=== PATIENT | female | born 1970 | race Caucasian/White ===

== ENCOUNTER 2018-05-08 10:22 | Day surgery (SDC) | payer MEDICARE, MEDICAID ==
[~2018-05-08 10:22] MED LIST: Acetaminophen TAB* 325 MG PO ONE; Buffered Lidocaine 0.9% SYRIN* 5 ML/SYR SYRINGE INTRADERM ONE; DiMENhydriNATE IV* 50 MG/ML VIAL IV PUSH PRN; HYDROcodone/ACETAMIN 5-325 MG* 1 TAB PO PRN; HYDROmorphone INJ1* 1 MG/ML SYRINGE IV PRN; Lactated Ringers 1000 ML Bag* 1,000 ML IV SCH; Levalbuterol 0.63MG/3ML NEB* UNIT OF USE INH PRN; Naloxone* 0.4 MG/ML 1 ML VIAL IV PRN; Ondansetron INJ* 2 MG/ML VIAL IV PRN; PROCHLORPERAZINE INJ 5 MG/ML 2 ML VIAL IV PRN; Scopolamine 1.5 mg* PATCH TRANSDERM PRN; diPHENhydraMINE IV* 50 MG/ML 1 ml VIAL (BENADRYL) IV PRN; fentaNYL* 50 MCG/ML 2 ML VIAL (100 MCG VIAL) IV PRN
[2018-05-08] MEDS ORDERED: Succinylcholine* 20 MG/ML 10 ML VIAL ONE (10:37)
[2018-05-08] MEDS ORDERED: Acetaminophen TAB* 325 MG ONE (10:57)
[2018-05-08] MEDS ORDERED: Midazolam* 1 MG/ML 2 ML VIAL (2 MG) ONE (12:00)
[2018-05-08] MEDS ORDERED: fentaNYL* 50 MCG/ML 2 ML VIAL (100 MCG VIAL) ONE (12:00)
[2018-05-08] MEDS ORDERED: Lidocaine 2% PF * 5 ML VIAL ONE ×2 (12:29)
[2018-05-08] MEDS ORDERED: Propofol* 10 MG/ML 20 ML BTL ONE (12:29)
[2018-05-08] MEDS ORDERED: Ondansetron INJ* 2 MG/ML VIAL ONE (12:29)
[2018-05-08] MEDS ORDERED: Dexamethasone IV* 4 MG/ML 1 ML (4 MG) ONE (12:29)
[2018-05-08] MEDS ORDERED: HYDROcodone/ACET. 7.5/325 LIQ* 15 ML UDC ONE (13:17)
[2018-05-08 14:00] VITALS: BP 105/55
--- NOTE | 2018-05-08 20:10 | OP ---
DATE OF OPERATION: 05/08/18 - [facility] DATE OF : 66 SURGEON: Irvin Castellano MD PRE-OP DIAGNOSIS: Right tonsil mass. POST-OP DIAGNOSIS: Right tonsil mass. OPERATIVE PROCEDURE: Biopsy, right tonsil. INDICATIONS: This 47-year-old female smoker noted on examination to have a right tonsil mass, this was difficult to biopsy because of excessive gag in the office. DESCRIPTION OF PROCEDURE: The patient was taken to the operating room. General anesthetic was given. The patient was intubated. suspending the tongue, mandible, and soft palate. Right tonsil was palpated and examined. There was a large papillomatous lesion, appeared to be like a papilloma, most likely viral etiology. Bipolar forceps were used to resect it out, sent for permanent section. Palpating both tonsils, tongue base, and soft palate region was all soft with no evidence of any neoplasm. The patient was therefore then awakened and sent to the recovery room in stable condition. Instrument and sponge counts were correct. Blood loss minimal. [id number]/[facility] #: [id number] [facility]
[2018-05-11] MEDS ORDERED: Scopolamine PATCH Remove* 1 NOTE MISC PATCH OFF ONE (09:54)
== END 2018-05-08 16:38 | disposition home or self-care (01) ==
LOC: OR 10:22
PROVIDERS: ATTEND Otolaryngology
DX: D10.6 Benign neoplasm of nasopharynx (principal); F17.210 Nicotine dependence, cigarettes, uncomplicated; E11.9 Type 2 diabetes mellitus without complications; Z79.84 Long term (current) use of oral hypoglycemic drugs; E03.9 Hypothyroidism, unspecified; F41.8 Other specified anxiety disorders; G47.33 Obstructive sleep apnea (adult) (pediatric)
CPT/HCPCS: 88305; A9270-GY; J0330; J1100; J2250; J2405; J2704; J3010

== ENCOUNTER 2018-05-10 17:07 | Emergency (ER) | payer MEDICARE, MEDICAID ==
--- OUTSIDE RECORDS SUMMARY | 2018-05-10 17:49 | XMS REPORT | Continuity of Care Document ---
:1970 External Reference #:[id number] Author Name Dagmar De Dios Care Team Providers Name Role Phone Emily Carr MD Primary Care Physician Unavailable Payers Type Date Identification Numbers Payment Provider Subscriber Effective: 2014 Policy Number: [id number] Medicare Tierra Christy PayID: [id number] [address] [place] [address] Effective: 2014 Policy Number: [id number] Medicaid Tierra Christy Group Name: 1 1 [address] PayID: [id number] [place] [address] Effective: 2011 Policy Number: [employer] Medicaid Tierra Christy [id number] Expires: 2014 PayID: [id number] [address] [address] [place] [address] Advance Directives Description No Information Available Problems Date Description Provider Status Onset: 07/18/2011 Obesity Trisha Long M.D. Active Onset: 12/21/2015 Hyperlipidemia Emily Carr M.D. Active Onset: 12/21/2015 Tobacco user Emily Carr M.D. Active Onset: 08/29/2016 Type 2 diabetes mellitus Emily Carr M.D. 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 Inactive Inactive: 08/29/2016 Onset: 01/24/2016 Impaired fasting glycaemia Emily Carr M.D. Inactive Inactive: 08/29/2016 Onset: 07/18/2011 Edema Trisha Long M.D. Inactive Inactive: 08/29/2016 Onset: 07/18/2011 Adjustment disorder with depressed Trisha Long M.D. Resolved mood Resolved: 10/31/2016 Family History Date Family Member(s) Problem(s) Comments General Breast Cancer : (age 49 Father due to Cancer unk cancer of Years) bleeding Mother 78 Social History Type Date Description Comments Sex Unknown Marital Status Marital Status 2 Times Occupation Disabled depression following work related CTS Tobacco Use Start: Unknown current cigarette 1 pk /day smoker Smoking Status Reviewed: 04/22/18 current cigarette 1 pk /day smoker ETOH Use Denies alcohol use Tobacco Use Start: Unknown Patient is a current smokes 1 ppd smoker, smokes every day Recreational Drug Use Denies Drug Use Exercise Type/Frequency Exercises sporadically Allergies, Adverse Reactions, Alerts Date Description Reaction Status Severity Comments 06/16/2011 Paxil Contact dermatitis Active Medications Medication Date Status Form Strength Qnty SIG Indications Ordering Provider Bupropion HCL ER 04/18 Active Tablets ER 150mg 180ta take one F32.89 Emily (SR) 12HR bs tablet by brittany Carr M.DTangela daily X 7 days then every 12 hours Levothyroxine 01/21 Active Tablets 50mcg 90tab 1 by mouth Emily Sodium s every day Santo Carr Metformin HCL 08/29 Active Tablets 500mg 120ta 2 by mouth Z01.818 bs in in the Carr, morning M.DTangela and 2 tab at night daily Onetouch Delica 06/12 Active Misc 100un check once R73.01 Emily Lancets its a Jaime Carr 33G day.please M.D. notify pt. when ready. Zetia 10/14 Active Tablets 10mg 90tab take one Emily s tablet by Carr, mouth M.D. every evening Ra Loratadine 01/21 Active Tablets 10mg 30tab 1 by mouth Emily /2014 s every day Santo Carr Onetouch Ultra 10/16 Active Strips 180un test 1 R73.01 Emily its times a Bruno, day or as M.D. needed dx e11.9 Pravachol 10/08 Active Tablets 80mg 90tab one at E75.6 s night Santo Carr Aspirin 81 Low 07/18 Hx Chewtabs 81mg once a day Emily otc Charlie Carr M.D. 01/16 Eq Nicotine 07/18 Hx Patches 21mg/24HR 28uni use as F17.210 Emily /2018 24HR ts Charlie Toure M.D. 08/22 Wellbutrin SR 07/18 Hx Tablets ER 100mg 30tab not sure F17.210 Emily /2018 12HR s if she is Bruno, - taking---o MTangelaDTangela 04/18 nce a Nicorette Starter 06/12 Hx Gum 2mg 100un use a Emily its piece of Charlie Carr gum in M.D. 07/15 place cigarettes Chantix 04/16 Hx Tablets 1mg 30tab as Emily Continuing s directed Mehdi Carr - Santo 06/12 Chantix Starting 03/23 Hx Tablets 0.5mg X 53tab take as Emily 11 & 1 mg s Charlie Toure X 42 on the M.D. 04/16 Tolnaftate 01/29 Hx Powder 1% 45gm apply on B35.3 Charlie Khan affected M.D. 04/15 areas of foot twice a day Valacyclovir HCL 10/28 Hx Tablets 1gm take 1 tablet by - mouth 11/07 times a day Diflucan 08/26 Hx Tablets 150mg 2tabs 1 tab by Z12.4 Trisha mouth once Charlie Long and Santo 10/14 repeat in 1 week Venlafaxine HCL 06/18 Hx Caps ER 75mg 90cap 1 by mouth F43.21 Trisha 24HR s every day Charlie Long M.D. 01/26 Keflex 01/15 Hx Capsules 250mg 30cap 1 tab by 682.6 Trisha s mouth Charlie Long every 8 M.DTangela Glucophage XR 01/15 Hx Tablets ER 1000mg 60tab 1 by mouth Trisha 24HR s 2x per day Charlie Long M.D. 12/20 Fluticasone 01/15 Hx Suspension 50mcg/Act 1unit 2 sprays 477.9 Trisha s each Charlie Long nostril Santo 06/182016 Metformin HCL ER 11/12 Hx Tablets ER 500mg 30tab 1 by mouth Trisha 24HR s every day Charlie Long M.D. 11/12 Metformin HCL ER 11/12 Hx Tablets ER 500mg 30tab 1 by mouth Trisha (Osm) 24HR s every day Charlie Long M.D. 11/12 Glucophage XR 11/12 Hx Tablets ER 500mg 30tab 1 by mouth Trisha 24HR s every day Charlie Long M.D. 01/15 Metformin HCL ER 11/10 Hx Tablets ER 500mg 30tab 1 by mouth 790.21 Trisha (Osm) 24HR s every day Charlie Long M.D. 11/12 Hydrochlorothiazi 11/10 Hx Tablets 12.5mg 30tab 1 by mouth 782.3 Trisha yadav s every day Charlie Long M.D. 12/20 Onetouch Lancets 10/16 Hx Misc 100un use 2 x R73.01 Emily /2015 its daily dx Charlie Carr.Srinivasan 06/12 r73. Hydrochlorothiazi 09/15 Hx Tablets 12.5mg 30tab 1 by mouth 729.81 Trisha de s every day Charlie Long M.D. 01/15 Bupropion HCL ER 09/07 Hx Tablets ER 200mg 30tab 1 by mouth Trisha (SR) 12HR s every day Charlie Long M.D. 01/26 Bupropion 06/12 Hx Tablets ER 200mg 30tab 1 by mouth Trisha 12HR s qd Charlie Long M.D. 09/07 Sulfamethoxazole/ 02/27 Hx Tablets 800-160mg 10tab 1 tab by 788.1 Trisha Trimethoprim s mouth 2x Charlie Long per day Santo 03/[address] 02/[address] 500mg 60tab not taking 842.01 Charlie Mccord M.D. 10/16 Splint Formed 02/06 Hx 2unit 842.01 Trisha Charlie Mccord M.D. 01/02 Fexofenadine HCL 06/03 Hx Tablets 180mg 30tab 1 by mouth s every day Charlie Long M.D. 06/18 Bupropion HCL XL 04/25 Hx Tablets ER 150mg 30tab 1 po qd 309.0 24HR s Charlie Long M.D. 05/26 Sulfamethoxazole/ 02/18 Hx Tablets 800-160mg 14tab 1 tab po 788.1 Trisha Trimethoprim s 2x per day Charlie Long M.D. 04/25 Venlafaxine HCL 01/16 Hx Caps ER 150mg 90cap 1 by mouth 24HR s every day Charlie Long M.D. 10/31 Fexofenadine HCL 12/27 Hx Tablets 180mg 30tab 1 po qd 461.8 Charlie Mccord M.D. 04/25 Venlafaxine HCL 12/27 Hx Caps ER 75mg 30cap 1 po qd 309.0 Trisha ER 24HR Charlie Mccord M.D. 08/26 Venlafaxine HCL 09/17 Hx Caps ER 150mg 90cap 1 po qd Trisha ER 24HR Charlie Mccord M.D. 01/16 Metronidazole 06/27 Hx Gel 0.75% 1tube 1 applicator Charlie Long M.D. 09/17 al for days Venlafaxine HCL 05/13 Hx Tablets 75mg 30tab 1 po qd Charlie Mccord M.D. 09/17 Venlafaxine HCL 05/09 Hx Caps ER 37.5mg 50cap 1 tab po 309.0 Trisha 24HR s every day Ethan, - for 7 M.D. 05/14 days, 2 tab po every day for 3 weeks Pravachol 05/09 Hx Tablets 40mg 60tab 2 tab by 272.9 Trisha s mouth Ethan, - every day M.D. 10/08 Sertraline HCL 12/04 Hx Tablets 100mg 45tab 1 1/ tab 309.0 Trisha /2012 s po qd Ethan - M.D. 05/09 Pravachol 09/04 Hx Tablets 80mg 30tab 1 tab po Trisha s everyday Ethan - M.D. 05/14 Pravastatin 06/20 Hx Tablets 40mg 90tab take 1 Trisha s tablet by Ethan, - mouth once M.D. 09/06 Furosemide 06/16 Hx Tablets 20mg 10tab 1/2 tab po 272.9 s every day Ethan, - for 5 M.D. 06/16 days. september contine for 10 days if swelling is not gone Sertraline HCL 06/16 Hx Tablets 100mg 30tab 1 po qd Trisha /2012 s Ethan - M.D. 05/09 Furosemide Hx Tablets 20mg 60tab 1 po qam Trisha / s Ethan - M.D. 12/04 Sertraline HCL Hx Tablets 100mg 90tab 1 po qd Unknown /0000 s - 06/16 Sertraline 00 Hx Tablets 100 30tab 1 po qd Jey, / cristofer Wisdom - DO 06/16 Pravastatin Hx Tablets 100mg 30tab 1 tablet Unknown Sodium /0000 s once daily - at bedtime 07/17 Furosemide Hx Tablets 20mg 30tab take 1 Trisha s tablet Ethan - every M.D. 05/09 Bupropion HCL SR Hx Tablets 200mg 30tab 1 by mouth Ethan, /0000 s qd Charlie Rico MD 06/12 Tramadol HCL Hx Tablets 50mg 50tab four times Unknown /0000 s a day as - needed 03/18 Trazodone HCL Hx Tablets 50mg 30tab 1-2 tablet Emily /0000 s at bedtime Bruno - as needed M.DTangela 08/22 Folic Acid Hx Tablets 400mcg take one Unknown /0000 tablet by - mouth 10/21 every day (supplemen t) Vitamin C Plus 00 Hx Tablets 1000mg 1 by mouth Unknown /0000 1 time - week;ly 08/22 Vitamin D2 Hx Tablets 50,000Uni 1 by mouth Unknown /0000 ts once a - week for 8 Immunizations CPT Code Status Date Vaccine Lot # [id number] Given 01/16/2018 Influenza Virus Vaccine, Quadrivalent, Split, [id number] Preservative Free 52549 Given 07/18/2017 Pneumonia Vaccine [id number] 68256 Given 01/29/2017 Influenza Virus Vaccine, Quadrivalent, Split, [id number] Preservative Free 57542 Given 08/29/2016 Tdap - Tetanus/Diptheria/Acellular Pertussis [id number] 02658 Given 08/29/2016 Pneumococcal Conjugate Vaccine 13 Valent For [id number] Intramuscular Use 93569 Given 01/27/2016 Influenza Virus Vaccine, Quadrivalent, Split, [id number] Preservative Free 07375 Given 06/18/2015 Influenza Virus Vaccine, Quadrivalent, Split, [id number] Preservative Free 93194 Given 02/27/2014 Flu Vaccine Split Virus Preservative Free For [id number] Indiv 3Yr Older 56260 Given 02/18/2013 Flu Vaccine Split Virus Preservative Free For [id number] Indiv 3Yr Older Vital Signs Date Vital Result Comment 04/22/2018 7:31am Height 61.7 inches 5'1.70" Weight 220.00 lb Heart Rate 85 /min BP Systolic Sitting 128 mmHg BP Diastolic Sitting 80 mmHg O2 % BldC Oximetry 98 % BMI (Body Mass Index) 40.6 kg/m2 04/18/2018 10:07am Height 61.7 inches 5'1.70" Weight 221.00 lb Heart Rate 85 /min BP Systolic Sitting 120 mmHg BP Diastolic Sitting 78 mmHg O2 % BldC Oximetry 98 % BMI (Body Mass Index) 40.8 kg/m2 04/16/2018 1:07pm Height 61.7 inches 5'1.70" Weight 222.25 lb Heart Rate 84 /min BP Systolic Sitting 128 mmHg Lue large cuff BP Diastolic Sitting 78 mmHg Lue large cuff Respiratory Rate 16 /min O2 % BldC Oximetry 98 % BMI (Body Mass Index) 41.0 kg/m2 01/16/2018 1:01pm Height 61.7 inches 5'1.70" Weight 229.00 lb Heart Rate 78 /min BP Systolic Sitting 128 mmHg BP Diastolic Sitting 80 mmHg O2 % BldC Oximetry 98 % BMI (Body Mass Index) 42.3 kg/m2 10/22/2017 9:48am Height 62 inches 5'2" Weight 225.25 lb Heart Rate 88 /min BP Systolic Sitting 126 mmHg Lue large cuff BP Diastolic Sitting 90 mmHg Lue large cuff Respiratory Rate 16 /min O2 % BldC Oximetry 98 % BMI (Body Mass Index) 41.2 kg/m2 08/22/2017 3:39pm Weight 227.00 lb Heart Rate 84 /min BP Systolic Sitting 130 mmHg BP Diastolic Sitting 76 mmHg O2 % BldC Oximetry 97 % 07/18/2017 10:35am Weight 225.00 lb Heart Rate 87 /min BP Systolic Sitting 128 mmHg BP Diastolic Sitting 82 mmHg O2 % BldC Oximetry 98 % 07/16/2017 10:10am Height 62 inches 5'2" Weight 223.00 lb Heart Rate 92 /min BP Systolic Sitting 110 mmHg BP Diastolic Sitting 82 mmHg Respiratory Rate 14 /min O2 % BldC Oximetry 98 % BMI (Body Mass Index) 40.8 kg/m2 04/16/2017 10:24am Height 62 inches 5'2" Weight 226.00 lb Heart Rate 72 /min BP Systolic Sitting 120 mmHg BP Diastolic Sitting 80 mmHg Respiratory Rate 14 /min O2 % BldC Oximetry 98 % BMI (Body Mass Index) 41.3 kg/m2 02/14/2017 10:55am Height 62 inches 5'2" Weight 220.00 lb BMI (Body Mass Index) 40.2 kg/m2 02/14/2017 10:48am Weight 220.00 lb Heart Rate 88 /min BP Systolic 120 mmHg BP Diastolic 80 mmHg Respiratory Rate 14 /min 01/29/2017 11:57am Weight 217.38 lb Heart Rate 76 /min BP Systolic Sitting 122 mmHg BP Diastolic Sitting 82 mmHg Body Temperature 97.6 F O2 % BldC Oximetry 98 % 01/03/2017 12:05pm Height 62 inches 5'2" Weight 214.00 lb Heart Rate 84 /min BP Systolic Sitting 124 mmHg BP Diastolic Sitting 78 mmHg Respiratory Rate 16 /min Pain Level 0 O2 % BldC Oximetry 98 % BMI (Body Mass Index) 39.1 kg/m2 12/18/2016 11:23am Height 62 inches 5'2" Weight 218.00 lb Heart Rate 72 /min BP Systolic Sitting 102 mmHg BP Diastolic Sitting 68 mmHg Respiratory Rate 14 /min O2 % BldC Oximetry 98 % BMI (Body Mass Index) 39.9 kg/m2 Neck Circumference in inches 15 10/31/2016 9:02am Weight 227.00 lb Heart Rate 79 /min BP Systolic 118 mmHg BP Diastolic 64 mmHg Body Temperature 97.7 F O2 % BldC Oximetry 98 % 08/29/2016 11:24am Height 62 inches 5'2" Weight 217.00 lb Heart Rate 76 /min BP Systolic 120 mmHg BP Diastolic 80 mmHg Body Temperature 97.4 F O2 % BldC Oximetry 98 % BMI (Body Mass Index) 39.7 kg/m2 01/27/2016 10:59am Weight 209.00 lb Heart Rate 75 /min BP Systolic Sitting 132 mmHg BP Diastolic Sitting 80 mmHg Body Temperature 97.5 F O2 % BldC Oximetry 98 % 12/21/2015 11:46am Weight 211.00 lb Heart Rate 84 /min BP Systolic Sitting 120 mmHg BP Diastolic Sitting 84 mmHg Body Temperature 97.7 F O2 % BldC Oximetry 98 % 10/15/2015 11:57am Weight 216.00 lb Heart Rate 74 /min BP Systolic Sitting 108 mmHg BP Diastolic Sitting 70 mmHg Body Temperature 97.9 F O2 % BldC Oximetry 98 % 08/27/2015 10:51am Weight 221.00 lb Heart Rate 75 /min BP Systolic Sitting 120 mmHg BP Diastolic Sitting 80 mmHg Body Temperature 98.3 F O2 % BldC Oximetry 98 % 06/18/2015 10:15am Height 60 inches 5'0" Weight 219.75 lb Heart Rate 82 /min BP Systolic Sitting 120 mmHg BP Diastolic Sitting 70 mmHg Body Temperature 97.5 F O2 % BldC Oximetry 98 % BMI (Body Mass Index) 42.9 kg/m2 01/29/2015 11:36am Weight 226.50 lb Heart Rate 83 /min BP Systolic Sitting 120 mmHg BP Diastolic Sitting 80 mmHg Body Temperature 96.7 F Pain Level 0 O2 % BldC Oximetry 99 % 01/15/2015 11:42am Weight 229.00 lb Heart Rate 109 /min BP Systolic Sitting 122 mmHg BP Diastolic Sitting 64 mmHg Body Temperature 100.7 F O2 % BldC Oximetry 96 % 11/12/2014 11:38am Height 60 inches 5'0" Weight 238.00 lb Pain Level 1 BMI (Body Mass Index) 46.5 kg/m2 11/10/2014 2:40pm Weight 238.50 lb Heart Rate 90 /min BP Systolic Sitting 112 mmHg BP Diastolic Sitting 68 mmHg Body Temperature 98.0 F O2 % BldC Oximetry 98 % 10/16/2014 2:33pm Height 60 inches 5'0" Weight 235.75 lb Heart Rate 98 /min BP Systolic Sitting 130 mmHg BP Diastolic Sitting 82 mmHg O2 % BldC Oximetry 98 % BMI (Body Mass Index) 46.0 kg/m2 10/08/2014 10:22am Height 60 inches 5'0" Weight 235.00 lb Pain Level 7 BMI (Body Mass Index) 45.9 kg/m2 09/15/2014 12:41pm Height 60 inches 5'0" Weight 235.75 lb Heart Rate 102 /min BP Systolic Sitting 124 mmHg BP Diastolic Sitting 76 mmHg Body Temperature 98.0 F Pain Level 4 O2 % BldC Oximetry 97 % BMI (Body Mass Index) 46.0 kg/m2 07/23/2014 10:02am Height 60 inches 5'0" Weight 227.00 lb Heart Rate 80 /min BMI (Body Mass Index) 44.3 kg/m2 07/03/2014 10:41am Height 60 inches 5'0" Weight 227.00 lb Heart Rate 82 /min BMI (Body Mass Index) 44.3 kg/m2 06/12/2014 2:35pm Weight 227.75 lb Heart Rate 76 /min BP Systolic Sitting 118 mmHg BP Diastolic Sitting 68 mmHg Body Temperature 98.1 F 05/28/2014 11:37am Height 60 inches 5'0" Heart Rate 84 /min BP Systolic 121 mmHg BP Diastolic 72 mmHg 03/19/2014 8:43am Height 60 inches 5'0" Weight 220.00 lb Heart Rate 88 /min BP Systolic 138 mmHg BP Diastolic 84 mmHg BMI (Body Mass Index) 43.0 kg/m2 03/18/2014 8:45am Height 60.50 inches 5'0.50" Weight 223.50 lb Heart Rate 91 /min BP Systolic Sitting 106 mmHg BP Diastolic Sitting 64 mmHg Body Temperature 98.4 F Pain Level 3 O2 % BldC Oximetry 98 % BMI (Body Mass Index) 42.9 kg/m2 03/05/2014 9:14am Height 60.50 inches 5'0.50" Weight 221.00 lb Heart Rate 88 /min BP Systolic Sitting 127 mmHg BP Diastolic Sitting 75 mmHg Pain Level 5 BMI (Body Mass Index) 42.4 kg/m2 02/27/2014 2:57pm Height 60.50 inches 5'0.50" Weight 221.00 lb Heart Rate 78 /min BP Systolic Sitting 110 mmHg BP Diastolic Sitting 80 mmHg Body Temperature 98.8 F O2 % BldC Oximetry 98 % BMI (Body Mass Index) 42.4 kg/m2 02/06/2014 4:40pm Weight 222.00 lb Heart Rate 96 /min BP Systolic Sitting 126 mmHg BP Diastolic Sitting 80 mmHg 11/25/2013 3:51pm Height 60.75 inches 5'0.75" Weight 222.00 lb Heart Rate 88 /min BP Systolic Sitting 110 mmHg BP Diastolic Sitting 80 mmHg BMI (Body Mass Index) 42.3 kg/m2 10/20/2013 4:02pm Height 60.75 inches 5'0.75" Weight 231.25 lb Heart Rate 92 /min BP Systolic Sitting 120 mmHg BP Diastolic Sitting 60 mmHg Body Temperature 98.7 F BMI (Body Mass Index) 44.0 kg/m2 08/26/2013 2:40pm Weight 229.00 lb Heart Rate 85 /min BP Systolic Sitting 109 mmHg BP Diastolic Sitting 67 mmHg 05/26/2013 3:56pm Weight 230.00 lb Heart Rate 94 /min BP Systolic Sitting 116 mmHg BP Diastolic Sitting 72 mmHg 04/25/2013 1:39pm Weight 227.50 lb Heart Rate 83 /min BP Systolic Sitting 116 mmHg BP Diastolic Sitting 74 mmHg 02/27/2013 12:11pm Heart Rate 98 /min BP Systolic Sitting 130 mmHg BP Diastolic Sitting 82 mmHg Body Temperature 96.8 F O2 % BldC Oximetry 96 % 02/18/2013 12:49pm Weight 227.00 lb Heart Rate 87 /min BP Systolic Sitting 131 mmHg BP Diastolic Sitting 83 mmHg Body Temperature 97.0 F 01/16/2013 1:32pm Weight 229.00 lb Heart Rate 87 /min BP Systolic Sitting 110 mmHg BP Diastolic Sitting 80 mmHg 12/27/2012 2:45pm Weight 227.00 lb Heart Rate 92 /min BP Systolic Sitting 142 mmHg BP Diastolic Sitting 95 mmHg BP Systolic Standing 151 mmHg BP Diastolic Standing 92 mmHg 09/17/2012 2:01pm Weight 222.00 lb Heart Rate 73 /min BP Systolic Sitting 123 mmHg BP Diastolic Sitting 68 mmHg 06/25/2012 2:36pm Height 60.75 inches 5'0.75" Weight 215.31 lb Heart Rate 80 /min BP Systolic Sitting 125 mmHg BP Diastolic Sitting 78 mmHg BMI (Body Mass Index) 41.0 kg/m2 05/09/2012 3:56pm Height 60.75 inches 5'0.75" Weight 215.00 lb Heart Rate 86 /min BP Systolic Sitting 126 mmHg BP Diastolic Sitting 68 mmHg BMI (Body Mass Index) 41.0 kg/m2 12/05/2011 4:34pm Height 60.75 inches 5'0.75" Weight 215.00 lb Heart Rate 88 /min BP Systolic Sitting 112 mmHg BP Diastolic Sitting 62 mmHg BMI (Body Mass Index) 41.0 kg/m2 07/18/2011 3:02pm Height 60.75 inches 5'0.75" Weight 209.00 lb Heart Rate 80 /min BP Systolic Sitting 123 mmHg BP Diastolic Sitting 72 mmHg Body Temperature 98.7 F BMI (Body Mass Index) 39.8 kg/m2 06/16/2011 1:59pm Height 60.75 inches 5'0.75" Weight 203.00 lb Heart Rate 80 /min BP Systolic Sitting 132 mmHg BP Diastolic Sitting 74 mmHg BMI (Body Mass Index) 38.7 kg/m2 Results Test Date Facility Test Result H/L Range Note CBC Auto Diff 04/22/2018 [facility] White Blood 7.8 10^3/uL N 3.5-10.[address] [place] [address] [phone] Red Blood Count 4.64 10^6/uL N 4.00-5.40 Hemoglobin 13.1 g/dL N 12.0-16.0 Hematocrit 40 % N 35-47 Mean Corpuscular Volume 86 fL N 80-97 Mean Corpuscular Hemoglobin 28 pg N 27-31 Mean Corpuscular HGB Conc 33 g/dL N 31-36 Red Cell Distribution Width 15 % N 10.5-15 Platelet Count 367 10^3/uL N 150-450 Mean Platelet Volume 7.8 fL N 7.4-10.4 Abs Neutrophils 4.5 10^3/uL N 1.5-7.7 Abs Lymphocytes 2.5 10^3/uL N 1.0-4.8 Abs Monocytes 0.5 10^3/uL N 0-0.8 Abs Eosinophils 0.2 10^3/uL N 0-0.6 Abs Basophils 0.1 10^3/uL N 0-0.2 Abs Nucleated RBC 0 10^3/uL Granulocyte % 57.9 % Lymphocyte % 31.6 % Monocyte % 6.6 % Eosinophil % 2.9 % Basophil % 1.0 % Nucleated Red Blood Cells % 0 Comp Metabolic Panel 04/22/2018 [facility] Sodium 140 mmol/L N 135-[address] [place] [address] [phone] Potassium 4.1 mmol/L N 3.5-5.0 Chloride 108 mmol/L N 101-111 Co2 Carbon Dioxide 25 mmol/L N 22-32 Anion Gap 7 mmol/L N 2-11 Glucose 94 mg/dL N 70-100 Blood Urea Nitrogen 13 mg/dL N 6-24 Creatinine 0.95 mg/dL N 0.51-0.95 BUN/Creatinine Ratio 13.7 N 8-20 Calcium 9.1 mg/dL N 8.6-10.3 Total Protein 6.2 g/dL Low 6.4-8.9 Albumin 3.9 g/dL N 3.2-5.2 Globulin 2.3 g/dL N 2-4 Albumin/Globulin Ratio 1.7 N 1-3 Total Bilirubin 0.30 mg/dL N 0.2-1.0 Alkaline Phosphatase 58 U/L N 34-104 Alt 15 U/L N 7-52 Ast 12 U/L Low 13-39 Egfr Non- 62.5 >60 Egfr 75.7 >60 1 Laboratory 04/22/2018 [facility] Partial 29.9 seconds N 26.0- 36.3 test finding [address] [place] [address] PTT [phone] Inr/Protime 04/22/2018 [facility] Inr 0.86 N 0.77-1.[address] [place] [address] [phone] HIV 1/2 AB 04/22/2018 [facility] HIV 1 2 Nonreactive Nonreactive [address] [place] [address] [phone] Laboratory 04/09/2018 [facility] B-Type 14 pg/mL <=100 test finding [address] [place] [address] Peptide BNP [phone] TSH (Thyroid Stim Horm) 3.47 mcIU/mL N 0.34-5.60 Laboratory test 04/09/2018 [facility] Hemoglobin A1c 5.9 % High 4.0-5.[address] (Glyco HGB) [place] [address] [phone] Laboratory test 02/04/2018 [facility] T3 Free 3.80 N 2.5-3.[address] pg/[place] [address] [phone] Free T4 (Free Thyroxine) 0.83 ng/dL N 0.61-1.12 TSH (Thyroid Stim Horm) 3.83 mcIU/mL N 0.34-5.60 Laboratory test 01/16/2018 [facility] B-Type Natriuretic 17 pg/ mL [address] [place] [place] [address] [phone] TSH (Thyroid Stim Horm) 8.41 mcIU/mL High 0.34-5.60 Free T4 (Free Thyroxine) 0.59 ng/dL Low 0.61-1.12 T3 Free 3.40 pg/mL N 2.5-3.9 Thyroperoxidase AB 2008.75 IU/mL High <9 Urine Microalbumin 01/16/2018 [facility] Ur Microalbumin 73.[address] (mg/L) [place] [address] [phone] Urine Creatinine 135.34 mg/dL Urine Microalbumin/Creatinine 54.6 High <31 Ua Routine 01/16/2018 [facility] Ua Specific [place] 1.020 Ua PH 5 Ua Color yellow Ua Appera cloudy Ua WBC ++ Ua Protein trace Ua Glucose norm Ua Ketones - Ua Bilirubin - Ua Urobilinogen norm Ua Nitrite + Ua Occult Blood 50 Laboratory test 10/29/2017 [facility] Hemoglobin A1c 6.3 % High 4.0-5.6 [address] [place] [address] [phone] Lipid Profile 07/19/2017 [facility] Triglycerides 204 7 (Trig/Chol/HDL) [address] mg/[place] [address] [phone] Cholesterol 148 mg/dL 8 HDL Cholesterol 34.4 mg/dL 9 LDL Cholesterol 73 mg/dL 10 Laboratory test 07/18/2017 [facility] Hemoglobin A1c 6.6 5-7 finding Laboratory test 01/29/2017 [facility] Hemoglobin A1c 6.0 5-7 finding Laboratory test 08/29/2016 [facility] Cytology SEE RESULT [address] [place] [address] [phone] Urine Microalbumin 08/29/2016 [facility] Urine Creatinine 92.71 mg/dL N Random [address] [place] [address] [phone] Ur Microalbumin (mg/L) < 15.0 mg/L N Urine Microalbumin/Creatinine TNP ug/mg N <31 12 Basic Metabolic Panel 08/26/2016 [facility] Sodium 135 mmol/L N 133-[address] [place] [address] [phone] Potassium 4.4 mmol/L N 3.5-5.0 Chloride 106 mmol/L N 101-111 Co2 Carbon Dioxide 27 mmol/L N 22-32 Anion Gap 2 mmol/L N 2-11 Glucose 123 mg/dL High 70-100 Blood Urea Nitrogen 13 mg/dL N 6-24 Creatinine 0.92 mg/dL N 0.51-0.95 BUN/Creatinine Ratio 14.1 N 8-20 Calcium 8.7 mg/dL N 8.6-10.3 Egfr Non- 65.2 N >60 Egfr 83.8 N >60 13 Lipid Profile 08/26/2016 [facility] Triglycerides 164 mg/dL N 14 (Trig/Chol/HDL) [address] [place] [address] [phone] Cholesterol 191 mg/dL N 15 HDL Cholesterol 31.2 mg/dL N 16 LDL Cholesterol 127 mg/dL N 17 Laboratory test 08/26/2016 [facility] Hemoglobin A1c 6.4 % High Less than [address] (Glyco HGB) 6.0 [place] [address] [phone] CBC Auto Diff 08/26/2016 [facility] White Blood 7.2 N 3.5- 10.[address] Count 10^3/[place] [address] [phone] Red Blood Count 5.35 10^6/uL N 4.0-5.4 Hemoglobin 15.3 g/dL N 12.0-16.0 Hematocrit 46 % N 35-47 Mean Corpuscular Volume 85 fL N 80-97 Mean Corpuscular Hemoglobin 29 pg N 27-31 Mean Corpuscular HGB Conc 34 g/dL N 31-36 Red Cell Distribution Width 15 % N 10.5-15 Platelet Count 301 10^3/uL N 150-450 Mean Platelet Volume 8 um3 N 7.4-10.4 Abs Neutrophils 3.7 10^3/uL N 1.5-7.7 Abs Lymphocytes 2.8 10^3/uL N 1.0-4.8 Abs Monocytes 0.4 10^3/uL N 0-0.8 Abs Eosinophils 0.2 10^3/uL N 0-0.6 Abs Basophils 0.1 10^3/uL N 0-0.2 Abs Nucleated RBC 0.01 10^3/uL N Granulocyte % 50.8 % N 38-83 Lymphocyte % 38.9 % N 25-47 Monocyte % 6.2 % N 1-9 Eosinophil % 3.1 % N 0-6 Basophil % 1.0 % N 0-2 Nucleated Red Blood Cells % 0.1 N Comp Metabolic Panel 01/21/2016 [facility] Sodium 139 mmol/L N 133-[address] [place] [address] [phone] Potassium 4.1 mmol/L N 3.5-5.0 Chloride 107 mmol/L N 101-111 Co2 Carbon Dioxide 28 mmol/L N 22-32 Anion Gap 4 mmol/L N 2-11 Glucose 100 mg/dL N 70-100 Blood Urea Nitrogen 10 mg/dL N 6-24 Creatinine 0.84 mg/dL N 0.51-0.95 BUN/Creatinine Ratio 11.9 N 8-20 Calcium 8.8 mg/dL N 8.6-10.3 Total Protein 6.1 g/dL Low 6.4-8.9 Albumin 3.7 g/dL N 3.2-5.2 Globulin 2.4 g/dL N 2-4 Albumin/Globulin Ratio 1.5 N 1-3 Total Bilirubin 0.30 mg/dL N 0.2-1.0 Alkaline Phosphatase 53 U/L N 34-104 Alt 17 U/L N 7-52 Ast 11 U/L Low 13-39 Egfr Non- 72.7 N >60 Egfr 93.5 N >60 19 Laboratory test 01/21/2016 [facility] Hemoglobin A1c 6.1 % High Less [address] (Glyco HGB) than 6.0 [place], [place] [id number] [phone] Lipid Profile 12/04/2015 [facility] Triglycerides 133 N 21 (Trig/Chol/HDL) [address] mg/dL [place], [place] [id number] [phone] Cholesterol 157 mg/dL N 22 HDL Cholesterol 28.8 mg/dL N 23 LDL Cholesterol 102 mg/dL N 24 Herpes Simplex 12/04/2015 [facility] Herpes Simplex Negative N Negative Type 1&[address] Virus I IgG AB [place], [place] [id number] [phone] Herpes Simplex Virus II IgG AB Positive N Negative 25 Laboratory 12/04/2015 [facility] HIV 1&2 AB Nonreactive N Nonreactive 26 test finding [address] [place] [address] Referred [phone] Laboratory 08/27/2015 [facility] Cytology SEE RESULT 27 test finding [address] BELOW [place], [place] [id number] [phone] HPV Rna Ww/Reflex Genotype Negative N Negative 28 Lipid Profile 08/21/2015 [facility] Triglycerides 193 mg/dL N 29 (Trig/Chol/HDL) [address] [place], [place] [id number] [phone] Cholesterol 227 mg/dL N 30 HDL Cholesterol 30.6 mg/dL N 31 LDL Cholesterol 158 mg/dL N 32 Comp Metabolic Panel 08/21/2015 [facility] Sodium 136 mmol/L N 133-[address] [place], [place] [id number] [phone] Potassium 4.5 mmol/L N 3.5-5.0 Chloride 107 mmol/L N 101-111 Co2 Carbon Dioxide 27 mmol/L N 22-32 Anion Gap 2 mmol/L N 2-11 Glucose 142 mg/dL High 70-100 Blood Urea Nitrogen 12 mg/dL N 6-24 Creatinine 0.86 mg/dL N 0.51-0.95 BUN/Creatinine Ratio 14.0 N 8-20 Calcium 9.0 mg/dL N 8.6-10.3 Total Protein 6.2 g/dL Low 6.4-8.9 Albumin 3.8 g/dL N 3.2-5.2 Globulin 2.4 g/dL N 2-4 Albumin/Globulin Ratio 1.6 N 1-3 Total Bilirubin 0.40 mg/dL N 0.2-1.0 Alkaline Phosphatase 57 U/L N 34-104 Alt 16 U/L N 7-52 Ast 12 U/L Low 13-39 Egfr Non- 70.7 N >60 Egfr 91.0 N >60 33 Laboratory test 06/18/2015 [facility] Hemoglobin A1c 5.9 5-7 finding Laboratory test 10/16/2014 [facility] Hemoglobin A1c 6.1 5-7 finding Lipid Profile 10/13/2014 [facility] Triglycerides 222 mg/dL N 34 (Trig/Chol/HDL) [address] [place] [address] [phone] Cholesterol 196 mg/dL N 35 HDL Cholesterol 33.4 mg/dL N 36 LDL Cholesterol 118 mg/dL N 37 Comp Metabolic Panel 10/13/2014 [facility] Sodium 137 mmol/L N 133-145 [address] [place] [address] [phone] Potassium 4.3 mmol/L N 3.5-5.0 Chloride 103 mmol/L N 101-111 Co2 Carbon Dioxide 29 mmol/L N 22-32 Anion Gap 5 mmol/L N 2-11 Glucose 142 mg/dL High 70-100 Blood Urea Nitrogen 9 mg/dL N 6-24 Creatinine 1.14 mg/dL High 0.51-0.95 BUN/Creatinine Ratio 7.9 Low 8-20 Calcium 9.0 mg/dL N 8.6-10.3 Total Protein 6.4 g/dL N 6.4-8.9 Albumin 3.8 g/dL N 3.2-5.2 Globulin 2.6 g/dL N 2-4 Albumin/Globulin Ratio 1.5 N 1-3 Total Bilirubin 0.40 mg/dL N 0.2-1.0 Alkaline Phosphatase 56 U/L N 34-104 Alt 21 U/L N 7-52 Ast 14 U/L N 13-39 Egfr Non- 51.3 N >60 Egfr 66.0 N >60 38 Urine Culture And 02/27/2014 [facility] Urine Culture (SEE NOTE ) 39 Sensitivities [address] [place] [address] [phone] Ua Routine 02/27/2014 [facility] Ua Specific 1.025 [place] Ua PH 5.0 Ua Color yellow Ua Appera sl turbid Ua WBC small Ua Protein negative Ua Glucose negative Ua Ketones negative Ua Bilirubin negative Ua Urobilinogen negative Ua Nitrite negative Ua Occult Blood 3+ (large) Lipid Profile 02/14/2014 [facility] Triglycerides 129 mg/dL N 40, 41 (Trig/Chol/HDL) [address] [place] [address] [phone] Cholesterol 160 mg/dL N 42 HDL Cholesterol 33.9 mg/dL N 43 LDL Cholesterol 100 mg/dL N 44 Lipid Profile 04/26/2013 [facility] Triglycerides 186 mg/dL 40-200 (Trig/Chol/HDL) [address] [place] [address] [phone] Cholesterol 180 mg/dL Less than 200 HDL Cholesterol 33 mg/dL Low 40-60 45 Cholesterol/HDL Ratio 5.5 Average High 1-4.44 LDL Cholesterol 109.8 High Less Than 100 46 Urine Culture And 02/27/2013 [facility] Urine Culture (SEE NOTE ) 47 Sensitivities [address] [place] [address] [phone] Ua Routine 02/27/2013 [facility] Ua Specific 1.020 [place] Ua PH 5 Ua Color brown Ua Appera clear Ua WBC positive Ua Protein positive Ua Glucose neg Ua Ketones neg Ua Bilirubin neg Ua Urobilinogen neg Ua Nitrite neg Ua Occult Blood positive Ua Routine 02/18/2013 [facility] Ua Specific [place] 1.015 Ua PH 5.0 Ua Color yellow Ua Appera clear Ua WBC small Ua Protein trace Ua Glucose neg Ua Ketones neg Ua Bilirubin small Ua Urobilinogen neg Ua Nitrite neg Ua Occult Blood small Ua W/Microscopic 02/18/2013 [facility] Urine Color Yellow [address] [place] [address] [phone] Urine Appearance Clear Urine Specific [place] 1.018 1.010-1.030 Urine Esterase 1+ Abnormal Negative Urine Nitrate Negative Negative Urine Urobilinogen Negative E.U./dL Negative Urine Protein Negative mg/dL Negative Urine pH 5.5 5-9 Urine Blood 1+ Abnormal Negative Urine Ketones Negative mg/dL Negative Urine Bilirubin Negative Negative Urine Glucose Negative mg/dL Negative Urine WBC 1+ (<10 /hpf) None Seen Urine RBC 1+ (<3 /hpf) None Seen Urine Epithelial Cells 2+ Squamous /hpf None Seen Bacteria Urine 1+ None Seen Crystals Urine Amorphous /lpf None Seen Urine Culture And 02/18/2013 [facility] Urine Culture (SEE NOTE ) [address] [place] [address] [phone] Lipid Profile 10/23/2012 [facility] Triglycerides 167 mg/dL 40-20 (Trig/Chol/HDL) [address] [place] [address] [phone] Cholesterol 156 mg/dL Less than 200 HDL Cholesterol 29 mg/dL Low 40-60 49 Cholesterol/HDL Ratio 5.4 Average High 1-4.44 LDL Cholesterol 93.6 Less Than 100 50 Liver Function 06/29/2012 [facility] Total Protein 5.8 g/dL Low 6.2-8.[address] [place] [address] [phone] Albumin 3.4 g/dL Low 3.6-5.4 Globulin 2.4 g/dL 2-4 Albumin/Globulin Ratio 1.4 1-3 Total Bilirubin 0.3 mg/dL Low 0.4-1.5 Direct Bilirubin 0.1 mg/dL 0.1-0.5 Indirect Bilirubin 0.2 mg/dL Low 0.3-1.0 Alkaline Phosphatase 55 U/L 30-110 Alt 16 U/L 14-54 Ast 15 U/L 12-42 Lipid Profile 06/29/2012 [facility] Triglycerides 76 mg/dL 40 -200 (Trig/Chol/HDL) [address] [place] [address] [phone] Cholesterol 170 mg/dL Less than 200 HDL Cholesterol 31 mg/dL Low 40-60 51 Cholesterol/HDL Ratio 5.5 Average High 1-4.44 LDL Cholesterol 123.8 mg/dL High Less Than 100 52 Laboratory test 06/25/2012 [facility] Affirm (SEE NOTE) [address] [place] [address] Probe [phone] Cytology 06/25/2012 [facility] Cy RUN DATE: [address] 06/26/ <[place] [address] NOTE> [phone] GC/Chlamydia 06/25/2012 [facility] GC/Chlamydia (SEE NOTE) [address] [place], [place] [address] [phone] Liver Function 10/28/2011 [facility] Total Protein 5.8 GM/DL Low 6.2-8. Panel [address] [place] [address] [phone] Albumin 3.4 GM/DL Low 3.6-5.4 Globulin 2.4 GM/DL 2-4 Albumin/Globulin Ratio 1.4 1-3 Bilirubin Total 0.6 mg/dL 0.4-1.5 56 Bilirubin Direct 0.1 mg/dL 0.1-0.5 Indirect Bilirubin 0.5 mg/dL 0.3-1.0 57 Alkaline Phosphatase 50 U/L 30-110 Alt (SGPT) 20 U/L 14-54 Ast (Sgot) 18 U/L 12-42 Lipid Profile 10/28/2011 [facility] Triglyceride 157 mg/dL 40 -200 (Trig/Chol/HDL) [address] [place], [place] [address] [phone] Cholesterol 203 mg/dL High Less Than 200 58 High Density Lipoprotein 28 mg/dL Low 40-60 59 Cholesterol/HDL Ratio 7.25 AVERAGE High 1-4.44 Low Density Lipoprotein 144 mg/dL High Less Than 100 60 Type And Screen 09/25/2011 [facility] Patient Blood O POSITIVE 61 (Pre-Adm) [address] [place] [address] [phone] Antibody Screen NEGATIVE Specimen Discard Date 10/09/11 62 Comp Metabolic Panel 09/25/2011 [facility] Sodium 139 mmol/L 135-[address] [place], [place] [address] [phone] Potassium 4.2 mmol/L 3.5-5.0 Chloride 109 mmol/L 101-111 Co2 (Carbon Dioxide) 27.0 mmol/L 22-32 Anion Gap 3.0 mmol/L 2-11 63 Glucose 92 mg/dL 70-100 BUN 8 mg/dL 6-24 Creatinine 0.9 mg/dL 0.50-1.40 One Over Creatinine 1.11 BUN/Creatinine Ratio 8.9 8-20 Calcium 9.3 mg/dL 8.1-9.9 Total Protein 5.8 GM/DL Low 6.2-8.1 Albumin 3.7 GM/DL 3.6-5.4 Globulin 2.1 GM/DL 2-4 Albumin/Globulin Ratio 1.8 1-3 Bilirubin Total 0.5 mg/dL 0.4-1.5 64 Alkaline Phosphatase 50 U/L 30-110 Alt (SGPT) 19 U/L 14-54 Ast (Sgot) 16 U/L 12-42 eGFR Non- 68.3 > 60 eGFR 87.9 > 60 65 CBC Auto Diff 09/25/2011 [facility] White Blood 6.9 CUMM 4.8- 10.[address] [place] [address] [phone] Red Cell Count 4.31 CUMM 4.2-5.4 Hemoglobin 13.1 g/dL 12.0-16.0 Hematocrit 38 % 35-47 Mean Corpuscular Volume 88 um3 79-97 Mean Corpuscular Hemoglob 31 pg 27-31 Mean Corpuscular HGB Cone 35 g/dL 32-36 Redcell Distribution WDTH 14 % 10.5-15 Platelet Count 239 CUMM 150-450 Mean Platelet Volume 8.4 um3 7.4-10.4 Gran % 47.2 % 38-83 Lymph % 41.9 % 25-47 Mononuclear % 7.2 % 1-9 Eosinophil % 3.1 % 0-6 Basophil % 0.6 % 0-2 Abs Lymphs 2.9 1.0-4.8 Abs Mononuclear 0.5 0-0.8 Absolute Neutrophil Count 3.3 1.5-7.7 Abs Eosinophils 0.2 0-0.6 Abs Basophils 0 0-0.2 Liver Function 09/02/2011 [facility] Total Protein 6.3 GM/DL 6.2-8.[address] [place] [address] [phone] Albumin 3.5 GM/DL Low 3.6-5.4 Globulin 2.8 GM/DL 2-4 Albumin/Globulin Ratio 1.3 1-3 Bilirubin Total 0.6 mg/dL 0.4-1.5 66 Bilirubin Direct 0.1 mg/dL 0.1-0.5 Indirect Bilirubin 0.5 mg/dL 0.3-1.0 67 Alkaline Phosphatase 58 U/L 30-110 Alt (SGPT) 18 U/L 14-54 Ast (Sgot) 16 U/L 12-42 Lipid Profile 09/02/2011 [facility] Triglyceride 157 mg/dL 40 -200 (Trig/Chol/HDL) [address] [place] [address] [phone] Cholesterol 251 mg/dL High Less Than 200 68 High Density Lipoprotein 38 mg/dL Low 40-60 69 Cholesterol/HDL Ratio 6.61 AVERAGE High 1-4.44 Low Density Lipoprotein 182 mg/dL High Less Than 100 70 Laboratory test 09/02/2011 [facility] Potassium 4.2 mmol/L 3.5-5.0 finding [address] [place] [address] [phone] Laboratory test 06/16/2011 [facility] Thyroxine Free 0.76 ng/dL 0.61-1.24 finding [address] [place] [address] [phone] TSH 2.08 MIU/ML 0.34-5.60 1 Because ethnic data is not always readily available, this report includes an eGFR for both -Americans and non- Americans. The National Kidney Disease Education Program (NKDEP) does not endorse the use of the MDRD equation for patients that are not between the ages of 18 and 70, are , have extremes of body size, muscle mass, or nutritional status, or are non- or non-. According to the National Kidney Foundation, irrespective of diagnosis, the stage of the disease is based on the level of kidney function: Stage Description GFR(mL/min/1.73 m(2)) 1 Kidney damage with normal or decreased GFR 90 2 Kidney damage with mild decrease in GFR 60-89 3 Moderate decrease in GFR 30-59 4 Severe decrease in GFR 15-29 5 Kidney failure <15 (or dialysis) 2 It is recognized that currently available assays for the detection of antibodies to HIV-1 and/or HIV-2 may not detect all infected individuals. HIV antibodies may be undetectable in some stages of the infection and in some clinical conditions. The performance of this assay has not been established for populations of infants or children. Assayed by Chemiluminescence Microparticle Immunoassay on the Siemens Advia Centaur CP. Values obtained with different methods or kits cannot be used interchangeably.The diagnostic specificity of the ADVIA Centaur 1/O/2 Enhanced assay in the low risk population was 99.90% (6052/6058) with a 95% confidence interval of 99.78 to 99.96%. 3 Therapeutic target for the treatment of diabetes mellitus patients is <7% HBA1C, and in selective patients <6.0%. Please refer to [place] [employer] diabetic care guidelines for further information. 4 >100 to <200 pg/mL: likely compensated congestive heart failure (CHF) 200 to 400 pg/mL: likely moderate CHF >400 pg/mL: likely moderate to severe CHF 5 [id number] 6 Therapeutic target for the treatment of diabetes mellitus patients is <7% HBA1C, and in selective patients <6.0%. Please refer to [place] [employer] diabetic care guidelines for further information. 7 Desirable: <150 Borderline High: 150-199 High: 200-499 Very High: >500 8 Desirable: <200 Borderline High: 200-239 High: >239 9 Low: <40 Desirable: 40-60 High: >60 10 Desirable: <100 Near Optimal: 100-129 Borderline High: 130-159 High: 160-189 Very High: >189 11 SEE RESULT BELOW Name: TIERRA JUARES : [address]: Emily Carr MD Acct: [id number] Unit: [id number] AGE: 46 Location: [facility] Re08/29/16 SEX: F Status: REG REF SPEC: [id number] RAMONE: 08/29/16-1312 [facility] DR: Emily Carr MD REQ: [id number] RECD: 08/29/16-183 STATUS: SOUT _ ORDERED: IMAGE ANALYSIS, HPV 16/18 GENE COMMENTS: [id number] FINAL DIAGNOSIS Negative for Intraepithelial lesion or Malignancy Shift in shaw suggestive of bacterial vaginosis A. Ectocervical/Endocervical Specimen Adequacy: Satisfactory of evaluation Transformation zone component not identified Patient Information: HPV: Thin Layer Pap Test w/reflex to high risk HPV RNA testing when ASCUS HPV 16/18 Genotype Reflex Actual Specimen Date: 08/29/16 Last Menstrual Date: 08/10/16 Previous Abnormal Pap Smears?:Y If Yes, enter Diagnosis: Loop electrosurgical excision procedure in 2010. Signed (signature on file) VALDO Diallo(ASCP) 08/30 1352 This Pap test was evaluated with the assistance of the Digital KarmaPrep Test Imaging System. Due to cytologic findings at the barrel endshaker adjuster microscope, comprehensive manual rescreening by a Legal Records Clerk may be required. The Pap Smear is a screening test designed to aid in the detection of premalignant and malignant conditions of the uterine cervix. It is not a diagnostic procedure and should not be used as the sole means of detecting cervical cancer. Both false- positive and false- negative reports do occur. Depending on your risk status, a Pap smear should be obtained and evaluated every 1-3 years. END OF REPORT * ML=Testing performed at Main Lab DEPARTMENT OF PATHOLOGY, [address] [place] [address] Kip Rueda M.D. Director [facility] # [id number] 12 Unable to calculate due to low microalbumin 13 Because ethnic data is not always readily available, this report includes an eGFR for both -Americans and non- Americans. The National Kidney Disease Education Program (NKDEP) does not endorse the use of the MDRD equation for patients that are not between the ages of 18 and 70, are , have extremes of body size, muscle mass, or nutritional status, or are non- or non-. According to the National Kidney Foundation, irrespective of diagnosis, the stage of the disease is based on the level of kidney function: Stage Description GFR(mL/min/1.73 m(2)) 1 Kidney damage with normal or decreased GFR 90 2 Kidney damage with mild decrease in GFR 60-89 3 Moderate decrease in GFR 30-59 4 Severe decrease in GFR 15-29 5 Kidney failure <15 (or dialysis) 14 Desirable <150 Borderline high 150-199 High 200-499 Very High >500 15 Desirable <200 Borderline high 200-239 High >239 16 Low <40 Desirable: 40-60 High: >60 17 Desirable: <100 mg/dL Near Optimal: 100-129 mg/dL Borderline High: 130-159 mg/dL High: 160-189 mg/dL Very High: >189 mg/dL 18 Therapeutic target for the treatment of diabetes Mellitus patients is <7% HBA1C, and in selective patients <6.0%.Please refer to [place] [employer] Diabetic care guidelines for further information. 19 Because ethnic data is not always readily available, this report includes an eGFR for both -Americans and non- Americans. The National Kidney Disease Education Program (NKDEP) does not endorse the use of the MDRD equation for patients that are not between the ages of 18 and 70, are , have extremes of body size, muscle mass, or nutritional status, or are non- or non-. According to the National Kidney Foundation, irrespective of diagnosis, the stage of the disease is based on the level of kidney function: Stage Description GFR(mL/min/1.73 m(2)) 1 Kidney damage with normal or decreased GFR 90 2 Kidney damage with mild decrease in GFR 60-89 3 Moderate decrease in GFR 30-59 4 Severe decrease in GFR 15-29 5 Kidney failure <15 (or dialysis) 20 Therapeutic target for the treatment of diabetes Mellitus patients is <7% HBA1C, and in selective patients <6.0%.Please refer to [place] [employer] Diabetic care guidelines for further information. 21 Desirable <150 Borderline high 150-199 High 200-499 Very High >500 22 Desirable <200 Borderline high 200-239 High >239 23 Low <40 Desirable: 40-60 High: >60 24 Desirable: <100 mg/dL Near Optimal: 100-129 mg/dL Borderline High: 130-159 mg/dL High: 160-189 mg/dL Very High: >189 mg/dL 25 Test Performed by: [place] [address] Service Planner: Judd Isaac II, M.D., Ph.D. 26 It is recognized that currently available assays for the detection of antibodies to HIV-1 and/or HIV-2 may not detect all infected individuals. HIV antibodies may be undetectable in some stages of the infection and in some clinical conditions. The performance of this assay has not been established for populations of infants or children. Assayed by Chemiluminescence Microparticle Immunoassay on the Siemens Advia Centaur CP. Values obtained with different methods or kits cannot be used interchangeably.The diagnostic specificity of the ADVIA Centaur 1/O/2 Enhanced assay in the low risk population was 99.90% (6052/6058) with a 95% confidence interval of 99.78 to 99.96%. 27 SEE RESULT BELOW Name: TIERRA JUARES : [address]: Trisha Long MD Acct: [id number] Unit: [id number] AGE: 45 Location: [facility] Re08/27/15 SEX: F Status: REG REF SPEC: [id number] RAMONE: 08/27/15-[address]: Trisha Long MD REQ: [id number] RECD: 08/27/15 STATUS: SOUT _ ORDERED: IMAGE ANALYSIS, HPV/Thin Prep, HPV 16/18 GENE FINAL DIAGNOSIS Negative for Intraepithelial lesion or Malignancy Shift in shaw suggestive of bacterial vaginosis A. Ectocervical/Endocervical Specimen Adequacy: Satisfactory of evaluation Patient Information: HPV: High risk HPV RNA testing regardless of pap results. HPV 16/18 Genotype Reflex Actual Specimen Date: 08/27/15 Previous Abnormal Pap Smears?:Y If Yes, enter Diagnosis: History of HPV, ? SADE, Notes cervix was surgically removed. distorted blunt end, sent scraping Date Time Test Result Flag (u) Normal Range 08/27/15 1312 HPV RNA RFLX GE Negative Negative The high-risk HPV types detected by the assay include: 16, 18, 31, 33, 35, 39, 45, 51, 52, 56, 58, 59, 66, and 68. Signed (signature on file) VALDO Diallo(ASCP) 08/29 1513 This Pap test was evaluated with the assistance of the Element Works Test Imaging System. Due to cytologic findings at the barrel endshaker adjuster microscope, comprehensive manual rescreening by a Legal Records Clerk may be required. The Pap Smear is a screening test designed to aid in the detection of premalignant and malignant conditions of the uterine cervix. It is not a diagnostic procedure and should not be used as the sole means of detecting cervical cancer. Both false- positive and false- negative reports do occur. Depending on your risk status, a Pap smear should be obtained and evaluated every 1-3 years. END OF REPORT * ML=Testing performed at Main Lab DEPARTMENT OF PATHOLOGY, [address] [place] [address] Kip Rueda M.D. Director [facility] # [id number] 28 The high-risk HPV types detected by the assay include: 16, 18, 31, 33, 35, 39, 45, 51, 52, 56, 58, 59, 66, and 68. 29 Desirable <150 Borderline high 150-199 High 200-499 Very High >500 30 Desirable <200 Borderline high 200-239 High >239 31 Low <40 Desirable: 40-60 High: >60 32 Desirable: <100 mg/dL Near Optimal: 100-129 mg/dL Borderline High: 130-159 mg/dL High: 160-189 mg/dL Very High: >189 mg/dL 33 Because ethnic data is not always readily available, this report includes an eGFR for both -Americans and non- Americans. The National Kidney Disease Education Program (NKDEP) does not endorse the use of the MDRD equation for patients that are not between the ages of 18 and 70, are , have extremes of body size, muscle mass, or nutritional status, or are non- or non-. According to the National Kidney Foundation, irrespective of diagnosis, the stage of the disease is based on the level of kidney function: Stage Description GFR(mL/min/1.73 m(2)) 1 Kidney damage with normal or decreased GFR 90 2 Kidney damage with mild decrease in GFR 60-89 3 Moderate decrease in GFR 30-59 4 Severe decrease in GFR 15-29 5 Kidney failure <15 (or dialysis) 34 Desirable <150 Borderline high 150-199 High 200-499 Very High >500 35 Desirable <200 Borderline high 200-239 High >239 36 Low <40 Desirable: 40-60 High: >60 37 Desirable: <100 mg/dL Near Optimal: 100-129 mg/dL Borderline High: 130-159 mg/dL High: 160-189 mg/dL Very High: >189 mg/dL 38 Because ethnic data is not always readily available, this report includes an eGFR for both -Americans and non- Americans. The National Kidney Disease Education Program (NKDEP) does not endorse the use of the MDRD equation for patients that are not between the ages of 18 and 70, are , have extremes of body size, muscle mass, or nutritional status, or are non- or non-. According to the National Kidney Foundation, irrespective of diagnosis, the stage of the disease is based on the level of kidney function: Stage Description GFR(mL/min/1.73 m(2)) 1 Kidney damage with normal or decreased GFR 90 2 Kidney damage with mild decrease in GFR 60-89 3 Moderate decrease in GFR 30-59 4 Severe decrease in GFR 15-29 5 Kidney failure <15 (or dialysis) 39 RUN DATE: 03/01/14 [facility] LAB LIVE PAGE 1 RUN TIME: 0476 [address] [place], [place] [address] Specimen Inquiry Name: TIERRA JUARES : [address]: Trisha Long MD Acct: [id number] Unit: [id number] AGE: 43 Location: [facility] Re02/27/14 SEX: F Status: REG REF SPEC: [id number] RAMONE: 02/27/14-[address]: Trisha Long MD REQ: [id number] RECD: 02/27/14 STATUS: COMP _ SOURCE: URINE SPDESC: ORDERED: Urine Culture QUERIES: Medent Number [id number] Procedure Result Verified Site Urine Culture Final 03/01/14- 1054 ML Organism 1 NORMAL SHAW Ava Count >100,000 (Many) CFU/ML END OF REPORT * ML=Testing performed at Main Lab DEPARTMENT OF PATHOLOGY, [facility] [employer] [place] [address] Kip Rueda M.D. Director [facility] # [id number] 40 FASTING 41 Desirable <150 Borderline high 150-199 High 200-499 Very High >500 42 Desirable <200 Borderline high 200-239 High >239 43 Low <40 Desirable: 40-60 High: >60 44 Desirable <100 Near Optimal 100-129 Borderline high 130-159 High 160-189 Very High >189 45 HDL Interpretation: Undesirable: High Risk: Less than 40 mg/dL Desirable: Low Risk: Greater than 60 mg/dL 46 LDL Interpretation: Low Risk Optimal Level: LDL Less than 100 mg/dL Near or Above Optimal: LDL 100-129 mg/dL Borderline High Risk: LDL 130-159 mg/dL High Risk: LDL 160-189 mg/dL Very High Risk: LDL Greater than 189 mg/dL 47 RUN DATE: 03/01/13 [facility] LIVE PAGE 1 RUN TIME: 952 [facility] [address] [place], [place] [address] Specimen Inquiry Name: TIERRA JUARES : [address]: Trisha Long MD Acct: [id number] Unit: [id number] AGE: 42 Location: [facility] Re02/27/13 SEX: F Status: REG REF SPEC: [id number] RAMONE: 02/27/13-1236 [facility] DR: Trisha Long MD REQ: [id number] RECD: 02/27/13 STATUS: COMP _ SOURCE: URINE SPDESC: ORDERED: Urine Culture QUERIES: Medent Number [id number] Procedure Result Verified Site Urine Culture Final 03/01/13- 951 ML Organism 1 NORMAL SHAW Ava Count 50-75,000 (Many) CFU/ML END OF REPORT * ML=Testing performed at Main Lab DEPARTMENT OF PATHOLOGY, [facility] [employer] [place], [place] [address] Kip Rueda M.D. Director [facility] Permit #[id number] RUN DATE: 02/20/13 [facility] LIVE PAGE 1 RUN TIME: 902 [facility] [employer] [place], [place] [address] Specimen Inquiry Name: TIERAR JUARES : [address]: Trisha Long MD Acct: [id number] Unit: [id number] AGE: 42 Location: [facility] Re02/18/13 SEX: F Status: REG REF SPEC: [id number] RAMONE: 02/18/13-1321 [facility] DR: Trisha Long MD REQ: [id number] RECD: 02/18/13 STATUS: COMP _ SOURCE: URINE SPDESC: ORDERED: Urine Culture Procedure Result Verified Site Urine Culture Final 02/20/13- 09 ML Organism 1 ESCHERICHIA COLI Ava Count 25-50,000 (Moderate) CFU/ML Organism 2 NORMAL SHAW Ava Count 10-25,000 (Moderate) CFU/ML 1. ESCHERICHIA COLI M.I.C. RX --------- ------ Ampicillin 8 S Cefazolin <=4 S Cefepime <=1 S Ceftriaxone <=1 S Ciprofloxacin <=0.25 S Gentamicin <=1 S Imipenem <=0.25 S Levofloxacin <=0.12 S Meropenem <=0.25 S Nitrofurantoin 32 S Tetracycline <=1 S Trimethoprim/Sulfamethoxazole <=20 S Amoxicillin/Clavulanic Acid 4 S Aztreonam <=1 S Contact the Microbiology Department for any additional antibiotic reporting. END OF REPORT * ML=Testing performed at Main Lab DEPARTMENT OF PATHOLOGY, [address] [place] [address] Kip Rueda M.D. Director [facility] Permit #[id number] HDL Interpretation: Undesirable: High Risk: Less than 40 mg/dL Desirable: Low Risk: Greater than 60 mg/dL 50 LDL Interpretation: Low Risk Optimal Level: LDL Less than 100 mg/dL Near or Above Optimal: LDL 100-129 mg/dL Borderline High Risk: LDL 130-159 mg/dL High Risk: LDL 160-189 mg/dL Very High Risk: LDL Greater than 189 mg/dL 51 HDL Interpretation: Undesirable: High Risk: Less than 40 MG/DL Desirable: Low Risk: Greater than 60 MG/DL 52 LDL Interpretation: Low Risk Optimal Level: LDL Less than 100 MG/DL Near or Above Optimal: LDL 100-129 MG/DL Borderline High Risk: LDL 130-159 MG/DL High Risk: LDL 160-189 MG/DL Very High Risk: LDL Greater than 189 MG/DL 53 RUN DATE: 06/26/12 [facility] LAB LIVE PAGE 1 RUN TIME: 83[address] [place], [place] [address] Specimen Inquiry Name: TIERRA JUARES : [address]: Trisha Long MD Acct: [id number] Unit: [id number] AGE: 41 Location: [facility] Re06/25/12 SEX: F Status: REG REF SPEC: [id number] RAMONE: 06/25/12-[address]: Trisha Long MD REQ: [id number] RECD: 06/25/12 STATUS: COMP _ SOURCE: VAGINAL SPDESC: ORDERED: Affirm QUERIES: Medent Number [id number] Procedure Result Verified Site Affirm Vaginal DNA Probe Final 06/26/12- 1058 ML Trichomonas Negative Gardnerella Positive Juanita Negative The presence of G. vaginalis, although suggestive, is not diagnostic for bacterial vaginosis. Results should be interpreted in conjunction with other clinical and laboratory data available. Women with vaginal discharge should be evaluated for risk factors of cervicitis and pelvic inflammatory disease, toxic shock syndrome (S.aureus), and if present, evaluated for organisms not included in this assay such as N. gonorrhoeae, C. trachomatis, Mobiluncus, Mycoplasma and/or Prevotella. Mixed infections may occur. The performance of this test on patient specimens collected during or immediately after antimicrobial therapy is unknown. The presence or absence of Juanita species, G. vaginalis or T. vaginalis cannot be used as a test for therapeutic success or failure. END OF REPORT * ML=Testing performed at Main Lab DEPARTMENT OF PATHOLOGY, [address] [place] [address] Kip Rueda M.D. Director [facility] Permit #[id number] RUN DATE: 06/26/12 [facility] LIVE PAGE 1 RUN TIME: [address] [place] [address] Specimen Inquiry Name: TIERRA JUARES : [address]: Trisha Long MD Acct: [id number] Unit: [id number] AGE: 41 Location: [facility] Re06/25/12 SEX: F Status: REG REF SPEC: [id number] RAMONE: 06/25/12-[address]: Trisha Long MD REQ: [id number] RECD: 06/26/12 STATUS: SOUT _ ORDERED: IMAGE ANALYSIS FINAL DIAGNOSIS Negative for Intraepithelial lesion or Malignancy Shift in shaw suggestive of bacterial vaginosis A. Vaginal Specimen Adequacy: Satisfactory of evaluation Patient Information: HPV: Thin Layer Pap Test w/reflex to high risk HPV DNA testing when ASCUS Actual Specimen Date: 06/25/12 Lesion, grossly demonstrate: N Post Menopausal?: N If Yes, enter Diagnosis: cervix removed, ? dysplasia Signed (signature on file) VALDO Hernandez (ASCP) 06/26 2759 This Pap test was evaluated with the assistance of the Digital KarmaPrep Test Imaging System. Due to cytologic findings at the barrel endshaker adjuster microscope, comprehensive manual rescreening by a Legal Records Clerk may be required. The Pap Smear is a screening test designed to aid in the detection of premalignant and malignant conditions of the uterine cervix. It is not a diagnostic procedure and should not be used as the sole means of detecting cervical cancer. Both false- positive and false- negative reports do occur. Depending on your risk status, a Pap smear shoudl be obtained and evaluated every 1-3 years. END OF REPORT * ML=Testing performed at Main Lab DEPARTMENT OF PATHOLOGY, [facility] [employer] [place], [place] [address] Kip Rueda M.D. Director [facility] Permit #[id number] RUN DATE: 06/28/12 [facility] LIVE PAGE 1 RUN TIME: 1413 [facility] [address] [place], [place] [address] Specimen Inquiry Name: TIERRA JUARES : [address]: Trisha Long MD Acct: [id number] Unit: [id number] AGE: 41 Location: [facility] Re06/25/12 SEX: F Status: REG REF SPEC: [id number] RAMONE: 06/25/[address]: Trisha Long MD REQ: [id number] RECD: 06/25/12 STATUS: COMP _ SOURCE: [facility]: ORDERED: GC/Chlam RNA QUERIES: Medent Number [id number] Procedure Result Verified Site Chlamydia Trachomatis RNA Final 06/28/12- 1412 ML NEGATIVE for Chlamydia trachomatis rRNA GC (N. gonorrhoeae) RNA Final 06/28/12- 1412 ML NEGATIVE for Neisseria gonorrhoeae rRNA A negative result does not preclude the presence of a C. trachomatis or N. gonorrhoeae infection because results are dependent on adequate specimen collection, absence of inhibitors, and sufficient rRNA to be detected. Test results may be affected by improper specimen collection, improper storage, technical error, or specimen mixup. Limitations of the Procedure: The Aptima Combo 2 Assay is not intended for the evaluation of suspected sexual abuse or for other medico-legal indications. For those patients for whom a false positive result may have adverse psychosocial impact, the CDC recommends retesting by a method using an alternate technology. Therapeutic failure or success cannot be determined with the Aptima Combo 2 Assay since nucleic acid may persist following appropriate antimicrobial therapy. Results from the Aptima Combo 2 Assay should be interpreted in conjunction with other laboratory and clinical data available to the clinican. CONTINUED ON NEXT PAGE * ML=Testing performed at Main Lab DEPARTMENT OF PATHOLOGY, [facility] [employer] [place] [address] Kip Rueda M.D. Director [facility] Permit #[id number] RUN DATE: 06/28/12 [facility] LIVE PAGE 2 RUN TIME: [address] [place] [address] Specimen Inquiry Patient: JUARESTIERRA [id number] (Continued) Specimen: [id number] Collected: 06/25/12-1513 Received: 06/25/12-1918 (Continued) Procedure Result Verified Site GC (N. gonorrhoeae) RNA Final (continued) 06/28/12- 1412 Performance characteristics for detecting C. trachomatis and N. gonorrhoeae are derived from high prevalence populations. Positive results in low prevalence populations should be interpreted carefully with the understanding that the likelihood of a false positive may be higher than a true positive. END OF REPORT * ML=Testing performed at Main Lab DEPARTMENT OF PATHOLOGY, [address] [place] [address] Kip Rueda M.D. Director [facility] Permit #[id number] 56 A metabolite of Naproxen, O-desmethylnaproxen, has been shown to interfere with the Jenestellaik-Hipolito method for measuring total bilirubin. Samples from patients who have taken Naproxen have shown spurious elevation in total bilirubin levels. 57 Please note updated reference range, effective 11/25/09 58 CHOLESTEROL INTERPRETATION: Desirable: Less than 200 MG/DL Borderline-High Risk: 200-239 MG/DL High-Risk: 240 MG/DL and over 59 HDL INTERPRETATION: Undesirable: High Risk: Less than 40 MG/DL Desirable: Low Risk: Greater than 60 MG/DL 60 LDL INTERPRETATION: Low Risk Optimal Level: LDL Less than 100 MG/DL Near or Above Optimal: LDL 100-129 MG/DL Borderline High Risk: LDL 130-159 MG/DL High Risk: LDL 160-189 MG/DL Very High Risk: LDL Greater than 189 MG/DL 61 SDS 5-24-12 62 PREADMISSION TESTING SAMPLES FOR BLOOD BANK WILL BE HELD FOR 14 DAYS FROM THE DATE OF COLLECTION *IF* THE FOLLOWING CRITERIA ARE MET: 1) THE PATIENT HAS *NOT* BEEN IN THE LAST 3 MONTHS. 2) THE PATIENT HAS *NOT* BEEN TRANSFUSED IN THE LAST 3 MONTHS. PREADMISSION TESTING SAMPLES WILL *NOT* BE HELD FOR 14 DAYS FROM PATIENTS WHO IN THE LAST 3 MONTHS: 1) HAVE BEEN 2) HAVE BEEN TRANSFUSED THESE PATIENTS *MUST* BE COLLECTED WITHIN 3 DAYS OF THE SURGERY DATE. 63 Anion gap measurement may be of limited value in the presence of any alkalosis, especially in a combined acid base disorder. . 64 A metabolite of Naproxen, O-desmethylnaproxen, has been shown to interfere with the Jendrassik-[place] method for measuring total bilirubin. Samples from patients who have taken Naproxen have shown spurious elevation in total bilirubin levels. 65 Because ethnic data is not always readily available, this report includes an eGFR for both -Americans and non- Americans. The National Kidney Disease Education Program (NKDEP) does not endorse the use of the MDRD equation for patients that are not between the ages of 18 and 70, are , have extremes of body size, muscle mass, or nutritional status, or are non- or non-. According to the National Kidney Foundation, irrespective of diagnosis, the stage of the disease is based on the level of kidney function: Stage Description GFR(mL/min/1.73 m(2)) 1 Kidney damage with normal or decreased GFR 90 2 Kidney damage with mild decrease in GFR 60-89 3 Moderate decrease in GFR 30-59 4 Severe decrease in GFR 15-29 5 Kidney failure <15 (or dialysis) 66 A metabolite of Naproxen, O-desmethylnaproxen, has been shown to interfere with the Jendrassik-[place] method for measuring total bilirubin. Samples from patients who have taken Naproxen have shown spurious elevation in total bilirubin levels. 67 Please note updated reference range, effective 11/25/09 68 CHOLESTEROL INTERPRETATION: Desirable: Less than 200 MG/DL Borderline-High Risk: 200-239 MG/DL High-Risk: 240 MG/DL and over 69 HDL INTERPRETATION: Undesirable: High Risk: Less than 40 MG/DL Desirable: Low Risk: Greater than 60 MG/DL 70 LDL INTERPRETATION: Low Risk Optimal Level: LDL Less than 100 MG/DL Near or Above Optimal: LDL 100-129 MG/DL Borderline High Risk: LDL 130-159 MG/DL High Risk: LDL 160-189 MG/DL Very High Risk: LDL Greater than 189 MG/DL Procedures Date Code Description Status 01/28/2018 [id number] Diabetic Retinal Eye Exam Completed 07/24/2017 [id number] Mammogram Completed 12/20/2016 17228 Sleep Study Unattended,HRT Rate,Oxygen Sat,Resp Completed Effort/Airflow 09/12/2016 [id number] Diabetic Retinal Eye Exam Completed 09/08/2016 [id number] Mammogram Completed 09/02/2015 [id number] Mammogram Completed 06/24/2014 [id number] Mammogram Completed 06/19/2014 37331 Carpal Tunnel Release Completed 03/19/2014 80614 Rad Exam; Hand Comp Completed 03/19/2014 10757 Rad Exam; Hand Comp Completed 08/19/2012 [id number] Mammogram Completed 08/18/2011 [id number] Mammogram Completed Encounters Type Date Location Provider Dx Diagnosis Office Visit 04/16/2018 [facility] Nu Suazo, G47.33 Obstructive sleep 1:30p [facility], RN, PATHOLOGY MANAGER-BC apnea (adult) Shake Feeder (pediatric) F17.210 Nicotine dependence, cigarettes, uncomplicated K13.79 Other lesions of oral mucosa E66.9 Obesity, unspecified Z68.41 Body mass index (BMI) 40.0-44.9, adult Office Visit 01/16/2018 1:00p [facility] Internal Emily Z23 Encounter for Medicine - Santo Carr immunization [facility] Z00.00 Encntr for general adult medical exam w/o abnormal findings E11.9 Type 2 diabetes mellitus without complications R60.0 Localized edema N95.9 Unspecified menopausal and perimenopausal disorder Office Visit 10/22/2017 Pulmonology And Nu G47.33 Obstructive sleep 10:30a [facility] Suazo RN, apnea (adult) [facility] PATHOLOGY MANAGER-BC (pediatric) F17.210 Nicotine dependence, cigarettes, uncomplicated 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 mellitus without [place] complications E78.2 Mixed hyperlipidemia Z23 Encounter for immunization F17.210 Nicotine dependence, cigarettes, uncomplicated N64.4 Mastodynia Office Visit 07/16/2017 Pulmonology And Nu G47.33 Obstructive sleep 10:30a [facility] Suazo RN, apnea (adult) [facility] PATHOLOGY MANAGER-BC (pediatric) F17.210 Nicotine dependence, cigarettes, uncomplicated Z68.41 Body mass index (BMI) 40.0-44.9, adult Office Visit 04/16/2017 Pulmonology And Nu G47.33 Obstructive sleep 10:30a [facility] Suazo RN, apnea (adult) [facility] PATHOLOGY MANAGER-BC (pediatric) F17.210 Nicotine dependence, cigarettes, uncomplicated E66.9 Obesity, unspecified Z68.41 Body mass index (BMI) 40.0-44.9, adult Office Visit 02/14/2017 Pulmonology And Nu G47.33 Obstructive sleep 11:30a [facility] Su[facility] RN, apnea (adult) [facility] PATHOLOGY MANAGER-BC (pediatric) Z68.41 Body mass index (BMI) 40.0-44.9, adult F17.210 Nicotine dependence, cigarettes, uncomplicated E66.9 Obesity, unspecified Office Visit 01/29/2017 11:50a [facility] Internal Emily E11.9 Type 2 diabetes Kyra Carr M.D. mellitus without [place] complications B35.3 Tinea pedis F17.210 Nicotine dependence, cigarettes, uncomplicated Z23 Encounter for immunization E66.9 Obesity, unspecified Office Visit 01/03/2017 Pulmonology And Nu G47.33 Obstructive sleep 11:45a [facility] Su[facility] RN, apnea (adult) [facility] PATHOLOGY MANAGER-BC (pediatric) R09.02 Hypoxemia E66.9 Obesity, unspecified Z68.39 Body mass index (BMI) 39.0-39.9, adult F17.210 Nicotine dependence, cigarettes, uncomplicated Office Visit 12/18/2016 11:30a [facility] Deandra Henry, R06.83 [facility] R06.81 Apnea, not elsewhere classified R40.0 Somnolence G47.8 Other sleep disorders Office Visit 10/31/2016 9:10a [facility] Emily A87.9 Viral meningitis , Kyra Carr M.D. unspecified [place] G47.00 Insomnia, unspecified F17.210 Nicotine dependence, cigarettes, uncomplicated Office Visit 08/29/2016 11:10a [facility] Emily Z00.01 Encounter for Kyra Carr M.D. general adult [facility] medical exam w abnormal findings E11.9 Type 2 diabetes mellitus without complications Z12.31 Encntr screen mammogram for malignant neoplasm of breast F17.210 Nicotine dependence, cigarettes, uncomplicated E66.9 Obesity, unspecified Z23 Encounter for immunization M79.672 Pain in left foot R09.89 Oth symptoms and signs involving the circ and resp systems E78.5 Hyperlipidemia, unspecified Z12.4 Encounter for screening for malignant neoplasm of cervix Office Visit 01/27/2016 10:50a [facility] Internal Emily Carr R73.01 Impaired Medicine - M.D. fasting glucose [place] F17.210 Nicotine dependence, cigarettes, uncomplicated F43.21 Adjustment disorder with depressed mood Z23 Encounter for immunization Office Visit 12/21/2015 11:50a [facility] Emily E78.5 HyperlipidemiaKyra M.D. unspecified [place] R60.9 Edema, unspecified R73.01 Impaired fasting glucose F17.210 Nicotine dependence, cigarettes, uncomplicated Office Visit 10/15/2015 11:40a [facility] Trisha E78.5 HyperlipidemiaKyra M.D. unspecified [place] R73.01 Impaired fasting glucose Z11.59 Encounter for screening for other viral diseases Office Visit 06/18/2015 10:00a [facility] Trisha Long Z23 Encounter for Medicine - M.DTangela immunization [place] F43.21 Adjustment disorder with depressed mood G47.00 Insomnia, unspecified E78.5 Hyperlipidemia, unspecified R73.01 Impaired fasting glucose R73.01 Impaired fasting glucose Office Visit 01/15/2015 11:40a [facility] Trisha Long, 682.6 Cellulitis & Medicine - M.D. Abscess Leg [place]od Except Foot 790.21 Impaired Fasting Glucose 477.9 Rhinitis Allergic Cause Unspec Office Visit 11/12/2014 11:45a Orthopedic Sammie Selby, 354.0 Carpal Tunnel Services Of M.D. Syndrome C.M.A. Office Visit 11/10/2014 2:40p [facility] Trisha Long, 790.21 Impaired Medicine - M.D. Fasting Glucose Mcleod 782.3 Edema Office Visit 10/16/2014 2:40p [facility] Trisha Long, 790.21 Impaired Medicine - M.D. Fasting Glucose Mcleod 272.9 Lipoid Metabolism Disorders Unspec 782.3 Edema Office Visit 10/08/2014 10:00a Jane Selby, 354.0 Carpal Tunnel Services Of M.D. Syndrome C.M.A. Office Visit 09/15/2014 12:40p [facility] Trisha Long, 729.81 Swelling Of Medicine - M.D. Limb [place]od 782.3 Edema Office Visit 06/12/2014 2:40p [facility] Trisha Long, 309.0 Adjustment Medicine - M.D. Disorder With [place]od Depression 272.9 Lipoid Metabolism Disorders Unspec V76.19 Screening Breast Exam Malignant Neoplasms Other Office Visit 05/28/2014 11:45a Jane Selby, 354.0 Carpal Tunnel Services Of M.D. Syndrome C.M.A. Office Visit 03/19/2014 8:30a Jane Selby 354.0 Carpal Tunnel Services Of M.D. Syndrome C.M.A. Office Visit 03/18/2014 8:40a [facility] Trisha Long, 842.01 Sprains & Medicine - M.D. Strains Wrist & [place]od Hand Carpal (Joint) Office Visit 03/05/2014 9:20a [facility] Internal Trisha Long, 842.01 Sprains & Medicine - M.D. Strains Wrist & [place]od Hand Carpal (Joint) Office Visit 02/27/2014 2:40p [facility] Internal Trisha Long, 788.1 Dysuria Medicine - M.D. [place]cleod 842.01 Sprains & Strains Wrist & Hand Carpal (Joint) 844.9 Sprains & Strains Knee & Leg Unspec 272.9 Lipoid Metabolism Disorders Unspec V04.81 Need For Prophylactic Vaccination & Inoculation/Influenza Office Visit 02/06/2014 4:40p [facility] Trisha Long, 842.01 Sprains & Strains Medicine - M.D. Wrist & Hand [place]od Carpal (Joint) Office Visit 11/25/2013 4:00p [facility] Trisha Long, 214.1 Lipoma Other Skin Medicine - M.D. And Subcutaneous M[place]od Tissue 272.9 Lipoid Metabolism Disorders Unspec Office Visit 10/20/2013 4:00p [facility] Will Knowles 784.0 Headache Kyra Scott M.D. [place] Office Visit 08/26/2013 2:40p [facility] Internal Trisha Long, 847.2 Sprains & Medicine - M.D. Strains Lumbar Mcleod 309.0 Adjustment Disorder With Depression 272.9 Lipoid Metabolism Disorders Unspec Office Visit 05/26/2013 4:00p [facility] Trisha Long, 309.0 Adjustment Medicine - M.D. Disorder With [place] Depression 272.9 Lipoid Metabolism Disorders Unspec Office Visit 04/25/2013 1:40p [facility] Trisha Long, 309.0 Adjustment Medicine - M.D. Disorder With [place] Depression 272.9 Lipoid Metabolism Disorders Unspec Office Visit 02/27/2013 11:40a [facility] Trisha Long, 599.0 UTI Urinary Medicine - M.D. Tract Infection [place] Site Not Spec Office Visit 02/18/2013 1:00p [facility] Trisha Long, 788.1 Dysuria Medicine - M.D. [place]od 309.0 Adjustment Disorder With Depression v04.81 Need For Prophylactic Vaccination & Inoculation/Influenza Office Visit 01/16/2013 1:40p [facility] Trisha Long, 309.0 Adjustment Medicine - M.D. Disorder With [place] Depression 477.0 Rhinitis Allergic Due To Pollen 272.9 Lipoid Metabolism Disorders Unspec Office Visit 12/27/2012 2:40p [facility] Trisha Long, 461.8 Sinusitis Acute Medicine - M.D. Other Mcleod 309.0 Adjustment Disorder With Depression 272.9 Lipoid Metabolism Disorders Unspec Office Visit 09/17/2012 2:00p [facility] Trisha 726.32 Epicondylitis Kyra Long M.D. Lateral Mcleod 841.8 Sprains & Strains Elbow & Forearm Other Spec Sites 840.9 Sprains & Strains Shoulder & Upper Arm Unspec 309.0 Adjustment Disorder With Depression 272.9 Lipoid Metabolism Disorders Unspec Office Visit 06/25/2012 3:00p [facility] Trisha Long, V76.19 Screening Breast Medicine - M.D. Exam Malignant [place] Neoplasms Other V76.2 Screening Malignant Neoplasm Cervix 272.9 Lipoid Metabolism Disorders Unspec V72.31 Routine Energy Conservation Representative Examination Office Visit 05/09/2012 4:00p [facility] Trisha Long, 272.9 Lipoid Metabolism Medicine - M.D. Disorders Unspec Mcleod 309.0 Adjustment Disorder With Depression Office Visit 12/05/2011 4:40p [facility] Trisha Long, 272.9 Lipoid Metabolism Medicine - M.D. Disorders Unspec Mcleod 309.0 Adjustment Disorder With Depression Office Visit 07/18/2011 3:00p [facility] Trisha Long, 461.9 Sinusitis Acute Medicine - M.D. Unspec Mcleod 278.00 Obesity Unspec 786.03 Apnea 272.9 Lipoid Metabolism Disorders Unspec Office Visit 06/16/2011 2:20p [facility] Trisha Long, 309.0 Adjustment Medicine - M.D. Disorder With [place] Depression 272.9 Lipoid Metabolism Disorders Unspec 278.00 Obesity Unspec 782.3 Edema Plan of Treatment Future Appointment(s):05/17/2018 10:00 am - Dale Ryan LCSW at [facility] - [address]05/20/2018 10:30 am - Emily Carr M.D. at [facility] - [address]18/11/2019 1:30 pm - Nu Suazo DNP, RN, PATHOLOGY MANAGER-BC at [facility]04/22/2018 - Emily Carr M.D.Z01.818 Encounter for other preprocedural examinationComments:undergoing elective surgery of right tonsillectomy for tonsillar growth , has no ACS , is able to perform 4 METS , low risk for major adverse events , advised patient to proceed with her upcoming procedure , and to avoid NSAID like medications at least a week prior to surgery .CC to Dr. CastellanoD37.05 Neoplasm of uncertain behavior of pharynxComments:plan per Dr. CastellanoF32.89 Other specified depressive faupnqoiH18.33 Obstructive sleep apnea (adult) (pediatric)Comments:stable with CPAPE78.2 Mixed hyperlipidemiaComments:stable with xuropxJ54.9 Hypothyroidism, unspecifiedComments:stable with ppdmqxcvelaC70.210 Nicotine dependence, cigarettes, uncomplicatedComments:please stop smoking !Z11.4 Encounter for screening for human immunodeficiency virus [HiE11.9 Type 2 diabetes mellitus without complicationsComments:continue [id number] Body mass index (BMI) 40.0-44.9, adult
--- OUTSIDE RECORDS SUMMARY | 2018-05-10 17:49 | XMS REPORT | Continuity of Care Document ---
:1970 External Reference #:[id number] Author Name Heather Florian Care Team Providers Name Role Phone Emily Carr MD Primary Care Physician Unavailable Payers Type Date Identification Numbers Payment Provider Subscriber Effective: 2014 Policy Number: [id number] Medicare Tierra Christy PayID: [id number] [address] [place] [address] Effective: 2014 Policy Number: [id number] Medicaid Tierra Christy Group Name: 1 1 [address] PayID: [id number] [place] [address] Effective: 2011 Policy Number: [employer] Medicaid Tierra Christy [id number] Expires: 2014 PayID: [id number] [address] [address] [place] [address] Advance Directives Description No Information Available Problems Date Description Provider Status Onset: 07/18/2011 Obesity Trisha Long M.D. Active Onset: 12/21/2015 Hyperlipidemia Emily Carr M.D. Active Onset: 12/21/2015 Tobacco user Emily Carr M.D. Active Onset: 08/29/2016 Type 2 diabetes mellitus Emily Carr M.D. 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 Inactive Inactive: 08/29/2016 Onset: 01/24/2016 Impaired fasting glycaemia Emily Carr M.D. Inactive Inactive: 08/29/2016 Onset: 07/18/2011 Edema Trisha Long M.D. Inactive Inactive: 08/29/2016 Onset: 07/18/2011 Adjustment disorder with depressed Trihsa Long M.D. Resolved mood Resolved: 10/31/2016 Family [...] F32.89 Emily (SR) 12HR bs tablet by Bruno, brittany M.DTangela daily X 7 days then every 12 hours Levothyroxine 01/21 Active Tablets 50mcg 90tab 1 by mouth Emily Sodium s every day Santo Carr Metformin HCL 08/29 Active Tablets 500mg 120ta 2 by mouth E11.9 Emily /2017 bs in in the Carr, morning M.DTangela [...] Active Strips 180un test 1 R73.01 Emily Blue /2015 its times a Bruno, day or as [...] Emily Continuing s directed Mehdi Carr - Gaye.Srinivasan 06/12 Chantix Starting 03/23 Hx Tablets 0.5mg [...] 150mg 2tabs 1 tab by Z12.4 Trisha /2016 mouth once Charlie Long and Santo 10/14 repeat in 1 week Venlafaxine HCL 06/18 Hx Caps ER 75mg 90cap 1 by mouth F43.21 Trisha ER 24HR s every day Charlie Long M.D. 01/26 Keflex 01/15 Hx Capsules 250mg 30cap 1 tab by 682.6 Trisha s mouth Charlie Long every 8 M.Srinivasan Glucophage XR 01/15 Hx Tablets ER 1000mg 60tab 1 by mouth Trisha 24HR s 2x per day Charlie Long M.D. 12/20 Fluticasone 01/15 Hx Suspension 50mcg/Act 1unit 2 sprays 477.9 Trisha Simmons s each Charlie Longtril Santo 06/18 Metformin HCL ER 11/12 Hx Tablets ER [...] 12.5mg 30tab 1 by mouth 729.81 Trisha yadav s every day Charlie Long M.D. 01/15 [...] ER 75mg 30cap 1 po qd 309.0 Trihsa ER 24HR Charlie Mccord M.D. 08/26 Venlafaxine [...] HCL 12/04 Hx Tablets 100mg 45tab 1 05/08 tab 309.0 Trisha /2012 s po qd Ethan - M.D. 05/09 Pravachol 09/04 Hx Tablets 80mg 30tab 1 tab po Trisha s everyday Ethan - M.D. 05/14 Pravastatin 06/20 Hx Tablets 40mg 90tab take 1 Trisha s tablet by Ethan, - mouth once M.D. 09/06 Furosemide 06/16 Hx Tablets 20mg 10tab 1/2 tab po 272.9 Trisha /2012 s every day Ethan, - for 5 M.D. 06/16 days. september contine for 10 days if swelling is not gone Sertraline HCL 06/16 Hx Tablets 100mg 30tab 1 po qd Trisha /2012 s Ethan - M.D. 05/09 Furosemide Hx Tablets 20mg 60tab 1 po qam Trisha / s Ethan - M.D. 12/04 Sertraline HCL 00 Hx Tablets 100mg 90tab 1 po qd Unknown /0000 s - 06/16 Sertraline 00 Hx Tablets 100 30tab 1 po qd Jey, / s Artis - DO 06/16 Pravastatin Hx Tablets 100mg 30tab 1 tablet Unknown Sodium /0000 s once daily - at bedtime 07/17 Furosemide Hx Tablets 20mg 30tab take 1 Trisha / s tablet Ethan, - every M.D. 05/09 Bupropion HCL SR Hx Tablets 200mg 30tab 1 by mouth Ethan, /0000 s qd Charlie Rico MD 06/12 Tramadol HCL Hx Tablets 50mg 50tab four times Unknown /0000 s a day as - needed 03/18 Trazodone HCL Hx Tablets 50mg 30tab 1-2 tablet Emily /0000 s at bedtime Charlie Carr as needed M.DTangela 08/22 Folic Acid Hx [...] CPT Code Status Date Vaccine Lot # [id number] Given 01/16/2018 Influenza Virus Vaccine, Quadrivalent, Split, [id number] Preservative Free 54567 Given 07/18/2017 Pneumonia Vaccine [id number] 94264 Given 01/29/2017 Influenza Virus Vaccine, Quadrivalent, Split, [id number] Preservative Free 56303 Given 08/29/2016 Tdap - Tetanus/Diptheria/Acellular Pertussis [id number] 09537 Given 08/29/2016 Pneumococcal Conjugate Vaccine 13 Valent For [id number] Intramuscular Use 81591 Given 01/27/2016 Influenza Virus Vaccine, Quadrivalent, Split, [id number] Preservative Free 54817 Given 06/18/2015 Influenza Virus Vaccine, Quadrivalent, Split, [id number] Preservative Free 17201 Given 02/27/2014 Flu Vaccine Split Virus Preservative Free For [id number] Indiv 3Yr Older 16239 Given 02/18/2013 Flu Vaccine Split Virus Preservative Free For [id number] Indiv 3Yr Older Vital Signs Date Vital [...] Date Facility Test Result H/L Range Note Laboratory test 04/09/2018 [facility] B-Type Natriuretic 14 pg/ mL <=[address] [place] [address] [phone] TSH (Thyroid Stim Horm) 3.47 mcIU/mL N 0.34-5.60 Laboratory test 04/09/2018 [facility] Hemoglobin A1c 5.9 % High 4.0-5.[address] (Glyco HGB) [place] [address] [phone] Laboratory test 02/04/2018 [facility] T3 Free 3.80 N 2.5-3.[address] pg/[place] [address] [phone] Free T4 (Free Thyroxine) 0.83 ng/dL N 0.61-1.12 TSH (Thyroid Stim Horm) 3.83 mcIU/mL N 0.34-5.60 Laboratory test 01/16/2018 [facility] B-Type Natriuretic 17 pg/ mL [address] Peptide BNP [place], [place] [address] [phone] TSH (Thyroid Stim Horm) 8.41 mcIU/mL High 0.34-5.60 Free T4 (Free Thyroxine) 0.59 ng/dL Low 0.61-1.12 T3 Free 3.40 pg/mL N 2.5-3.9 Thyroperoxidase AB 2008.75 IU/mL High <9 Urine Microalbumin 01/16/2018 [facility] Ur Microalbumin 73.9 [address] (mg/L) [place], [place] [id number] [phone] Urine Creatinine 135.34 mg/dL Urine Microalbumin/Creatinine 54.6 High <31 Ua Routine 01/16/2018 [facility] Ua Specific Howell 1.020 Ua PH 5 Ua Color yellow Ua Appera cloudy Ua WBC ++ Ua Protein trace Ua Glucose norm Ua Ketones - Ua Bilirubin - Ua Urobilinogen norm Ua Nitrite + Ua Occult Blood 50 Laboratory test 10/29/2017 [facility] Hemoglobin A1c 6.3 % High 4.0-5.6 [address] [place] [address] [phone] Lipid Profile 07/19/2017 [facility] Triglycerides 204 5 (Trig/Chol/HDL) [address] mg/dL [place], [place] [address] [phone] Cholesterol 148 mg/dL 6 HDL Cholesterol 34.4 mg/dL 7 LDL Cholesterol 73 mg/dL 8 Laboratory test 07/18/2017 [facility] Hemoglobin A1c 6.6 5-7 finding Laboratory test 01/29/2017 [facility] Hemoglobin A1c 6.0 5-7 finding Laboratory test 08/29/2016 [facility] Cytology SEE RESULT [address] BELOW [place], [place] [address] [phone] Urine Microalbumin 08/29/2016 [facility] Urine Creatinine 92.71 mg/dL N Random [address] [place] [address] [phone] Ur Microalbumin (mg/L) < 15.0 mg/L N Urine Microalbumin/Creatinine TNP ug/mg N <31 10 Basic Metabolic Panel 08/26/2016 [facility] Sodium 135 mmol/L N 133-145 [address] [place] [address] [phone] Potassium 4.4 mmol/L N 3.5-5.0 Chloride 106 mmol/L N 101-111 Co2 Carbon Dioxide 27 mmol/L N 22-32 Anion Gap 2 mmol/L N 2-11 Glucose 123 mg/dL High 70-100 Blood Urea Nitrogen 13 mg/dL N 6-24 Creatinine 0.92 mg/dL N 0.51-0.95 BUN/Creatinine Ratio 14.1 N 8-20 Calcium 8.7 mg/dL N 8.6-10.3 Egfr Non- 65.2 N >60 Egfr 83.8 N >60 11 Lipid Profile 08/26/2016 [facility] Triglycerides 164 mg/dL N 12 (Trig/Chol/HDL) [address] [place] [address] [phone] Cholesterol 191 mg/dL N 13 HDL Cholesterol 31.2 mg/dL N 14 LDL Cholesterol 127 mg/dL N 15 Laboratory test 08/26/2016 [facility] Hemoglobin A1c 6.4 % High Less than 16 finding 101 [facility] (Glyco HGB) 6.0 [place] [address] [phone] CBC Auto Diff 08/26/2016 [facility] White Blood 7.2 N 3.5- 10.8 [address] [facility] Count 10^3/[place] [address] [phone] Red Blood Count 5.35 10^6/uL N 4.0-5.4 [...] % 0.1 N Comp Metabolic Panel 01/21/2016 [facility] Sodium 139 mmol/L N 133-145 [address] [place] [address] [phone] Potassium 4.1 mmol/L N 3.5-5.0 Chloride 107 [...] 72.7 N >60 Egfr 93.5 N >60 17 Laboratory 01/21/2016 [facility] Hemoglobin 6.1 % High Less than 6.0 18 test finding [address] A1c ([place] [address] HGB) [phone] Laboratory 12/04/2015 [facility] HIV 1&2 AB Nonreactive N Nonreactive 19 test finding [address] [place] [address] Referred [phone] Herpes 12/04/2015 [facility] Herpes Negative N Negative Simplex Type [address] Simplex 1&2 [place] [address] Virus I IgG [phone] AB Herpes Simplex Virus II IgG AB Positive N Negative 20 Lipid Profile 12/04/2015 [facility] Triglycerides 133 mg/dL N 21 (Trig/Chol/HDL) [address] [place] [address] [phone] Cholesterol 157 mg/dL N 22 HDL Cholesterol 28.8 mg/dL N 23 LDL Cholesterol 102 mg/dL N 24 Laboratory test 08/27/2015 [facility] Cytology SEE RESULT BELOW [address] [place] [address] [phone] HPV Rna Ww/Reflex Genotype Negative N Negative 26 Lipid Profile 08/21/2015 [facility] Triglycerides 193 mg/dL N 27 (Trig/Chol/HDL) [address] [place] [address] [phone] Cholesterol 227 mg/dL N 28 HDL Cholesterol 30.6 mg/dL N 29 LDL Cholesterol 158 mg/dL N 30 Comp Metabolic Panel 08/21/2015 [facility] Sodium 136 mmol/L N 133-[address] [place] [address] [phone] Potassium 4.5 mmol/L N 3.5-5.0 Chloride 107 [...] 70.7 N >60 Egfr 91.0 N >60 31 Laboratory test 06/18/2015 [facility] Hemoglobin A1c 5.9 5-7 finding Laboratory test 10/16/2014 [facility] Hemoglobin A1c 6.1 5-7 finding Lipid Profile 10/13/2014 [facility] Triglycerides 222 mg/dL N 32 (Trig/Chol/HDL) [address] [place] [address] [phone] Cholesterol 196 mg/dL N 33 HDL Cholesterol 33.4 mg/dL N 34 LDL Cholesterol 118 mg/dL N 35 Comp Metabolic Panel 10/13/2014 [facility] Sodium 137 mmol/L N 133-145 [address] [place] [address] [phone] Potassium 4.3 mmol/L N 3.5-5.0 Chloride 103 [...] 51.3 N >60 Egfr 66.0 N >60 36 Urine Culture And 02/27/2014 [facility] Urine Culture (SEE NOTE ) 37 Sensitivities [address] [place] [address] [phone] Ua Routine 02/27/2014 [facility] Ua Specific 1.025 Howell Ua PH 5.0 Ua Color yellow Ua Appera sl turbid Ua WBC small Ua Protein negative Ua Glucose negative Ua Ketones negative Ua Bilirubin negative Ua Urobilinogen negative Ua Nitrite negative Ua Occult Blood 3+ (large) Lipid Profile 02/14/2014 [facility] Triglycerides 129 mg/dL N 38, 39 (Trig/Chol/HDL) [address] [place], [place] [address] [phone] Cholesterol 160 mg/dL N 40 HDL Cholesterol 33.9 mg/dL N 41 LDL Cholesterol 100 mg/dL N 42 Lipid Profile 04/26/2013 [facility] Triglycerides 186 mg/dL 40-200 (Trig/Chol/HDL) [address] [place], [place] [address] [phone] Cholesterol 180 mg/dL Less than 200 HDL Cholesterol 33 mg/dL Low 40-60 43 Cholesterol/HDL Ratio 5.5 Average High 1-4.44 LDL Cholesterol 109.8 High Less Than 100 44 Urine Culture And 02/27/2013 [facility] Urine Culture (SEE NOTE ) 45 Sensitivities [address] [place] [address] [phone] Ua Routine 02/27/2013 [facility] Ua Specific 1.020 Howell Ua PH 5 Ua Color brown Ua Appera clear Ua WBC positive Ua Protein positive Ua Glucose neg Ua Ketones neg Ua Bilirubin neg Ua Urobilinogen neg Ua Nitrite neg Ua Occult Blood positive Ua Routine 02/18/2013 [facility] Ua Specific Howell 1.015 Ua PH 5.0 Ua Color yellow Ua Appera clear Ua WBC small Ua Protein trace Ua Glucose neg Ua Ketones neg Ua Bilirubin small Ua Urobilinogen neg Ua Nitrite neg Ua Occult Blood small Ua W/Microscopic 02/18/2013 [facility] Urine Color Yellow [address] [place] [address] [phone] Urine Appearance Clear Urine Specific Howell 1.018 1.010-1.030 Urine Esterase 1+ Abnormal Negative [...] /lpf None Seen Urine Culture And 02/18/2013 [facility] Urine Culture (SEE NOTE ) 46 Sensitivities [address] [place] [address] [phone] Lipid Profile 10/23/2012 [facility] Triglycerides 167 mg/dL 40-20 (Trig/Chol/HDL) [address] [facility] 0 [place] [address] [phone] Cholesterol 156 mg/dL Less than 200 HDL Cholesterol 29 mg/dL Low 40-60 47 Cholesterol/HDL Ratio 5.4 Average High 1-4.44 LDL Cholesterol 93.6 Less Than 100 48 Lipid Profile 06/29/2012 [facility] Triglycerides 76 mg/dL 40 -200 (Trig/Chol/HDL) [address] [place] [address] [phone] Cholesterol 170 mg/dL Less than 200 HDL Cholesterol 31 mg/dL Low 40-60 49 Cholesterol/HDL Ratio 5.5 Average High 1-4.44 LDL Cholesterol 123.8 mg/dL High Less Than 100 50 Liver Function 06/29/2012 [facility] Total Protein 5.8 g/dL Low 6.2-8.[address] [place], [place] [address] [phone] Albumin 3.4 g/dL Low 3.6-5.4 Globulin 2.4 g/dL 2-4 Albumin/Globulin Ratio 1.4 1-3 Total Bilirubin 0.3 mg/dL Low 0.4-1.5 Direct Bilirubin 0.1 mg/dL 0.1-0.5 Indirect Bilirubin 0.2 mg/dL Low 0.3-1.0 Alkaline Phosphatase 55 U/L 30-110 Alt 16 U/L 14-54 Ast 15 U/L 12-42 Laboratory test 06/25/2012 [facility] Affirm Vaginal Dna (SEE NOTE) [address] Probe [place], [place] [address] [phone] Cytology 06/25/2012 [facility] Cy RUN DATE: [address] 06/26/ [place] [address] <SEE NOTE> [phone] GC/Chlamydia 06/25/2012 [facility] GC/Chlamydia Rna (SEE NOTE) 53 Amplified Rna [address] [place] [address] [phone] Lipid Profile 10/28/2011 [facility] Triglyceride 157 mg/dL 40 -20 (Trig/Chol/HDL) [address] 0 [place] [address] [phone] Cholesterol 203 mg/dL High Less Than 200 54 High Density Lipoprotein 28 mg/dL Low 40-60 55 Cholesterol/HDL Ratio 7.25 AVERAGE High 1-4.44 Low Density Lipoprotein 144 mg/dL High Less Than 100 56 Liver Function 10/28/2011 [facility] Total Protein 5.8 GM/DL Low 6.2-8.[address] [place] [address] [phone] Albumin 3.4 GM/DL Low 3.6-5.4 Globulin 2.4 GM/DL 2-4 Albumin/Globulin Ratio 1.4 1-3 Bilirubin Total 0.6 mg/dL 0.4-1.5 57 Bilirubin Direct 0.1 mg/dL 0.1-0.5 Indirect Bilirubin 0.5 mg/dL 0.3-1.0 58 Alkaline Phosphatase 50 U/L 30-110 Alt (SGPT) 20 U/L 14-54 Ast (Sgot) 18 U/L 12-42 Comp Metabolic Panel 09/25/2011 [facility] Sodium 139 mmol/L 135-[address] [place] [address] [phone] Potassium 4.2 mmol/L 3.5-5.0 Chloride 109 mmol/L 101-111 Co2 (Carbon Dioxide) 27.0 mmol/L 22-32 Anion Gap 3.0 mmol/L 2-11 60 Glucose 92 mg/dL 70-100 BUN 8 mg/dL 6-24 Creatinine 0.9 mg/dL 0.50-1.40 One Over Creatinine 1.11 BUN/Creatinine Ratio 8.9 8-20 Calcium 9.3 mg/dL 8.1-9.9 Total Protein 5.8 GM/DL Low 6.2-8.1 Albumin 3.7 GM/DL 3.6-5.4 Globulin 2.1 GM/DL 2-4 Albumin/Globulin Ratio 1.8 1-3 Bilirubin Total 0.5 mg/dL 0.4-1.5 61 Alkaline Phosphatase 50 U/L 30-110 Alt (SGPT) 19 U/L 14-54 Ast (Sgot) 16 U/L 12-42 eGFR Non- 68.3 > 60 eGFR 87.9 > 60 62 Type And Screen 09/25/2011 [facility] Patient Blood O POSITIVE (Pre-Adm) [address] [place] [address] [phone] Antibody Screen NEGATIVE Specimen Discard Date 10/09/11 63 CBC Auto Diff 09/25/2011 [facility] White Blood 6.9 CUMM 4.8- 10.[address] [place] [address] [phone] Red Cell Count 4.31 CUMM 4.2-5.4 Hemoglobin [...] Abs Basophils 0 0-0.2 Liver Function 09/02/2011 [facility] Total Protein 6.3 GM/DL 6.2-8.[address] [place] [address] [phone] Albumin 3.5 GM/DL Low 3.6-5.4 Globulin 2.8 GM/DL 2-4 Albumin/Globulin Ratio 1.3 1-3 Bilirubin Total 0.6 mg/dL 0.4-1.5 64 Bilirubin Direct 0.1 mg/dL 0.1-0.5 Indirect Bilirubin 0.5 mg/dL 0.3-1.0 65 Alkaline Phosphatase 58 U/L 30-110 Alt (SGPT) 18 U/L 14-54 Ast (Sgot) 16 U/L 12-42 Lipid Profile 09/02/2011 [facility] Triglyceride 157 mg/dL 40 -200 (Trig/Chol/HDL) [address] [place] [address] [phone] Cholesterol 251 mg/dL High Less Than 200 66 High Density Lipoprotein 38 mg/dL Low 40-60 67 Cholesterol/HDL Ratio 6.61 AVERAGE High 1-4.44 Low Density Lipoprotein 182 mg/dL High Less Than 100 68 Laboratory test 09/02/2011 [facility] Potassium 4.2 mmol/L 3.5-5.[address] [place] [address] [phone] Laboratory test 06/16/2011 [facility] Thyroxine Free 0.76 ng/dL 0.61-1.[address] [place] [address] [phone] TSH 2.08 MIU/ML 0.34-5.60 1 Therapeutic target for the treatment of diabetes mellitus patients is <7% HBA1C, and in selective patients <6.0%. Please refer to [employer] diabetic care guidelines for further information. 2 >100 to <200 pg/mL: likely compensated congestive heart failure (CHF) 200 to 400 pg/mL: likely moderate CHF >400 pg/mL: likely moderate to severe CHF 3 [id number] 4 Therapeutic target for the treatment of diabetes mellitus patients is <7% HBA1C, and in selective patients <6.0%. Please refer to [employer] diabetic care guidelines for further information. 5 Desirable: <150 Borderline High: 150-199 High: 200-499 Very High: >500 6 Desirable: <200 Borderline High: 200-239 High: >239 7 Low: <40 Desirable: 40-60 High: >60 8 Desirable: <100 Near Optimal: 100-129 Borderline High: 130-159 High: 160-189 Very High: >189 9 SEE RESULT BELOW Name: TIERRA JUARES : [address]: Emily Carr MD Acct: [id number] Unit: [id number] AGE: 46 Location: [facility] Re08/29/16 SEX: F Status: REG REF SPEC: [id number] RAMONE: 08/29/16-1312 [facility] DR: Emily Carr MD REQ: [id number] RECD: 08/29/16183 STATUS: SOUT _ ORDERED: IMAGE ANALYSIS, HPV 16/18 GENE COMMENTS: [id number] FINAL DIAGNOSIS Negative for Intraepithelial lesion or [...] was evaluated with the assistance of the [employer] System. Due to cytologic findings at the hand router operator microscope, comprehensive manual rescreening by a Respite Worker may be required. The Pap Smear is [...] performed at Main Lab DEPARTMENT OF PATHOLOGY, [address], [place], [place] [address] Kip Rueda M.D. Director [facility] # [id number] 10 Unable to calculate due to low microalbumin 11 Because ethnic data is not always readily [...] 15-29 5 Kidney failure <15 (or dialysis) 12 Desirable <150 Borderline high 150-199 High 200-499 Very High >500 13 Desirable <200 Borderline high 200-239 High >239 14 Low <40 Desirable: 40-60 High: >60 15 Desirable: <100 mg/dL Near Optimal: 100-129 mg/dL Borderline High: 130-159 mg/dL High: 160-189 mg/dL Very High: >189 mg/dL 16 Therapeutic target for the treatment of diabetes Mellitus patients is <7% HBA1C, and in selective patients <6.0%.Please refer to [employer] Diabetic care guidelines for further information. 17 Because ethnic data is not always readily [...] 15-29 5 Kidney failure <15 (or dialysis) 18 Therapeutic target for the treatment of diabetes Mellitus patients is <7% HBA1C, and in selective patients <6.0%.Please refer to [employer] Diabetic care guidelines for further information. 19 It is recognized that currently available assays [...] 95% confidence interval of 99.78 to 99.96%. 20 Test Performed by: [place] [address] [employer]: Judd Isaac II, M.D., Ph.D. 21 Desirable <150 Borderline high 150-199 High 200-499 Very High >500 22 Desirable <200 Borderline high 200-239 High >239 23 Low <40 Desirable: 40-60 High: >60 24 Desirable: <100 mg/dL Near Optimal: 100-129 mg/dL Borderline High: 130-159 mg/dL High: 160-189 mg/dL Very High: >189 mg/dL 25 SEE RESULT BELOW Name: TIERRA JUARES : [address]: Trisha Long MD Acct: [id number] Unit: [id number] AGE: 45 Location: [facility] Re08/27/15 SEX: F Status: REG REF SPEC: [id number] RAMONE: 08/27/15-1312 [facility] DR: Trisha Long MD REQ: [id number] RECD: 08/27/15 STATUS: SOUT _ ORDERED: IMAGE [...] was evaluated with the assistance of the [employer] Test Imaging System. Due to cytologic findings at the hand router operator microscope, comprehensive manual rescreening by a Respite Worker may be required. The Pap Smear is [...] performed at Main Lab DEPARTMENT OF PATHOLOGY, [address] [place] [address] Kip Rueda M.D. Director [facility] # [id number] 26 The high-risk HPV types detected by the assay include: 16, 18, 31, 33, 35, 39, 45, 51, 52, 56, 58, 59, 66, and 68. 27 Desirable <150 Borderline high 150-199 High 200-499 Very High >500 28 Desirable <200 Borderline high 200-239 High >239 29 Low <40 Desirable: 40-60 High: >60 30 Desirable: <100 mg/dL Near Optimal: 100-129 mg/dL Borderline High: 130-159 mg/dL High: 160-189 mg/dL Very High: >189 mg/dL 31 Because ethnic data is not always readily [...] 15-29 5 Kidney failure <15 (or dialysis) 32 Desirable <150 Borderline high 150-199 High 200-499 Very High >500 33 Desirable <200 Borderline high 200-239 High >239 34 Low <40 Desirable: 40-60 High: >60 35 Desirable: <100 mg/dL Near Optimal: 100-129 mg/dL Borderline High: 130-159 mg/dL High: 160-189 mg/dL Very High: >189 mg/dL 36 Because ethnic data is not always readily [...] 15-29 5 Kidney failure <15 (or dialysis) 37 RUN DATE: 03/01/14 [facility] LAB LIVE PAGE 1 RUN TIME: 1055 [address] [place], [place] [address] Specimen Inquiry Name: TIERRA JUARES : [address]: Trisha Long MD Acct: [id number] Unit: [id number] AGE: 43 Location: [facility] Re02/27/14 SEX: F Status: REG REF SPEC: [id number] RAMONE: 02/27/14-[address]: Trisha Long MD REQ: [id number] RECD: 02/27/14 STATUS: COMP _ SOURCE: URINE SPDESC: ORDERED: Urine Culture QUERIES: [employer] Number [id number] Procedure Result Verified Site Urine Culture Final 03/01/14- 1054 ML Organism 1 NORMAL [place]AW [place] Count >100,000 (Many) CFU/ML END OF REPORT * ML=Testing performed at Main Lab DEPARTMENT OF PATHOLOGY, [facility] [place] [address] Kip Rueda M.D. Director [facility] # [id number] 38 FASTING 39 Desirable <150 Borderline high 150-199 High 200-499 Very High >500 40 Desirable <200 Borderline high 200-239 High >239 41 Low <40 Desirable: 40-60 High: >60 42 Desirable <100 Near Optimal 100-129 Borderline high 130-159 High 160-189 Very High >189 43 HDL Interpretation: Undesirable: High Risk: Less than 40 mg/dL Desirable: Low Risk: Greater than 60 mg/dL 44 LDL Interpretation: Low Risk Optimal Level: LDL Less than 100 mg/dL Near or Above Optimal: LDL 100-129 mg/dL Borderline High Risk: LDL 130-159 mg/dL High Risk: LDL 160-189 mg/dL Very High Risk: LDL Greater than 189 mg/dL 45 RUN DATE: 03/01/13 [facility] LAB LIVE PAGE 1 RUN TIME: [address] [place] [address] Specimen Inquiry Name: TIERRA JUARES : [address]: Trisha Long MD Acct: [id number] Unit: [id number] AGE: 42 Location: [facility] Re02/27/13 SEX: F Status: REG REF SPEC: [id number] RAMONE: 02/27/13-1236 [facility] DR: Trisha Long MD REQ: [id number] RECD: 02/27/13 STATUS: COMP _ SOURCE: URINE SPDESC: ORDERED: Urine Culture QUERIES: [employer] Number [id number] Procedure Result Verified Site Urine Culture Final 03/01/13- 951 ML Organism 1 NORMAL [place] Count 50-75,000 (Many) CFU/ML END OF REPORT * ML=Testing performed at Main Lab DEPARTMENT OF PATHOLOGY, [address] [place] [address] Kip Rueda M.D. Director [facility] Permit #[id number] 46 RUN DATE: 02/20/13 [facility] LAB LIVE PAGE 1 RUN TIME: [address] [place] [address] Specimen Inquiry Name: TIERRA JUARES : [address]: Trisha Long MD Acct: [id number] Unit: [id number] AGE: 42 Location: [facility] Re02/18/13 SEX: F Status: REG REF SPEC: [id number] RAMONE: 02/18/131 [facility] DR: Trisha Long MD REQ: [id number] RECD: 02/18/13 STATUS: COMP _ SOURCE: URINE SPDESC: ORDERED: Urine Culture Procedure Result Verified Site Urine Culture Final 02/20/13- 09 ML Organism 1 ESCHERICHIA COLI [place] Count 25-50,000 (Moderate) CFU/ML Organism 2 NORMAL SHAW [place] Count 10-25,000 (Moderate) CFU/ML 1. ESCHERICHIA COLI [...] performed at Main Lab DEPARTMENT OF PATHOLOGY, [address] [place] [address] Kip Rueda M.D. Director [facility] Permit #[id number] HDL Interpretation: Undesirable: High Risk: Less than 40 mg/dL Desirable: Low Risk: Greater than 60 mg/dL 48 LDL Interpretation: Low Risk Optimal Level: LDL Less than 100 mg/dL Near or Above Optimal: LDL 100-129 mg/dL Borderline High Risk: LDL 130-159 mg/dL High Risk: LDL 160-189 mg/dL Very High Risk: LDL Greater than 189 mg/dL 49 HDL Interpretation: Undesirable: High Risk: Less than 40 MG/DL Desirable: Low Risk: Greater than 60 MG/DL 50 LDL Interpretation: Low Risk Optimal Level: LDL Less than 100 MG/DL Near or Above Optimal: LDL 100-129 MG/DL Borderline High Risk: LDL 130-159 MG/DL High Risk: LDL 160-189 MG/DL Very High Risk: LDL Greater than 189 MG/DL 51 RUN DATE: 06/26/12 [facility] LAB LIVE PAGE 1 RUN TIME: [address] [place], [place] [address] Specimen Inquiry Name: TIERRA JUARES : [address]: Trisha Long MD Acct: [id number] Unit: [id number] AGE: 41 Location: [facility] Re06/25/12 SEX: F Status: REG REF SPEC: [id number] RAMONE: 06/25/12 [facility] DR: Trisha Long MD REQ: [id number] RECD: 06/25/12 STATUS: COMP _ SOURCE: TABATHA SPDESC: ORDERED: Affirm QUERIES: Medent Number [id number] Procedure Result Verified Site Affirm Vaginal DNA [...] performed at Main Lab DEPARTMENT OF PATHOLOGY, [facility] [place], [place] [address] Kip Rueda M.D. Director [facility] Permit #[id number] RUN DATE: 06/26/12 [facility] LAB LIVE PAGE 1 RUN TIME: 1842 [facility] [place], [place] [address] Specimen Inquiry Name: TIERRA JUARES : [address]: Trisha Long MD Acct: [id number] Unit: [id number] AGE: 41 Location: [facility] Re06/25/12 SEX: F Status: REG REF SPEC: [id number] RAMONE: 06/25/12-[address]: Trisha Long MD REQ: [id number] RECD: 06/26/12 STATUS: SOUT _ ORDERED: IMAGE [...] (signature on file) VALDO Hernandez (ASCP) 06/26 1223 This Pap test was evaluated with the assistance of the ThinPrep Test Imaging System. Due to cytologic findings at the hand router operator microscope, comprehensive manual rescreening by a Respite Worker may be required. The Pap Smear is [...] performed at Main Lab DEPARTMENT OF PATHOLOGY, [facility] [place], [place] [address] Kip Rueda M.D. Director [facility] Permit #[id number] RUN DATE: 06/28/12 [facility] LAB LIVE PAGE 1 RUN TIME: 1413 [facility] [place], [place] [address] Specimen Inquiry Name: TIERRA JUARES : [address]: Trisha Long MD Acct: [id number] Unit: [id number] AGE: 41 Location: [facility] Re06/25/12 SEX: F Status: REG REF SPEC: [id number] RAMONE: 06/25/12 [facility] DR: Trisha Long MD REQ: [id number] RECD: 06/25/12 STATUS: COMP _ [facility]: GC/Chlam RNA QUERIES: Medent Number [id number] Procedure Result Verified Site Chlamydia Trachomatis RNA [...] result may have adverse psychosocial impact, the [facility] recommends retesting by a method using an [...] performed at Main Lab DEPARTMENT OF PATHOLOGY, [facility] [place], [place] [address] Kip Rueda M.D. Director [facility] Permit #[id number] RUN DATE: 06/28/12 [facility] LAB LIVE PAGE 2 RUN TIME: 141 [facility] [place], [place] [address] Specimen Inquiry Patient: TIERRA JUARES [id number] (Continued) Specimen: [id number] Collected: 06/25/12 Received: 06/25/12-1918 (Continued) Procedure Result Verified Site [...] performed at Main Lab DEPARTMENT OF PATHOLOGY, [address] [place] [address] Kip Rueda M.D. Director [facility] Permit #[id number] 54 CHOLESTEROL INTERPRETATION: Desirable: Less than 200 MG/DL Borderline-High Risk: 200-239 MG/DL High-Risk: 240 MG/DL and over 55 HDL INTERPRETATION: Undesirable: High Risk: Less than 40 MG/DL Desirable: Low Risk: Greater than 60 MG/DL 56 LDL INTERPRETATION: Low Risk Optimal Level: LDL Less than 100 MG/DL Near or Above Optimal: LDL 100-129 MG/DL Borderline High Risk: LDL 130-159 MG/DL High Risk: LDL 160-189 MG/DL Very High Risk: LDL Greater than 189 MG/DL 57 A metabolite of Naproxen, O-desmethylnaproxen, has been shown to interfere with the Jessaik-Hoopeston method for measuring total bilirubin. Samples from patients who have taken Naproxen have shown spurious elevation in total bilirubin levels. 58 Please note updated reference range, effective 11/25/09 59 SDS 5-24-12 60 Anion gap measurement may be of limited value in the presence of any alkalosis, especially in a combined acid base disorder. . 61 A metabolite of Naproxen, O-desmethylnaproxen, has been shown to interfere with the Jendrassik-Hipolito method for measuring total bilirubin. Samples from patients who have taken Naproxen have shown spurious elevation in total bilirubin levels. 62 Because ethnic data is not always readily [...] 15-29 5 Kidney failure <15 (or dialysis) 63 PREADMISSION TESTING SAMPLES FOR BLOOD BANK WILL [...] WITHIN 3 DAYS OF THE SURGERY DATE. 64 A metabolite of Naproxen, O-desmethylnaproxen, has been shown to interfere with the Jendrassik-Hoopeston method for measuring total bilirubin. Samples from patients who have taken Naproxen have shown spurious elevation in total bilirubin levels. 65 Please note updated reference range, effective 11/25/09 66 CHOLESTEROL INTERPRETATION: Desirable: Less than 200 MG/DL Borderline-High Risk: 200-239 MG/DL High-Risk: 240 MG/DL and over 67 HDL INTERPRETATION: Undesirable: High Risk: Less than 40 MG/DL Desirable: Low Risk: Greater than 60 MG/DL 68 LDL INTERPRETATION: Low Risk Optimal Level: LDL Less than 100 MG/DL Near or Above Optimal: LDL 100-129 MG/DL Borderline High Risk: LDL 130-159 MG/DL High Risk: LDL 160-189 MG/DL Very High Risk: LDL Greater than 189 MG/DL Procedures Date Code Description Status 01/28/2018 [id number] Diabetic Retinal Eye Exam Completed 07/24/2017 [id number] Mammogram Completed 12/20/2016 72196 Sleep Study Unattended,HRT Rate,Oxygen Sat,Resp Completed Effort/Airflow 09/12/2016 [id number] Diabetic Retinal Eye Exam Completed 09/08/2016 [id number] Mammogram Completed 09/02/2015 [id number] Mammogram Completed 06/24/2014 [id number] Mammogram Completed 06/19/2014 80620 Carpal Tunnel Release Completed 03/19/2014 58196 Rad Exam; Hand Comp Completed 03/19/2014 07430 Rad Exam; Hand Comp Completed 08/19/2012 [id number] Mammogram Completed 08/18/2011 [id number] Mammogram Completed Encounters Type Date Location Provider Dx Diagnosis Office Visit 04/16/2018 Pulmonology And Nu Suazo, G47.33 Obstructive sleep 1:30p [facility]IE [facility], DAMARIS- apnea (adult) [facility] (pediatric) F17.210 Nicotine dependence, cigarettes, uncomplicated K13.79 Other lesions of oral mucosa E66.9 Obesity, unspecified Z68.41 Body mass index (BMI) 40.0-44.9, adult Office Visit 01/16/2018 1:00p [facility] Internal Emily Z23 Encounter for Medicine - Santo Carr [facility] Z00.00 Encntr for general adult medical exam w/o abnormal findings E11.9 Type 2 diabetes mellitus without complications R60.0 Localized edema N95.9 Unspecified menopausal and perimenopausal disorder Office Visit 10/22/2017 Pulmonology And Nu G47.33 Obstructive sleep 10:30a [facility] TOMMY Suazo RN, apnea (adult) [facility] (pediatric) F17.210 Nicotine dependence, cigarettes, uncomplicated 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 mellitus without [place] complications E78.2 Mixed hyperlipidemia Z23 Encounter for immunization F17.210 Nicotine dependence, cigarettes, uncomplicated N64.4 Mastodynia Office Visit 07/16/2017 Pulmonology And Nu G47.33 Obstructive sleep 10:30a [facility] TOMMY Suazo RN, apnea (adult) [facility] (pediatric) F17.210 Nicotine dependence, cigarettes, uncomplicated Z68.41 Body mass index (BMI) 40.0-44.9, adult Office Visit 04/16/2017 Pulmonology And Nu G47.33 Obstructive sleep 10:30a [facility] TOMMY Suazo RN, apnea (adult) [facility] (pediatric) F17.210 Nicotine dependence, cigarettes, uncomplicated E66.9 Obesity, unspecified Z68.41 Body mass index (BMI) 40.0-44.9, adult Office Visit 02/14/2017 Pulmonology And Nu G47.33 Obstructive sleep 11:30a [facility] TOMMY Suazo RN, apnea (adult) [facility] (pediatric) Z68.41 Body mass index (BMI) 40.0-44.9, adult F17.210 Nicotine dependence, cigarettes, uncomplicated E66.9 Obesity, unspecified Office Visit 01/29/2017 11:50a [facility] Internal Emily E11.9 Type 2 diabetes Kyra Carr M.D. mellitus without [place] complications B35.3 Tinea pedis F17.210 Nicotine dependence, cigarettes, uncomplicated Z23 Encounter for immunization E66.9 Obesity, unspecified Office Visit 01/03/2017 Pulmonology And Nu G47.33 Obstructive sleep 11:45a [facility] TOMMY Suazo RN, apnea (adult) [facility] (pediatric) R09.02 Hypoxemia E66.9 Obesity, unspecified Z68.39 Body mass index (BMI) 39.0-39.9, adult F17.210 Nicotine dependence, cigarettes, uncomplicated Office Visit 12/18/2016 11:30a Pulmonology And Sleep Deandra Henry, R06.83 [facility] R06.81 Apnea, not elsewhere classified R40.0 Somnolence G47.8 Other sleep disorders Office Visit 10/31/2016 9:10a [facility] Internal Emily A87.9 Viral meningitis , Kyra Carr M.D. unspecified [place] G47.00 Insomnia, unspecified F17.210 Nicotine dependence, cigarettes, uncomplicated Office Visit 08/29/2016 11:10a [facility] Internal Emily Z00.01 Encounter for Kyra Carr M.D. general adult [facility] medical exam w abnormal findings E11.9 [...] neoplasm of cervix Office Visit 01/27/2016 10:50a [facility] Internal Emily Carr R73.01 Impaired Medicine - M.D. fasting glucose [place] F17.210 Nicotine dependence, cigarettes, uncomplicated F43.21 Adjustment disorder with depressed mood Z23 Encounter for immunization Office Visit 12/21/2015 11:50a [facility] Internal Emily E78.5 Hyperlipidemia, Kyra Carr M.D. unspecified [place] R60.9 Edema, unspecified R73.01 Impaired fasting glucose F17.210 Nicotine dependence, cigarettes, uncomplicated Office Visit 10/15/2015 11:40a [facility] Internal Trisha E78.5 HyperlipidemiaKyra M.D. unspecified [place] R73.01 Impaired fasting glucose Z11.59 Encounter for screening for other viral diseases Office Visit 06/18/2015 10:00a [facility] Internal Trisha Long Z23 Encounter for Medicine - M.D. immunization [place] F43.21 Adjustment disorder with depressed mood G47.00 Insomnia, unspecified E78.5 Hyperlipidemia, unspecified R73.01 Impaired fasting glucose R73.01 Impaired fasting glucose Office Visit 01/15/2015 11:40a [facility] Internal Trisha Long, 682.6 Cellulitis & Medicine - M.D. Abscess Leg [place] Except Foot 790.21 Impaired Fasting Glucose 477.9 Rhinitis Allergic Cause Unspec Office Visit 11/12/2014 11:45a Orthopedic Sammie Selby, 354.0 Carpal Tunnel Services Of M.D. Syndrome C.M.A. Office Visit 11/10/2014 2:40p [facility] Internal Trisha Long, 790.21 Impaired Medicine - M.D. Fasting Glucose [place] 782.3 Edema Office Visit 10/16/2014 2:40p [facility] Internal Trisha Long, 790.21 Impaired Medicine - M.D. Fasting Glucose [place] 272.9 Lipoid Metabolism Disorders Unspec 782.3 Edema Office Visit 10/08/2014 10:00a Jane Selby, 354.0 Carpal Tunnel Services Of M.D. Syndrome C.M.A. Office Visit 09/15/2014 12:40p [facility] Internal Trisha Long, 729.81 Swelling Of Medicine - M.D. Limb [place] 782.3 Edema Office Visit 06/12/2014 2:40p [facility] Internal Trisha Long, 309.0 Adjustment Medicine - M.D. 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 Syndrome C.M.A. Office Visit 03/19/2014 8:30a Orthopedic Sammie Selby 354.0 Carpal Tunnel Services Of M.D. Syndrome C.M.A. Office Visit 03/18/2014 8:40a [facility] Internal Trisha Long, 842.01 Sprains & Medicine - M.D. Strains Wrist & [place] Hand Carpal (Joint) Office Visit 03/05/2014 9:20a [facility] Internal Trisha Long, 842.01 Sprains & Medicine - M.D. Strains Wrist & [place] Hand Carpal (Joint) Office Visit 02/27/2014 2:40p [facility] Internal Trisha Long, 788.1 Dysuria Medicine - M.D. [place] 842.01 Sprains & Strains Wrist & Hand Carpal (Joint) 844.9 Sprains & Strains Knee & Leg Unspec 272.9 Lipoid Metabolism Disorders Unspec V04.81 Need For Prophylactic Vaccination & Inoculation/Influenza Office Visit 02/06/2014 4:40p [facility] Internal Trisha Long, 842.01 Sprains & Strains Medicine - M.D. Wrist & Hand [place] Carpal (Joint) Office Visit 11/25/2013 4:00p [facility] Internal Trisha Long, 214.1 Lipoma Other Skin Medicine - M.D. And Subcutaneous [place] Tissue 272.9 Lipoid Metabolism Disorders Unspec Office Visit 10/20/2013 4:00p [facility] Internal Will Knowles 784.0 Headache Kyra Scott M.D. [place] Office Visit 08/26/2013 2:40p [facility] Internal Trisha Long, 847.2 Sprains & Medicine - M.D. Strains Lumbar [place] 309.0 Adjustment Disorder With Depression 272.9 Lipoid Metabolism Disorders Unspec Office Visit 05/26/2013 4:00p [facility] Internal Trisha Long, 309.0 Adjustment Medicine - M.D. Disorder With [place] Depression 272.9 Lipoid Metabolism Disorders Unspec Office Visit 04/25/2013 1:40p [facility] Internal Trisha Long, 309.0 Adjustment Medicine - M.D. Disorder With [place] Depression 272.9 Lipoid Metabolism Disorders Unspec Office Visit 02/27/2013 11:40a [facility] Internal Trisha Long, 599.0 UTI Urinary Medicine - M.D. Tract Infection [place] Site Not Spec Office Visit 02/18/2013 1:00p [facility] Internal Trisha Long, 788.1 Dysuria Medicine - M.D. [place] 309.0 Adjustment Disorder With Depression v04.81 Need For Prophylactic Vaccination & Inoculation/Influenza Office Visit 01/16/2013 1:40p [facility] Internal Trisha Long, 309.0 Adjustment Medicine - M.D. Disorder With [place] Depression 477.0 Rhinitis Allergic Due To Pollen 272.9 Lipoid Metabolism Disorders Unspec Office Visit 12/27/2012 2:40p [facility] Internal Trisha Long, 461.8 Sinusitis Acute Medicine - M.D. Other [place] 309.0 Adjustment Disorder With Depression 272.9 Lipoid Metabolism Disorders Unspec Office Visit 09/17/2012 2:00p [facility] Internal Trisha 726.32 Epicondylitis Kyra Long M.D. Lateral [place] 841.8 Sprains & Strains Elbow & Forearm Other Spec Sites 840.9 Sprains & Strains Shoulder & Upper Arm Unspec 309.0 Adjustment Disorder With Depression 272.9 Lipoid Metabolism Disorders Unspec Office Visit 06/25/2012 3:00p [facility] Internal Trisha Long, V76.19 Screening Breast Medicine - M.D. Exam Malignant [place] Neoplasms Other V76.2 Screening Malignant Neoplasm Cervix 272.9 Lipoid Metabolism Disorders Unspec V72.31 Routine Principal Statistical Scientist Examination Office Visit 05/09/2012 4:00p [facility] Internal Trisha Long, 272.9 Lipoid Metabolism Medicine - M.D. Disorders Unspec [place] 309.0 Adjustment Disorder With Depression Office Visit 12/05/2011 4:40p [facility] Internal Trisha Long, 272.9 Lipoid Metabolism Medicine - M.D. Disorders Unspec [place] 309.0 Adjustment Disorder With Depression Office Visit 07/18/2011 3:00p [facility] Internal Trisha Long, 461.9 Sinusitis Acute Medicine - M.D. Unspec [place] 278.00 Obesity Unspec 786.03 Apnea 272.9 Lipoid Metabolism Disorders Unspec Office Visit 06/16/2011 2:20p [facility] Internal Trisha oLng, 309.0 Adjustment Medicine - M.D. Disorder With [place] Depression 272.9 Lipoid Metabolism Disorders Unspec 278.00 Obesity Unspec 782.3 Edema Plan of Treatment Future Appointment(s):05/20/2018 10:30 am - Emily Carr M.D. at [facility] Internal Medicine - [address]06/04/2019 8:30 am - Dale Ryan LCSW at [facility] Internal Medicine - [address]/15/2018 1:30 pm - Nu Suazo DNP, RN, SLOT HOST- BC at [facility]04/22/2018 - Emily Carr M.D.Z01.818 Encounter for other preprocedural examinationComments:undergoing elective surgery of right tonsillectomy for tonsillar growth ,D37.05 Neoplasm of uncertain behavior of pharynxComments:plan per Dr. CastellanoE11.9 Type 2 diabetes mellitus without tovbltxtidlmtU74.89 Other specified depressive risncznpZ61.33 Obstructive sleep apnea (adult) (pediatric)Comments:stable with CPAPE78.2 Mixed hyperlipidemiaComments:stable with xsndznY13.9 Hypothyroidism, unspecifiedComments:stable withF17.210 Nicotine dependence, cigarettes, uncomplicatedComments:please stop smoking !Z11.4 Encounter for screening for human immunodeficiency virus [HiZ68.41 Body mass index (BMI) 40.0-44.9, adult
--- OUTSIDE RECORDS SUMMARY | 2018-05-10 17:50 | XMS REPORT | Continuity of Care Document ---
:1970 External Reference #:[id number] Author Name Erika Maier Care Team Providers Name Role Phone Emily Carr MD Primary Care Physician Unavailable Payers Type Date Identification Numbers Payment Provider Subscriber Effective: 2014 Policy Number: [id number] Medicare Tierra Christy PayID: [id number] [address] [place] [address] Effective: 2014 Policy Number: [id number] Medicaid Tierra Christy Group Name: 1 1 [address] PayID: [id number] [place] [address] Effective: 2011 Policy Number: [employer] Medicaid Tierra Christy [id number] Expires: 2014 PayID: [id number] [address] [address] [place] [address] Advance Directives Description No Information Available Problems Date Description Provider Status Onset: 07/18/2011 Obesity Trisha Long M.D. Active Onset: 12/21/2015 Hyperlipidemia Emily Carr M.D. Active Onset: 12/21/2015 Tobacco user Emily Carr M.D. Active Onset: 08/29/2016 Type 2 diabetes mellitus Emily Carr M.D. 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 Inactive Inactive: 08/29/2016 Onset: 01/24/2016 Impaired fasting glycaemia Emily Carr M.D. Inactive Inactive: 08/29/2016 Onset: 07/18/2011 Edema Trisha Long M.D. Inactive Inactive: 08/29/2016 Onset: 07/18/2011 Adjustment disorder with depressed Trsiha Long M.D. Resolved mood Resolved: 10/31/2016 Family [...] 50mcg 90tab 1 by mouth Emily Sodium /2017 s every day Santo Carr Metformin HCL 08/29 Active Tablets 500mg 120ta 2 by mouth E11.9 bs in in the Carr, morning M.DTangela [...] Hx Powder 1% 45gm apply on B35.3 the Charlie Carr affected M.D. 04/15 areas of foot twice [...] sprays 477.9 Trisha Simmons s each Charlie Long nostril Santo 06/182016 [...] Tablets DR 500mg 60tab not taking 842.01 s Charlie Long M.D. 10/16 Splint Formed 02/06 Hx 2unit [...] Metronidazole 06/27 Hx Gel 0.75% 1tube 1 Vaginal applicator Charlie Long M.D. 09/17 al for days Venlafaxine HCL 05/13 Hx Tablets 75mg 30tab 1 po qd Charlie Mccord M.D. 09/17 Venlafaxine HCL 05/09 Hx Caps ER 37.5mg 50cap 1 tab po 309.0 Trisha ER /2013 24HR s every day Ethan, - for 7 M.D. 05/14 days, 2 tab po every day for 3 weeks Pravachol 05/09 Hx Tablets 40mg 60tab 2 tab by 272.9 s mouth Ethan, - every day M.D. 10/08 Sertraline HCL 12/04 Hx Tablets 100mg 45tab 1 1 tab 309.0 Trisha /2012 s po qd [...] Tablets 100mg 30tab 1 po qd Trisha s Ethan - M.D. 05/09 Furosemide Hx [...] 20mg 30tab take 1 Trisha s tablet Ethan, - every M.D. 05/09 Bupropion HCL SR Hx Tablets 200mg 30tab 1 by mouth Ethan, /0000 s qd Charlie Rico MD 06/12 Tramadol HCL Hx Tablets 50mg 50tab four times Unknown /0000 s a day as - needed 03/18 Trazodone HCL 00/00 Hx Tablets 50mg 30tab 1-2 tablet Emily [...] CPT Code Status Date Vaccine Lot # [id number] Given 01/16/2018 Influenza Virus Vaccine, Quadrivalent, Split, [id number] Preservative Free 97180 Given 07/18/2017 Pneumonia Vaccine [id number] 66121 Given 01/29/2017 Influenza Virus Vaccine, Quadrivalent, Split, [id number] Preservative Free 21070 Given 08/29/2016 Tdap - Tetanus/Diptheria/Acellular Pertussis [id number] 97268 Given 08/29/2016 Pneumococcal Conjugate Vaccine 13 Valent For [id number] Intramuscular Use 67596 Given 01/27/2016 Influenza Virus Vaccine, Quadrivalent, Split, [id number] Preservative Free 52545 Given 06/18/2015 Influenza Virus Vaccine, Quadrivalent, Split, [id number] Preservative Free 69945 Given 02/27/2014 Flu Vaccine Split Virus Preservative Free For [id number] Indiv 3Yr Older 81379 Given 02/18/2013 Flu Vaccine Split Virus Preservative Free For [id number] Indiv 3Yr Older Vital Signs Date Vital [...] Result H/L Range Note Laboratory test 04/09/2018 [facility] B-Type Natriuretic 14 pg/ mL <=[address] [place] [address] [phone] TSH (Thyroid Stim Horm) 3.47 mcIU/mL N 0.34-5.60 Laboratory test 04/09/2018 [facility] Hemoglobin A1c 5.9 % High 4.0-5.6 [address] (Glyco HGB) [place] [address] [phone] Laboratory test 02/04/2018 [facility] T3 Free 3.80 N 2.5-3.[address] pg/[place] [address] [phone] Free T4 (Free Thyroxine) 0.83 ng/dL N 0.61-1.12 TSH (Thyroid Stim Horm) 3.83 mcIU/mL N 0.34-5.60 Laboratory test 01/16/2018 [facility] B-Type Natriuretic 17 pg/ mL [address] Peptide BNP [place], [place] [phone] TSH (Thyroid Stim Horm) 8.41 mcIU/mL High 0.34-5.60 Free T4 (Free Thyroxine) 0.59 ng/dL Low 0.61-1.12 T3 Free 3.40 pg/mL N 2.5-3.9 Thyroperoxidase AB 2008.75 IU/mL High <9 Urine Microalbumin 01/16/2018 [facility] Ur Microalbumin 73.9 [address] (mg/L) [place] [address] [phone] Urine Creatinine 135.34 mg/dL Urine Microalbumin/Creatinine 54.6 High <31 Ua Routine 01/16/2018 [facility] Ua Specific [place] 1.020 Ua PH 5 Ua Color yellow Ua Appera cloudy Ua WBC ++ Ua Protein trace Ua Glucose norm Ua Ketones - Ua Bilirubin - Ua Urobilinogen norm Ua Nitrite + Ua Occult Blood 50 Laboratory test 10/29/2017 [facility] Hemoglobin A1c 6.3 % High 4.0-5.6 [address] [place] [address] [phone] Lipid Profile 07/19/2017 [facility] Triglycerides 204 5 (Trig/Chol/HDL) [address] mg/dL [place], [place] [address] [phone] Cholesterol 148 mg/dL 6 HDL Cholesterol 34.4 mg/dL 7 LDL Cholesterol 73 mg/dL 8 Laboratory test 07/18/2017 [facility] Hemoglobin A1c 6.6 5-7 finding Laboratory test 01/29/2017 [facility] Hemoglobin A1c 6.0 5-7 finding Laboratory test 08/29/2016 [facility] Cytology SEE RESULT [address] [place] [address] [phone] Urine Microalbumin 08/29/2016 [facility] Urine Creatinine 92.71 mg/dL N Random [address] [place] [address] [phone] Ur Microalbumin (mg/L) < 15.0 mg/L N Urine Microalbumin/Creatinine TNP ug/mg N <31 10 Basic Metabolic Panel 08/26/2016 [facility] Sodium 135 mmol/L N 133-145 [place] [address] [phone] Potassium 4.4 mmol/L N 3.5-5.0 Chloride 106 mmol/L N 101-111 Co2 Carbon Dioxide 27 mmol/L N 22-32 Anion Gap 2 mmol/L N 2-11 Glucose 123 mg/dL High 70-100 Blood Urea Nitrogen 13 mg/dL N 6-24 Creatinine 0.92 mg/dL N 0.51-0.95 BUN/Creatinine Ratio 14.1 N 8-20 Calcium 8.7 mg/dL N 8.6-10.3 Egfr Non- 65.2 N >60 Egfr 83.8 N >60 11 Lipid Profile 08/26/2016 [facility] Triglycerides 164 mg/dL N 12 (Trig/Chol/HDL) [address] [place] [address] [phone] Cholesterol 191 mg/dL N 13 HDL Cholesterol 31.2 mg/dL N 14 LDL Cholesterol 127 mg/dL N 15 Laboratory test 08/26/2016 [facility] Hemoglobin A1c 6.4 % High Less than 16 finding [facility] (Glyco HGB) 6.0 [place] [address] [phone] CBC Auto Diff 08/26/2016 [facility] White Blood 7.2 N 3.5- 10.8 DRIVE Count 10^3/[place] [address] [phone] Red Blood Count 5.35 10^6/uL N 4.0-5.4 [...] % 0.1 N Comp Metabolic Panel 01/21/2016 [facility] Sodium 139 mmol/L N 133-[address] [place] [address] [phone] Potassium 4.1 mmol/L N 3.5-5.0 Chloride 107 [...] Egfr 93.5 N >60 17 Laboratory 01/21/2016 [facility] Hemoglobin 6.1 % High Less than 6.0 18 test finding [address] A1c ([place] [address] HGB) [phone] Laboratory 12/04/2015 [facility] HIV 1&2 AB Nonreactive N Nonreactive 19 test finding [address] [place] [address] Referred [phone] Herpes 12/04/2015 [facility] Herpes Negative N Negative Simplex Type [address] Simplex 1&2 [place] [address] Virus I IgG [phone] AB Herpes Simplex Virus II IgG AB Positive N Negative 20 Lipid Profile 12/04/2015 [facility] Triglycerides 133 mg/dL N 21 (Trig/Chol/HDL) [address] [place] [address] [phone] Cholesterol 157 mg/dL N 22 HDL Cholesterol 28.8 mg/dL N 23 LDL Cholesterol 102 mg/dL N 24 Laboratory test 08/27/2015 [facility] Cytology SEE RESULT BELOW [address] [place] [address] [phone] HPV Rna Ww/Reflex Genotype Negative N Negative 26 Lipid Profile 08/21/2015 [facility] Triglycerides 193 mg/dL N 27 (Trig/Chol/HDL) [address] [place] [address] [phone] Cholesterol 227 mg/dL N 28 HDL Cholesterol 30.6 mg/dL N 29 LDL Cholesterol 158 mg/dL N 30 Comp Metabolic Panel 08/21/2015 [facility] Sodium 136 mmol/L N 133-[address] [place] [address] [phone] Potassium 4.5 mmol/L N 3.5-5.0 Chloride 107 [...] 91.0 N >60 31 Laboratory test 06/18/2015 [facility] Hemoglobin A1c 5.9 5-7 finding Laboratory test 10/16/2014 [facility] Hemoglobin A1c 6.1 5-7 finding Lipid Profile 10/13/2014 [facility] Triglycerides 222 mg/dL N 32 (Trig/Chol/HDL) [address] [place] [address] [phone] Cholesterol 196 mg/dL N 33 HDL Cholesterol 33.4 mg/dL N 34 LDL Cholesterol 118 mg/dL N 35 Comp Metabolic Panel 10/13/2014 [facility] Sodium 137 mmol/L N 133-145 [address] [place] [address] [phone] Potassium 4.3 mmol/L N 3.5-5.0 Chloride 103 [...] N >60 36 Urine Culture And 02/27/2014 [facility] Urine Culture (SEE NOTE ) 37 Sensitivities [address] [place] [address] [phone] Ua Routine 02/27/2014 [facility] Ua Specific 1.025 [place] Ua PH 5.0 Ua Color yellow Ua Appera sl turbid Ua WBC small Ua Protein negative Ua Glucose negative Ua Ketones negative Ua Bilirubin negative Ua Urobilinogen negative Ua Nitrite negative Ua Occult Blood 3+ (large) Lipid Profile 02/14/2014 [facility] Triglycerides 129 mg/dL N 38, 39 (Trig/Chol/HDL) [address] [place], [place] [address] [phone] Cholesterol 160 mg/dL N 40 HDL Cholesterol 33.9 mg/dL N 41 LDL Cholesterol 100 mg/dL N 42 Lipid Profile 04/26/2013 [facility] Triglycerides 186 mg/dL 40-200 (Trig/Chol/HDL) [address] [place], [place] [address] [phone] Cholesterol 180 mg/dL Less than 200 HDL Cholesterol 33 mg/dL Low 40-60 43 Cholesterol/HDL Ratio 5.5 Average High 1-4.44 LDL Cholesterol 109.8 High Less Than 100 44 Urine Culture And 02/27/2013 [facility] Urine Culture (SEE NOTE ) 45 Sensitivities [address] [place] [address] [phone] Ua Routine 02/27/2013 [facility] Ua Specific 1.020 [place] Ua PH 5 Ua Color brown Ua Appera clear Ua WBC positive Ua Protein positive Ua Glucose neg Ua Ketones neg Ua Bilirubin neg Ua Urobilinogen neg Ua Nitrite neg Ua Occult Blood positive Ua Routine 02/18/2013 [facility] Ua Specific [place] 1.015 Ua PH 5.0 Ua Color yellow Ua Appera clear Ua WBC small Ua Protein trace Ua Glucose neg Ua Ketones neg Ua Bilirubin small Ua Urobilinogen neg Ua Nitrite neg Ua Occult Blood small Ua W/Microscopic 02/18/2013 [facility] Urine Color Yellow [address] [place] [address] [phone] Urine Appearance Clear Urine Specific [place] 1.018 1.010-1.030 Urine Esterase 1+ Abnormal Negative [...] /lpf None Seen Urine Culture And 02/18/2013 [facility] Urine Culture (SEE NOTE ) 46 Sensitivities [address] [place] [address] [phone] Lipid Profile 10/23/2012 [facility] Triglycerides 167 mg/dL 40-20 (Trig/Chol/HDL) [address] [place] [address] [phone] Cholesterol 156 mg/dL Less than 200 HDL Cholesterol 29 mg/dL Low 40-60 47 Cholesterol/HDL Ratio 5.4 Average High 1-4.44 LDL Cholesterol 93.6 Less Than 100 48 Lipid Profile 06/29/2012 [facility] Triglycerides 76 mg/dL 40 -200 (Trig/Chol/HDL) [address] [place] [address] [phone] Cholesterol 170 mg/dL Less than 200 HDL Cholesterol 31 mg/dL Low 40-60 49 Cholesterol/HDL Ratio 5.5 Average High 1-4.44 LDL Cholesterol 123.8 mg/dL High Less Than 100 50 Liver Function 06/29/2012 [facility] Total Protein 5.8 g/dL Low 6.2-8.[address] [place], [place] [address] [phone] Albumin 3.4 g/dL Low 3.6-5.4 Globulin 2.4 g/dL 2-4 Albumin/Globulin Ratio 1.4 1-3 Total Bilirubin 0.3 mg/dL Low 0.4-1.5 Direct Bilirubin 0.1 mg/dL 0.1-0.5 Indirect Bilirubin 0.2 mg/dL Low 0.3-1.0 Alkaline Phosphatase 55 U/L 30-110 Alt 16 U/L 14-54 Ast 15 U/L 12-42 Laboratory test 06/25/2012 [facility] Affirm Vaginal Dna (SEE NOTE) [address] [place] [address] [phone] Cytology 06/25/2012 [facility] Cy RUN DATE: [address] 06/26/ [place] [address] <SEE NOTE> [phone] GC/Chlamydia 06/25/2012 [facility] GC/Chlamydia Rna (SEE NOTE) 53 Amplified Rna [address] [place] [address] [phone] Lipid Profile 10/28/2011 [facility] Triglyceride 157 mg/dL 40 -20 (Trig/Chol/HDL) [address] 0 [place], [place] [address] [phone] Cholesterol 203 mg/dL High Less Than 200 54 High Density Lipoprotein 28 mg/dL Low 40-60 55 Cholesterol/HDL Ratio 7.25 AVERAGE High 1-4.44 Low Density Lipoprotein 144 mg/dL High Less Than 100 56 Liver Function 10/28/2011 [facility] Total Protein 5.8 GM/DL Low 6.2-8.[address] [place] [address] [phone] Albumin 3.4 GM/DL Low 3.6-5.4 Globulin 2.4 GM/DL 2-4 Albumin/Globulin Ratio 1.4 1-3 Bilirubin Total 0.6 mg/dL 0.4-1.5 57 Bilirubin Direct 0.1 mg/dL 0.1-0.5 Indirect Bilirubin 0.5 mg/dL 0.3-1.0 58 Alkaline Phosphatase 50 U/L 30-110 Alt (SGPT) 20 U/L 14-54 Ast (Sgot) 18 U/L 12-42 Comp Metabolic Panel 09/25/2011 [facility] Sodium 139 mmol/L 135-[address] [place] [address] [phone] Potassium 4.2 mmol/L 3.5-5.0 Chloride 109 mmol/L [...] > 60 62 Type And Screen 09/25/2011 [facility] Patient Blood O POSITIVE (Pre-Adm) [address] [place] [address] [phone] Antibody Screen NEGATIVE Specimen Discard Date 10/09/11 63 CBC Auto Diff 09/25/2011 [facility] White Blood 6.9 CUMM 4.8- 10.[address] [place] [address] [phone] Red Cell Count 4.31 CUMM 4.2-5.4 Hemoglobin [...] Abs Basophils 0 0-0.2 Liver Function 09/02/2011 [facility] Total Protein 6.3 GM/DL 6.2-8.[address] [place] [address] [phone] Albumin 3.5 GM/DL Low 3.6-5.4 Globulin 2.8 GM/DL 2-4 Albumin/Globulin Ratio 1.3 1-3 Bilirubin Total 0.6 mg/dL 0.4-1.5 64 Bilirubin Direct 0.1 mg/dL 0.1-0.5 Indirect Bilirubin 0.5 mg/dL 0.3-1.0 65 Alkaline Phosphatase 58 U/L 30-110 Alt (SGPT) 18 U/L 14-54 Ast (Sgot) 16 U/L 12-42 Lipid Profile 09/02/2011 [facility] Triglyceride 157 mg/dL 40 -200 (Trig/Chol/HDL) [address] [place] [address] [phone] Cholesterol 251 mg/dL High Less Than 200 66 High Density Lipoprotein 38 mg/dL Low 40-60 67 Cholesterol/HDL Ratio 6.61 AVERAGE High 1-4.44 Low Density Lipoprotein 182 mg/dL High Less Than 100 68 Laboratory test 09/02/2011 [facility] Potassium 4.2 mmol/L 3.5-5.[address] [place] [address] [phone] Laboratory test 06/16/2011 [facility] Thyroxine Free 0.76 ng/dL 0.61-1.[address] [place] [address] [phone] TSH 2.08 MIU/ML 0.34-5.60 1 Therapeutic target for the treatment of diabetes mellitus patients is <7% HBA1C, and in selective patients <6.0%. Please refer to [place] [employer] diabetic care guidelines for further information. 2 >100 to <200 pg/mL: likely compensated congestive heart failure (CHF) 200 to 400 pg/mL: likely moderate CHF >400 pg/mL: likely moderate to severe CHF 3 [id number] 4 Therapeutic target for the treatment of diabetes mellitus patients is <7% HBA1C, and in selective patients <6.0%. Please refer to [place] [employer] diabetic care guidelines for further information. 5 Desirable: <150 Borderline High: 150-199 High: 200-499 Very High: >500 6 Desirable: <200 Borderline High: 200-239 High: >239 7 Low: <40 Desirable: 40-60 High: >60 8 Desirable: <100 Near Optimal: 100-129 Borderline High: 130-159 High: 160-189 Very High: >189 9 SEE RESULT BELOW Name: TIERRA JUARES : [address]: Emily Carr MD Acct: [id number] Unit: [id number] AGE: 46 Location: [facility] Re08/29/16 SEX: F Status: REG REF SPEC: [id number] RAMONE: 08/29/16-1312 [facility] DR: Emily Carr MD REQ: [id number] RECD: 08/29/16183 STATUS: SOUT _ ORDERED: IMAGE ANALYSIS, HPV 16/18 GENE COMMENTS: [id number] FINAL DIAGNOSIS Negative for Intraepithelial lesion or [...] was evaluated with the assistance of the [employer] Test Imaging System. Due to cytologic findings at the java websphere developer microscope, comprehensive manual rescreening by a Launch Check Out may be required. The Pap Smear is [...] PATHOLOGY, [address], [place], [place] [address] Kip Rueda M.D. Director [facility] # [id number] 10 Unable to calculate due to low [...] and in selective patients <6.0%.Please refer to [place] [employer] Diabetic care guidelines for further [...] and in selective patients <6.0%.Please refer to [place] [employer] Diabetic care guidelines for further [...] 99.78 to 99.96%. 20 Test Performed by: [place] [address] Utility Assembler: Judd Isaac II, M.D., Ph.D. 21 Desirable [...] [address]: Trisha Long MD Acct: [id number] Unit: [id number] AGE: 45 Location: [facility] Re08/27/15 SEX: F Status: REG REF SPEC: [id number] RAMONE: 08/27/15-1312 [facility] DR: Trisha Long MD REQ: [id number] RECD: 08/27/15 STATUS: SOUT _ ORDERED: IMAGE [...] System. Due to cytologic findings at the java websphere developer microscope, comprehensive manual rescreening by a Launch Check Out may be required. The Pap Smear is [...] performed at Main Lab DEPARTMENT OF PATHOLOGY, [address] [place] [address] Kip Rueda M.D. Director [facility] # [id number] 26 The high-risk HPV types detected by [...] <15 (or dialysis) 37 RUN DATE: 03/01/14 [facility] LAB LIVE PAGE 1 RUN TIME: 1055 [address] [place], [place] [address] Specimen Inquiry Name: TIERRA JUARES : [address]: Trisha Long MD Acct: [id number] Unit: [id number] AGE: 43 Location: [facility] Re02/27/14 SEX: F Status: REG REF SPEC: [id number] RAMONE: 02/27/14-1520 [facility] DR: Trisha Long MD REQ: [id number] RECD: 02/27/14 STATUS: COMP _ SOURCE: URINE SPDESC: ORDERED: Urine Culture QUERIES: Medent Number [id number] Procedure Result Verified Site Urine Culture Final 03/01/14- 1054 ML Organism 1 NORMAL SHAW [place] Count >100,000 (Many) CFU/ML END OF REPORT * ML=Testing performed at Main Lab DEPARTMENT OF PATHOLOGY, [facility] [place] [address] Kip Rueda M.D. Director [facility] # [id number] 38 FASTING 39 Desirable <150 Borderline high [...] than 189 mg/dL 45 RUN DATE: 03/01/13 [facility] LAB LIVE PAGE 1 RUN TIME: [address] [place] [address] Specimen Inquiry Name: TIERRA JUARES : [address]: Trisha Long MD Acct: [id number] Unit: [id number] AGE: 42 Location: [facility] Re02/27/13 SEX: F Status: REG REF SPEC: [id number] RAMONE: 02/27/13-1236 [facility] DR: Trisha Long MD REQ: [id number] RECD: 02/27/13 STATUS: COMP _ SOURCE: URINE SPDESC: ORDERED: Urine Culture QUERIES: Medent Number [id number] Procedure Result Verified Site Urine Culture Final 03/01/13- 951 ML Organism 1 NORMAL [place] Count 50-75,000 (Many) CFU/ML END OF REPORT * ML=Testing performed at Main Lab DEPARTMENT OF PATHOLOGY, [address] [place] [address] Kip Rueda M.D. Director [facility] Permit #[id number] 46 RUN DATE: 02/20/13 [facility] LAB LIVE PAGE 1 RUN TIME: [address] [place] [address] Specimen Inquiry Name: TIERRA JUARES : [address]: Trisha Long MD Acct: [id number] Unit: [id number] AGE: 42 Location: [facility] Re02/18/13 SEX: F Status: REG REF SPEC: [id number] RAMONE: 02/18/131 [facility] DR: Trisha Long MD REQ: [id number] RECD: 02/18/13 STATUS: COMP _ SOURCE: URINE SPDESC: ORDERED: Urine Culture Procedure Result Verified Site Urine Culture Final 02/20/13- 0903 ML Organism 1 ESCHERICHIA COLI [place] Count 25-50,000 (Moderate) CFU/ML Organism 2 NORMAL [place] Count 10-25,000 (Moderate) CFU/ML 1. ESCHERICHIA COLI [...] performed at Main Lab DEPARTMENT OF PATHOLOGY, [address] [place] [address] Kip Rueda M.D. Director [facility] Permit #[id number] HDL Interpretation: Undesirable: High Risk: Less [...] than 189 MG/DL 51 RUN DATE: 06/26/12 [facility] LAB LIVE PAGE 1 RUN TIME: 6037 [address] [place], [place] [address] Specimen Inquiry Name: TIERRA JUARES : [address]: Trisha Long MD Acct: [id number] Unit: [id number] AGE: 41 Location: [facility] Re06/25/12 SEX: F Status: REG REF SPEC: [id number] RAMONE: 06/25/12-1513 [facility] DR: Trisha Long MD REQ: [id number] RECD: 06/25/12 STATUS: COMP _ SOURCE: TABATHA SPDESC: ORDERED: Affirm QUERIES: Medent Number [id number] Procedure Result Verified Site Affirm Vaginal DNA [...] performed at Main Lab DEPARTMENT OF PATHOLOGY, [facility] [employer] [place], [place] [address] Kip Rueda M.D. Director [facility] Permit #[id number] 52 RUN DATE: 06/26/12 [facility] LAB LIVE PAGE 1 RUN TIME: [address] [place] [address] Specimen Inquiry Name: TIERRA JUARES : [address]: Trisha Long MD Acct: [id number] Unit: [id number] AGE: 41 Location: [facility] Re06/25/12 SEX: F Status: REG REF SPEC: [id number] RAMONE: 06/25/12-[address]: Trisha Long MD REQ: [id number] RECD: 06/26/12 STATUS: SOUT _ ORDERED: IMAGE [...] (signature on file) VALDO Hernandez (ASCP) 06/26 1226 This Pap test was evaluated with the assistance of the [employer] Test Imaging System. Due to cytologic findings at the java websphere developer microscope, comprehensive manual rescreening by a Launch Check Out may be required. The Pap Smear is [...] performed at Main Lab DEPARTMENT OF PATHOLOGY, [facility] [employer] [place], [place] [address] Kip Rueda M.D. Director [facility] Permit #[id number] 53 RUN DATE: 06/28/12 [facility] LAB LIVE PAGE 1 RUN TIME: 1413 [facility] [employer] [place], [place] [address] Specimen Inquiry Name: TIERRA JUARES : [address]: Trisha Long MD Acct: [id number] Unit: [id number] AGE: 41 Location: [facility] Re06/25/12 SEX: F Status: REG REF SPEC: [id number] RAMONE: 06/25/12 [facility] DR: Trisha Long MD REQ: [id number] RECD: 06/25/12 STATUS: COMP _ SOURCE: THIN SPDESC: ORDERED: GC/Chlam RNA QUERIES: Medent Number [id number] Procedure Result Verified Site Chlamydia Trachomatis RNA [...] result may have adverse psychosocial impact, the [facility] recommends retesting by a method using an [...] performed at Main Lab DEPARTMENT OF PATHOLOGY, [facility] [employer] [place], [place] [address] Kip Rueda M.D. Director [facility] Permit #[id number] RUN DATE: 06/28/12 [facility] LAB LIVE PAGE 2 RUN TIME: 340 [facility] [employer] [place], [place] [address] Specimen Inquiry Patient: TIERRA JUARES [id number] (Continued) Specimen: [id number] Collected: 06/25/12 Received: 06/25/12-1918 (Continued) Procedure Result [...] performed at Main Lab DEPARTMENT OF PATHOLOGY, [address] [place] [address] Kip Rueda M.D. Director [facility] Permit #[id number] 54 CHOLESTEROL INTERPRETATION: Desirable: Less than 200 [...] has been shown to interfere with the Jessaik-Hipolito method for measuring total bilirubin. Samples from [...] has been shown to interfere with the Jendrassik-Garnet method for measuring total bilirubin. Samples from [...] has been shown to interfere with the Jendrassik-Garnet method for measuring total bilirubin. Samples from [...] MG/DL Procedures Date Code Description Status 01/28/2018 [id number] Diabetic Retinal Eye Exam Completed 07/24/2017 [id number] Mammogram Completed 12/20/2016 20491 Sleep Study Unattended,HRT Rate,Oxygen Sat,Resp Completed Effort/Airflow 09/12/2016 [id number] Diabetic Retinal Eye Exam Completed 09/08/2016 [id number] Mammogram Completed 09/02/2015 [id number] Mammogram Completed 06/24/2014 [id number] Mammogram Completed 06/19/2014 61296 Carpal Tunnel Release Completed 03/19/2014 25691 Rad Exam; Hand Comp Completed 03/19/2014 65364 Rad Exam; Hand Comp Completed 08/19/2012 [id number] Mammogram Completed 08/18/2011 [id number] Mammogram Completed Encounters Type Date Location Provider Dx Diagnosis Office Visit 04/16/2018 Pulmonology And Nu Suazo, G47.33 Obstructive sleep 1:30p [facility] ANGIE SANDERS, DAMARIS-POLA apnea (adult) 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) F17.210 Nicotine dependence, cigarettes, uncomplicated K13.79 Other lesions of oral mucosa E66.9 Obesity, unspecified Z68.41 Body mass index (BMI) 40.0-44.9, adult Office Visit 01/16/2018 1:00p [facility] Internal Emily Z23 Encounter for Medicine - Santo Carr [facility] Z00.00 Encntr for general adult medical exam w/o abnormal findings E11.9 Type 2 diabetes mellitus without complications R60.0 Localized edema N95.9 Unspecified menopausal and perimenopausal disorder Office Visit 10/22/2017 Pulmonology And Nu G47.33 Obstructive sleep 10:30a [facility] TOMMY Suazo, RN, apnea (adult) [facility] 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 mellitus without [place] complications E78.2 Mixed hyperlipidemia Z23 Encounter for immunization F17.210 Nicotine dependence, cigarettes, uncomplicated N64.4 Mastodynia Office Visit 07/16/2017 Pulmonology And Nu G47.33 Obstructive sleep 10:30a [facility] TOMMY Suazo RN, apnea (adult) [facility] (pediatric) F17.210 Nicotine dependence, cigarettes, uncomplicated Z68.41 Body mass index (BMI) 40.0-44.9, adult Office Visit 04/16/2017 Pulmonology And Un G47.33 Obstructive sleep 10:30a [facility] TOMMY Suazo RN, apnea (adult) [facility] (pediatric) F17.210 Nicotine dependence, cigarettes, uncomplicated E66.9 Obesity, unspecified Z68.41 Body mass index (BMI) 40.0-44.9, adult Office Visit 02/14/2017 Pulmonology And Nu G47.33 Obstructive sleep 11:30a [facility] TOMMY Suazo RN, apnea (adult) [facility] BUSINESS SOLUTIONS CONSULTANT-BC (pediatric) Z68.41 Body mass index (BMI) 40.0-44.9, adult F17.210 Nicotine dependence, cigarettes, uncomplicated E66.9 Obesity, unspecified Office Visit 01/29/2017 11:50a [facility] Internal Emily E11.9 Type 2 diabetes Kyra Carr M.D. mellitus without [place] complications B35.3 Tinea pedis F17.210 Nicotine dependence, cigarettes, uncomplicated Z23 Encounter for immunization E66.9 Obesity, unspecified Office Visit 01/03/2017 Pulmonology And Nu G47.33 Obstructive sleep 11:45a [facility] TOMMY Suazo RN, apnea (adult) [facility] BUSINESS SOLUTIONS CONSULTANT-BC (pediatric) R09.02 Hypoxemia E66.9 Obesity, unspecified Z68.39 Body mass index (BMI) 39.0-39.9, adult F17.210 Nicotine dependence, cigarettes, uncomplicated Office Visit 12/18/2016 11:30a Pulmonology [facility] Sleep Deandra Henry, R06.83 [facility] R06.81 Apnea, not elsewhere classified R40.0 Somnolence G47.8 Other sleep disorders Office Visit 10/31/2016 9:10a [facility] Internal Emily A87.9 Viral meningitis , Kyra Carr M.D. unspecified [place] G47.00 Insomnia, unspecified F17.210 Nicotine dependence, cigarettes, uncomplicated Office Visit 08/29/2016 11:10a [facility] Internal Emily Z00.01 Encounter for Kyra Carr M.D. general adult [facility] medical exam w abnormal findings E11.9 Type [...] neoplasm of cervix Office Visit 01/27/2016 10:50a [facility] Internal Emily Carr R73.01 Impaired Medicine - M.D. fasting glucose [place] F17.210 Nicotine dependence, cigarettes, uncomplicated F43.21 Adjustment disorder with depressed mood Z23 Encounter for immunization Office Visit 12/21/2015 11:50a [facility] Internal Emily E78.5 Hyperlipidemia, Kyra Carr M.D. unspecified [place] R60.9 Edema, unspecified R73.01 Impaired fasting glucose F17.210 Nicotine dependence, cigarettes, uncomplicated Office Visit 10/15/2015 11:40a [facility] Internal Trisha E78.5 Hyperlipidemia, Kyra Long M.D. unspecified [place] R73.01 Impaired fasting glucose Z11.59 Encounter for screening for other viral diseases Office Visit 06/18/2015 10:00a [facility] Internal Trisha Long Z23 Encounter for Medicine - M.D. immunization [place] F43.21 Adjustment disorder with depressed mood G47.00 Insomnia, unspecified E78.5 Hyperlipidemia, unspecified R73.01 Impaired fasting glucose R73.01 Impaired fasting glucose Office Visit 01/15/2015 11:40a [facility] Internal Trisha Long, 682.6 Cellulitis & Medicine - M.D. Abscess Leg [place] Except Foot 790.21 Impaired Fasting Glucose 477.9 Rhinitis Allergic Cause Unspec Office Visit 11/12/2014 11:45a Orthopedic Sammie Selby, 354.0 Carpal Tunnel Services Of M.D. Syndrome C.M.A. Office Visit 11/10/2014 2:40p [facility] Internal Trisha Long, 790.21 Impaired Medicine - M.D. Fasting Glucose [place] 782.3 Edema Office Visit 10/16/2014 2:40p [facility] Internal Trisha Long, 790.21 Impaired Medicine - M.D. 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 Syndrome C.M.A. Office Visit 09/15/2014 12:40p [facility] Internal Trisha Long, 729.81 Swelling Of Medicine - M.D. Limb [place] 782.3 Edema Office Visit 06/12/2014 2:40p [facility] Internal Trisha Long, 309.0 Adjustment Medicine - M.D. 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 Syndrome C.M.A. Office Visit 03/19/2014 8:30a Orthopedic Sammie Selby 354.0 Carpal Tunnel Services Of M.D. Syndrome C.M.A. Office Visit 03/18/2014 8:40a [facility] Internal Trisha Long, 842.01 Sprains & Medicine - M.D. Strains Wrist & [place] Hand Carpal (Joint) Office Visit 03/05/2014 9:20a [facility] Internal Trisha Long, 842.01 Sprains & Medicine - M.D. Strains Wrist & [place] Hand Carpal (Joint) Office Visit 02/27/2014 2:40p [facility] Internal Trisha Long, 788.1 Dysuria Medicine - M.D. [place] 842.01 Sprains & Strains Wrist & Hand Carpal (Joint) 844.9 Sprains & Strains Knee & Leg Unspec 272.9 Lipoid Metabolism Disorders Unspec V04.81 Need For Prophylactic Vaccination & Inoculation/Influenza Office Visit 02/06/2014 4:40p [facility] Internal Trisha Long, 842.01 Sprains & Strains Medicine - M.D. Wrist & Hand [place] Carpal (Joint) Office Visit 11/25/2013 4:00p [facility] Internal Trisha Long, 214.1 Lipoma Other Skin Medicine - M.D. And Subcutaneous [place] Tissue 272.9 Lipoid Metabolism Disorders Unspec Office Visit 10/20/2013 4:00p [facility] Internal Will Knowles 784.0 Headache Kyra Scott M.D. [place] Office Visit 08/26/2013 2:40p [facility] Internal Trisha Long, 847.2 Sprains & Medicine - M.D. Strains Lumbar [place] 309.0 Adjustment Disorder With Depression 272.9 Lipoid Metabolism Disorders Unspec Office Visit 05/26/2013 4:00p [facility] Internal Trisha Long, 309.0 Adjustment Medicine - M.D. Disorder With [place] Depression 272.9 Lipoid Metabolism Disorders Unspec Office Visit 04/25/2013 1:40p [facility] Internal Trisha Long, 309.0 Adjustment Medicine - M.D. Disorder With [place] Depression 272.9 Lipoid Metabolism Disorders Unspec Office Visit 02/27/2013 11:40a [facility] Internal Trisha Long, 599.0 UTI Urinary Medicine - M.D. Tract Infection [place] Site Not Spec Office Visit 02/18/2013 1:00p [facility] Internal Trisha Long, 788.1 Dysuria Medicine - M.D. [place] 309.0 Adjustment Disorder With Depression v04.81 Need For Prophylactic Vaccination & Inoculation/Influenza Office Visit 01/16/2013 1:40p [facility] Internal Trisha Long, 309.0 Adjustment Medicine - M.D. 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 Other [place] 309.0 Adjustment Disorder With Depression 272.9 Lipoid Metabolism Disorders Unspec Office Visit 09/17/2012 2:00p [facility] Internal Trisha 726.32 Epicondylitis Kyra Long M.D. Lateral [place] 841.8 Sprains & Strains Elbow & Forearm Other Spec Sites 840.9 Sprains & Strains Shoulder & Upper Arm Unspec 309.0 Adjustment Disorder With Depression 272.9 Lipoid Metabolism Disorders Unspec Office Visit 06/25/2012 3:00p [facility] Internal Trisha Long, V76.19 Screening Breast Medicine - M.D. Exam Malignant [place] Neoplasms Other V76.2 Screening Malignant Neoplasm Cervix 272.9 Lipoid Metabolism Disorders Unspec V72.31 Routine Operations Examiner Examination Office Visit 05/09/2012 4:00p [facility] Internal Trisha Long, 272.9 Lipoid Metabolism Medicine - M.D. Disorders Unspec [place] 309.0 Adjustment Disorder With Depression Office Visit 12/05/2011 4:40p [facility] Internal Trisha Long, 272.9 Lipoid Metabolism Medicine - M.D. Disorders Unspec [place] 309.0 Adjustment Disorder With Depression Office Visit 07/18/2011 3:00p [facility] Internal Trisha Long, 461.9 Sinusitis Acute Medicine - M.D. Unspec [place] 278.00 Obesity Unspec 786.03 Apnea 272.9 Lipoid Metabolism Disorders Unspec Office Visit 06/16/2011 2:20p [facility] Internal Trisha Long, 309.0 Adjustment Medicine - M.D. 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 at [facility] Internal Medicine - [address]74/04/2019 8:30 am - Dale Ryan LCSW at [facility] Internal Medicine - [address]/15/2018 1:30 pm - Nu Suazo DNP, RN, BUSINESS SOLUTIONS CONSULTANT- BC at [facility]04/22/2018 - Emily Carr M.D.Z01.818 Encounter for other preprocedural dedjbkmzgfcE04.05 Neoplasm of uncertain behavior of pharynxComments:undergoing elective surgery of right tonsillectomy for tonsillar growth ,E11.9 Type 2 diabetes mellitus without yphmpgwytuglkP85.89 Other specified depressive ojfpdakwG53.33 Obstructive sleep apnea (adult) (pediatric)Comments:stable with CPAPE78.2 Mixed hyperlipidemiaComments:stable with wwzrypK45.9 Hypothyroidism, unspecifiedComments:stable withF17.210 Nicotine dependence, cigarettes, uncomplicatedComments:please stop smoking !Z11.4 Encounter for screening for human immunodeficiency virus [HiZ68.41 Body mass index (BMI) 40.0-44.9, adult
--- OUTSIDE RECORDS SUMMARY | 2018-05-10 17:50 | XMS REPORT | Continuity of Care Document ---
:1970 External Reference #:[id number] Author Name Irvin Castellano MD Address [address] [place] [address] Care Team Providers Name Role Phone Emily Carr M.D. Care Team Information Bookkeeping Machine Mechanic Unavailable Emily Carr M.D. Primary Care Physician Unavailable Payers Type Date Identification Numbers Payment Provider Subscriber Effective: Policy Number: [id number] Medicare-[facility] Govn Nelida Christy 2018 [employer]VS PayID: [id number] 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 Family History Date Family Member(s) Problem(s) Comments General Diabetes First Son Asthma First Son Allergies First Brother Vertigo First Sister Vertigo Social History Type Date Description Comments Sex Unknown Occupation Unemployed Tobacco Use Start: Unknown Current Cigarette Smoker 1 Pack 33 year history Daily Tobacco Use Start: Unknown Never Smoked Cigars Tobacco Use Start: Unknown Never Smoked A Pipe Smokeless Tobacco Never Used Smokeless Tobacco ETOH Use Denies alcohol use Allergies, Adverse Reactions, Alerts Date Description Reaction Status Severity Comments 04/19/2018 Paxil Active Medications Medication Date Status Form Strength Qnty SIG Indications Ordering Provider Bupropion HCL Active Tablets 100mg 1 by mouth Unknown 000 every day Pravastatin Active Tablets 80mg 1 by mouth Unknown Sodium 000 every day Metformin HCL ER Active Tablets 500mg as Unknown (Mod) 000 ER 24HR directed Ezetimibe Active Tablets 10mg Unknown 000 Levothyroxine Active Tablets 50mcg 1 by mouth Unknown Sodium 000 every day Immunizations Description No Information Available Vital Signs Date Vital Result Comment 04/19/2018 9:04am Weight 223.00 lb Weight 101.153 kg Height 62 inches 5'2" Height in cm's 157.5 cm BMI (Body Mass Index) 40.8 kg/m2 Results Description No Information Available Procedures Description No Information Available Encounters Type Date Location Provider Dx Diagnosis Office Visit 04/19/2018 Jones,After Irvin Castellano, 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 Suggest a biopsy this would include a right tonsillectomy. Risks and complications of tonsillectomy was discussed with the patient.J35.1 Hypertrophy of tonsilsComments:Options of treatment including continued medical management versus surgical treatment including tonsillectomy was discussed. Risks and complications of tonsillectomy including bleeding infection injuryto the upper aerodigestive tract possibility of bleeding requiring additional surgery, sore throat were discussed with complications in laymans terms
--- OUTSIDE RECORDS SUMMARY | 2018-05-10 17:51 | XMS REPORT | Continuity of Care Document ---
:1970 External Reference #:[id number] Author Name Erika Maier Care Team Providers Name Role Phone Emily Carr MD Primary Care Physician Unavailable Payers Type Date Identification Numbers Payment Provider Subscriber Effective: 2014 Policy Number: [id number] Medicare Tierra Christy PayID: [id number] [address] [place] [address] Effective: 2014 Policy Number: [id number] Medicaid Tierra Christy Group Name: 1 1 [address] PayID: [id number] [place] [address] Effective: 2011 Policy Number: [employer] Medicaid Tierra Christy [id number] Expires: 2014 PayID: [id number] [address] [address] [place] [address] Advance Directives Description No Information Available Problems Date Description Provider Status Onset: 07/18/2011 Obesity Trisha Long M.D. Active Onset: 12/21/2015 Hyperlipidemia Emily Carr M.D. Active Onset: 12/21/2015 Tobacco user Emily Carr M.D. Active Onset: 08/29/2016 Type 2 diabetes mellitus Emily Carr M.D. Active Onset: 12/18/2016 Difficulty breathing Deandra Henry MD Active Onset: 04/16/2017 Obstructive sleep apnea syndrome Nu Suazo DNP, RN, Active 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 and 2 tab at night daily Onetouch Delica 06/12 Active Misc 100un check once R73.01 Emily Lancets Extra its a Jaime Carr 33G day.please M.D. notify pt. when ready. Zetia 10/14 Active Tablets 10mg 90tab take one Emily s tablet by Carr, mouth M.DTangela every evening Ra Loratadine 01/21 Active Tablets 10mg 30tab 1 by mouth Emily /2014 s every day Santo Carr Onetouch Ultra 10/16 Active Strips 180un test 1 R73.01 Emily Blue its times a Bruno day or as M.DTangela needed dx e11.9 Pravachol 10/08 Active Tablets [...] s if she is Bruno, - taking---o M.DTangela 04/18 nce a Nicorette Starter 06/12 Hx Gum 2mg 100un use a Emily its piece of Charlie Carr gum in M.D. 07/15 place cigarettes Chantix 04/16 Hx Tablets 1mg 30tab as Emily Continuing s Mehdi Toure M.D. 06/12 Chantix Starting 03/23 Hx Tablets 0.5mg X 53tab take as Emily 11 & 1 mg s directed Charlie Carr X 42 on the M.D. 04/16 Tolnaftate 01/29 Hx Powder 1% 45gm apply on B35.3 the Charlie Carr affected M.D. 04/15 areas of foot twice a day Valacyclovir HCL 10/28 Hx Tablets 1gm take 1 tablet by - mouth 11/07 times a day Diflucan 08/26 Hx Tablets 150mg 2tabs 1 tab by Z12.4 Trisha mouth once Ethan - no and Gaye.Srinivasan 10/14 repeat in 1 week Venlafaxine HCL 06/18 Hx Caps ER 75mg 90cap 1 by mouth F43.21 Trisha 24HR s every day Charlie Long M.D. 01/26 Keflex 01/15 Hx Capsules 250mg 30cap 1 tab by 682.6 Trisha s mouth Ethan, - every 8 M.D. Glucophage XR 01/15 Hx Tablets ER 1000mg 60tab 1 by mouth Trisha 24HR s 2x per day Charlie Long M.D. 12/20 Fluticasone 01/15 Hx Suspension 50mcg/Act 1unit 2 sprays 477.9 Trisha Propionate s each Charlie Long nostril Santo 06/18 Metformin HCL ER 11/12 Hx [...] Hx Misc 100un use 2 x R73.01 its daily dx Charlie Carr code Gaye.Srinivasan 06/12 r73.01 Hydrochlorothiazi 09/15 Hx Tablets 12.5mg 30tab 1 by mouth 729.81 Trisha de s every day Charlie Long M.D. 01/15 Bupropion HCL ER 05 Hx Tablets ER 200mg 30tab 1 by [...] 10/16 Splint Formed 02/06 Hx 2unit 842.01 Charlie Mccord M.D. 01/02 Fexofenadine HCL 06/03 Hx Tablets 180mg 30tab 1 by mouth Trisha /2014 s every day Charlie Long M.D. 06/18 Bupropion HCL XL 04/25 Hx Tablets ER 150mg 30tab 1 po qd 309.0 24HR Charlie Mccord M.D. 05/26 Sulfamethoxazole/ 02/18 Hx Tablets 800-160mg [...] ER 75mg 30cap 1 po qd 309.0 24HR Charlie Mccord M.D. 08/26 Venlafaxine HCL 09/17 Hx Caps ER 150mg 90cap 1 po qd 24HR Charlie Mccord M.D. 01/16 Metronidazole 06/27 Hx Gel 0.75% 1tube 1 applicator Charlie Long intravagin Santo 09/17 al for days Venlafaxine HCL 05/13 Hx Tablets 75mg 30tab 1 po qd Charlie Mccord M.D. 09/17 Venlafaxine HCL 05/09 Hx Caps ER 37.5mg 50cap 1 tab po 309.0 Trisha 24HR s every day Charlie Long for 7 M.DTangela 05/14 days, 2 tab po every day for 3 weeks Pravachol 05/09 Hx Tablets 40mg 60tab 2 tab by 272.9 s mouth Ethan, - every day M.D. 10/08 Sertraline HCL 12/04 Hx Tablets 100mg 45tab 1 1/2 tab 309.0 Trisha /2012 s po qd Ethan - M.D. 05/09 Pravachol 09/04 Hx Tablets 80mg 30tab 1 tab po Trisha s everyday Ethan - M.D. 05/14 Pravastatin 06/20 Hx Tablets 40mg 90tab take 1 Trisha s tablet by Ethan, - mouth once M.D. 09/06 Furosemide 06/16 Hx Tablets 20mg 10tab 1/2 tab po 272.9 Trisha s every day Ethan - for 5 M.D. 06/16 days. september contine for 10 days if swelling is not gone Sertraline HCL 06/16 Hx Tablets 100mg 30tab 1 po qd Trisha s Ethan - M.D. 05/09 Furosemide Hx Tablets 20mg 60tab 1 po qam Trisha / s Ethan - M.DTangela 12/04 Sertraline HCL Hx Tablets 100mg 90tab 1 po qd Unknown /0000 s - 06/16 Sertraline Hx Tablets 100 30tab 1 po qd Gigante, /0000 s Charlie Wisdom DO 06/16 Pravastatin Hx Tablets 100mg 30tab 1 tablet Unknown Sodium /0000 s once daily - at bedtime 07/17 Furosemide Hx Tablets 20mg 30tab take 1 Trisha / s tablet Ethan - every M.D. 05/09 Bupropion HCL SR Hx Tablets 200mg 30tab 1 by mouth Ethan, /0000 s qd Charlie Rico MD 06/12 Tramadol HCL Hx Tablets 50mg 50tab four times Unknown /0000 s a day as - needed 03/18 Trazodone HCL Hx Tablets 50mg 30tab 1-2 tablet Emily /0000 s at bedtime Carr, - as needed M.D. 08/22 Folic Acid Hx Tablets 400mcg take one Unknown /0000 tablet by - mouth 10/21 every (supplemen t) Vitamin C Plus 00 Hx Tablets 1000mg 1 by mouth Unknown /0000 1 time - week;ly 08/22 Vitamin D2 Hx Tablets 50,000Uni 1 by mouth Unknown /0000 ts once a - week for 8 Immunizations CPT Code Status Date Vaccine Lot # [id number] Given 01/16/2018 Influenza Virus Vaccine, Quadrivalent, Split, [id number] Preservative Free 48884 Given 07/18/2017 Pneumonia Vaccine [id number] 41762 Given 01/29/2017 Influenza Virus Vaccine, Quadrivalent, Split, [id number] Preservative Free 00011 Given 08/29/2016 Tdap - Tetanus/Diptheria/Acellular Pertussis [id number] 60001 Given 08/29/2016 Pneumococcal Conjugate Vaccine 13 Valent For [id number] Intramuscular Use 62025 Given 01/27/2016 Influenza Virus Vaccine, Quadrivalent, Split, [id number] Preservative Free 61471 Given 06/18/2015 Influenza Virus Vaccine, Quadrivalent, Split, [id number] Preservative Free 55819 Given 02/27/2014 Flu Vaccine Split Virus Preservative Free For [id number] Indiv 3Yr Older 94831 Given 02/18/2013 Flu Vaccine Split Virus Preservative Free For [id number] Indiv 3Yr Older Vital Signs Date Vital Result Comment 04/18/2018 10:07am Height 61.7 inches 5'1.70" Weight [...] Result H/L Range Note Laboratory test 04/09/2018 [facility] B-Type Natriuretic 14 pg/ mL <=[address] [place] [address] [phone] TSH (Thyroid Stim Horm) 3.47 mcIU/mL N 0.34-5.60 Laboratory test 04/09/2018 [facility] Hemoglobin A1c 5.9 % High 4.0-5.[address] (Glyco HGB) [place] [address] [phone] Laboratory test 02/04/2018 [facility] T3 Free 3.80 N 2.5-3.[address] pg/[place] [address] [phone] Free T4 (Free Thyroxine) 0.83 ng/dL N 0.61-1.12 TSH (Thyroid Stim Horm) 3.83 mcIU/mL N 0.34-5.60 Laboratory test 01/16/2018 [facility] B-Type Natriuretic 17 pg/ mL [address] [place] [address] [phone] TSH (Thyroid Stim Horm) 8.41 mcIU/mL High 0.34-5.60 Free T4 (Free Thyroxine) 0.59 ng/dL Low 0.61-1.12 T3 Free 3.40 pg/mL N 2.5-3.9 Thyroperoxidase AB 2008.75 IU/mL High <9 Urine Microalbumin 01/16/2018 [facility] Ur Microalbumin 73.9 [address] (mg/L) [place] [address] [phone] Urine Creatinine 135.34 mg/dL Urine Microalbumin/Creatinine 54.6 High <31 Ua Routine 01/16/2018 [facility] Ua Specific [place] 1.020 Ua PH 5 Ua Color yellow Ua Appera cloudy Ua WBC ++ Ua Protein trace Ua Glucose norm Ua Ketones - Ua Bilirubin - Ua Urobilinogen norm Ua Nitrite + Ua Occult Blood 50 Laboratory test 10/29/2017 [facility] Hemoglobin A1c 6.3 % High 4.0-5.6 [address] [place] [address] [phone] Lipid Profile 07/19/2017 [facility] Triglycerides 204 5 (Trig/Chol/HDL) [address] mg/[place] [address] [phone] Cholesterol 148 mg/dL 6 HDL Cholesterol 34.4 mg/dL 7 LDL Cholesterol 73 mg/dL 8 Laboratory test 07/18/2017 [facility] Hemoglobin A1c 6.6 5-7 finding Laboratory test 01/29/2017 [facility] Hemoglobin A1c 6.0 5-7 finding Laboratory test 08/29/2016 [facility] Cytology SEE RESULT [address] [place] [address] [phone] Urine Microalbumin 08/29/2016 [facility] Urine Creatinine 92.71 mg/dL N Random [address] [place] [address] [phone] Ur Microalbumin (mg/L) < 15.0 mg/L N Urine Microalbumin/Creatinine TNP ug/mg N <31 10 Basic Metabolic Panel 08/26/2016 [facility] Sodium 135 mmol/L N 133-[address] [place] [address] [phone] Potassium 4.4 mmol/L N 3.5-5.0 Chloride 106 mmol/L N 101-111 Co2 Carbon Dioxide 27 mmol/L N 22-32 Anion Gap 2 mmol/L N 2-11 Glucose 123 mg/dL High 70-100 Blood Urea Nitrogen 13 mg/dL N 6-24 Creatinine 0.92 mg/dL N 0.51-0.95 BUN/Creatinine Ratio 14.1 N 8-20 Calcium 8.7 mg/dL N 8.6-10.3 Egfr Non- 65.2 N >60 Egfr 83.8 N >60 11 Lipid Profile 08/26/2016 [facility] Triglycerides 164 mg/dL N 12 (Trig/Chol/HDL) [address] [place] [address] [phone] Cholesterol 191 mg/dL N 13 HDL Cholesterol 31.2 mg/dL N 14 LDL Cholesterol 127 mg/dL N 15 Laboratory test 08/26/2016 [facility] Hemoglobin A1c 6.4 % High Less than [address] (Glyco HGB) 6.0 [place] [address] [phone] CBC Auto Diff 08/26/2016 [facility] White Blood 7.2 N 3.5- 10.[address] Count 10^3/[place] [address] [phone] Red Blood Count 5.35 10^6/uL N 4.0-5.4 [...] % 0.1 N Comp Metabolic Panel 01/21/2016 [facility] Sodium 139 mmol/L N 133-[address] [place] [address] [phone] Potassium 4.1 mmol/L N 3.5-5.0 Chloride 107 [...] >60 Egfr 93.5 N >60 17 Laboratory test 01/21/2016 [facility] Hemoglobin A1c 6.1 % High Less [address] (Glyco HGB) than 6.0 [place] [address] [phone] Lipid Profile 12/04/2015 [facility] Triglycerides 133 N 19 (Trig/Chol/HDL) [address] mg/[place] [address] [phone] Cholesterol 157 mg/dL N 20 HDL Cholesterol 28.8 mg/dL N 21 LDL Cholesterol 102 mg/dL N 22 Herpes Simplex 12/04/2015 [facility] Herpes Simplex Negative N Negative Type 1&[address] [place] [address] [phone] Herpes Simplex Virus II IgG AB Positive N Negative 23 Laboratory 12/04/2015 [facility] HIV 1&2 AB Nonreactive N Nonreactive 24 test finding [address] [place] [address] Referred [phone] Laboratory 08/27/2015 [facility] Cytology SEE RESULT 25 test finding [address] [place] [address] [phone] HPV Rna Ww/Reflex Genotype Negative N Negative 26 Lipid Profile 08/21/2015 [facility] Triglycerides 193 mg/dL N 27 (Trig/Chol/HDL) [address] [place], [place] [phone] Cholesterol 227 mg/dL N 28 HDL Cholesterol 30.6 mg/dL N 29 LDL Cholesterol 158 mg/dL N 30 Comp Metabolic Panel 08/21/2015 [facility] Sodium 136 mmol/L N 133-[address] [place] [address] [phone] Potassium 4.5 mmol/L N 3.5-5.0 Chloride 107 [...] 91.0 N >60 31 Laboratory test 06/18/2015 [facility] Hemoglobin A1c 5.9 5-7 finding Laboratory test 10/16/2014 [facility] Hemoglobin A1c 6.1 5-7 finding Lipid Profile 10/13/2014 [facility] Triglycerides 222 mg/dL N 32 (Trig/Chol/HDL) [address] [place] [address] [phone] Cholesterol 196 mg/dL N 33 HDL Cholesterol 33.4 mg/dL N 34 LDL Cholesterol 118 mg/dL N 35 Comp Metabolic Panel 10/13/2014 [facility] Sodium 137 mmol/L N 133-145 [address] [place] [address] [phone] Potassium 4.3 mmol/L N 3.5-5.0 Chloride 103 [...] N >60 36 Urine Culture And 02/27/2014 [facility] Urine Culture (SEE NOTE ) 37 Sensitivities [address] [place] [address] [phone] Ua Routine 02/27/2014 [facility] Ua Specific 1.025 [place] Ua PH 5.0 Ua Color yellow Ua Appera sl turbid Ua WBC small Ua Protein negative Ua Glucose negative Ua Ketones negative Ua Bilirubin negative Ua Urobilinogen negative Ua Nitrite negative Ua Occult Blood 3+ (large) Lipid Profile 02/14/2014 [facility] Triglycerides 129 mg/dL N 38, 39 (Trig/Chol/HDL) [address] [place] [address] [phone] Cholesterol 160 mg/dL N 40 HDL Cholesterol 33.9 mg/dL N 41 LDL Cholesterol 100 mg/dL N 42 Lipid Profile 04/26/2013 [facility] Triglycerides 186 mg/dL 40-200 (Trig/Chol/HDL) [address] [place] [address] [phone] Cholesterol 180 mg/dL Less than 200 HDL Cholesterol 33 mg/dL Low 40-60 43 Cholesterol/HDL Ratio 5.5 Average High 1-4.44 LDL Cholesterol 109.8 High Less Than 100 44 Urine Culture And 02/27/2013 [facility] Urine Culture (SEE NOTE ) [address] [place] [address] [phone] Ua Routine 02/27/2013 [facility] Ua Specific 1.020 [place] Ua PH 5 Ua Color brown Ua Appera clear Ua WBC positive Ua Protein positive Ua Glucose neg Ua Ketones neg Ua Bilirubin neg Ua Urobilinogen neg Ua Nitrite neg Ua Occult Blood positive Ua Routine 02/18/2013 [facility] Ua Specific [place] 1.015 Ua PH 5.0 Ua Color yellow Ua Appera clear Ua WBC small Ua Protein trace Ua Glucose neg Ua Ketones neg Ua Bilirubin small Ua Urobilinogen neg Ua Nitrite neg Ua Occult Blood small Ua W/Microscopic 02/18/2013 [facility] Urine Color Yellow [address] [place] [address] [phone] Urine Appearance Clear Urine Specific [place] 1.018 1.010-1.030 Urine Esterase 1+ Abnormal Negative [...] /lpf None Seen Urine Culture And 02/18/2013 [facility] Urine Culture (SEE NOTE ) 46 Sensitivities [address] [place] [address] [phone] Lipid Profile 10/23/2012 [facility] Triglycerides 167 mg/dL 40-20 (Trig/Chol/HDL) [address] [place] [address] [phone] Cholesterol 156 mg/dL Less than 200 HDL Cholesterol 29 mg/dL Low 40-60 47 Cholesterol/HDL Ratio 5.4 Average High 1-4.44 LDL Cholesterol 93.6 Less Than 100 48 Liver Function 06/29/2012 [facility] Total Protein 5.8 g/dL Low 6.2-8.1 Panel [address] [place] [address] [phone] Albumin 3.4 g/dL Low 3.6-5.4 Globulin 2.4 g/dL 2-4 Albumin/Globulin Ratio 1.4 1-3 Total Bilirubin 0.3 mg/dL Low 0.4-1.5 Direct Bilirubin 0.1 mg/dL 0.1-0.5 Indirect Bilirubin 0.2 mg/dL Low 0.3-1.0 Alkaline Phosphatase 55 U/L 30-110 Alt 16 U/L 14-54 Ast 15 U/L 12-42 Lipid Profile 06/29/2012 [facility] Triglycerides 76 mg/dL 40 -200 (Trig/Chol/HDL) [address] [place] [address] [phone] Cholesterol 170 mg/dL Less than 200 HDL Cholesterol 31 mg/dL Low 40-60 49 Cholesterol/HDL Ratio 5.5 Average High 1-4.44 LDL Cholesterol 123.8 mg/dL High Less Than 100 50 Laboratory test 06/25/2012 [facility] Affirm (SEE NOTE) [address] [place] [address] Probe [phone] Cytology 06/25/2012 [facility] Cy RUN DATE: [address] <[place] [address] NOTE> [phone] GC/Chlamydia 06/25/2012 [facility] GC/Chlamydia (SEE NOTE) 53 Amplified Rna [address] [place] [address] [phone] Liver Function 10/28/2011 [facility] Total Protein 5.8 GM/DL Low 6.2-8. Panel [address] 1 [place] [address] [phone] Albumin 3.4 GM/DL Low 3.6-5.4 Globulin 2.4 GM/DL 2-4 Albumin/Globulin Ratio 1.4 1-3 Bilirubin Total 0.6 mg/dL 0.4-1.5 54 Bilirubin Direct 0.1 mg/dL 0.1-0.5 Indirect Bilirubin 0.5 mg/dL 0.3-1.0 55 Alkaline Phosphatase 50 U/L 30-110 Alt (SGPT) 20 U/L 14-54 Ast (Sgot) 18 U/L 12-42 Lipid Profile 10/28/2011 [facility] Triglyceride 157 mg/dL 40 -200 (Trig/Chol/HDL) [address] [place] [address] [phone] Cholesterol 203 mg/dL High Less Than 200 56 High Density Lipoprotein 28 mg/dL Low 40-60 57 Cholesterol/HDL Ratio 7.25 AVERAGE High 1-4.44 Low Density Lipoprotein 144 mg/dL High Less Than 100 58 Type And Screen 09/25/2011 [facility] Patient Blood O POSITIVE 59 (Pre-Adm) [address] [place] [address] [phone] Antibody Screen NEGATIVE Specimen Discard Date 10/09/11 60 Comp Metabolic Panel 09/25/2011 [facility] Sodium 139 mmol/L 135-[address] [place] [address] [phone] Potassium 4.2 mmol/L 3.5-5.0 Chloride 109 mmol/L 101-111 Co2 (Carbon Dioxide) 27.0 mmol/L 22-32 Anion Gap 3.0 mmol/L 2-11 61 Glucose 92 mg/dL 70-100 BUN 8 mg/dL 6-24 Creatinine 0.9 mg/dL 0.50-1.40 One Over Creatinine 1.11 BUN/Creatinine Ratio 8.9 8-20 Calcium 9.3 mg/dL 8.1-9.9 Total Protein 5.8 GM/DL Low 6.2-8.1 Albumin 3.7 GM/DL 3.6-5.4 Globulin 2.1 GM/DL 2-4 Albumin/Globulin Ratio 1.8 1-3 Bilirubin Total 0.5 mg/dL 0.4-1.5 62 Alkaline Phosphatase 50 U/L 30-110 Alt (SGPT) 19 U/L 14-54 Ast (Sgot) 16 U/L 12-42 eGFR Non- 68.3 > 60 eGFR 87.9 > 60 63 CBC Auto Diff 09/25/2011 [facility] White Blood 6.9 CUMM 4.8- 10.[address] [place] [address] [phone] Red Cell Count 4.31 CUMM 4.2-5.4 Hemoglobin [...] Abs Basophils 0 0-0.2 Liver Function 09/02/2011 [facility] Total Protein 6.3 GM/DL 6.2-8.1 Panel [address] [place] [address] [phone] Albumin 3.5 GM/DL Low 3.6-5.4 Globulin 2.8 GM/DL 2-4 Albumin/Globulin Ratio 1.3 1-3 Bilirubin Total 0.6 mg/dL 0.4-1.5 64 Bilirubin Direct 0.1 mg/dL 0.1-0.5 Indirect Bilirubin 0.5 mg/dL 0.3-1.0 65 Alkaline Phosphatase 58 U/L 30-110 Alt (SGPT) 18 U/L 14-54 Ast (Sgot) 16 U/L 12-42 Lipid Profile 09/02/2011 [facility] Triglyceride 157 mg/dL 40 -200 (Trig/Chol/HDL) [address] [place] [address] [phone] Cholesterol 251 mg/dL High Less Than 200 66 High Density Lipoprotein 38 mg/dL Low 40-60 67 Cholesterol/HDL Ratio 6.61 AVERAGE High 1-4.44 Low Density Lipoprotein 182 mg/dL High Less Than 100 68 Laboratory test 09/02/2011 [facility] Potassium 4.2 mmol/L 3.5-5.0 finding [address] [place] [address] [phone] Laboratory test 06/16/2011 [facility] Thyroxine Free 0.76 ng/dL 0.61-1.24 finding [address] [place] [address] [phone] TSH 2.08 MIU/ML 0.34-5.60 1 Therapeutic target for the treatment of diabetes mellitus patients is <7% HBA1C, and in selective patients <6.0%. Please refer to [place] [employer] diabetic care guidelines for further information. 2 >100 to <200 pg/mL: likely compensated congestive heart failure (CHF) 200 to 400 pg/mL: likely moderate CHF >400 pg/mL: likely moderate to severe CHF 3 [id number] 4 Therapeutic target for the treatment of [...] [address]: Emily Carr MD Acct: [id number] Unit: [id number] AGE: 46 Location: [facility] Re08/29/16 SEX: F Status: REG REF SPEC: [id number] RAMONE: 08/29/16-[address] [facility] [address]: Emily Carr MD REQ: [id number] RECD: 08/29/16-183 STATUS: SOUT _ ORDERED: IMAGE ANALYSIS, HPV 16/18 GENE COMMENTS: [id number] FINAL DIAGNOSIS Negative for Intraepithelial lesion or [...] Signed (signature on file) VALDO Diallo(ASCP) 08/30 1086 This Pap test was evaluated with the assistance of the [employer] Test Imaging System. Due to cytologic findings at the edge inker heels microscope, comprehensive manual rescreening by a Line Fixer may be required. The Pap Smear is [...] at Main Lab DEPARTMENT OF PATHOLOGY, [address] [place] [address] Kip Rueda M.D. Director [facility] # [id number] 10 Unable to calculate due to low [...] Diabetic care guidelines for further information. 19 Desirable <150 Borderline high 150-199 High 200-499 Very High >500 20 Desirable <200 Borderline high 200-239 High >239 21 Low <40 Desirable: 40-60 High: >60 22 Desirable: <100 mg/dL Near Optimal: 100-129 mg/dL Borderline High: 130-159 mg/dL High: 160-189 mg/dL Very High: >189 mg/dL 23 Test Performed by: [facility] [address] Audio Visual Design Engineer: Judd Isaac II, M.D., Ph.D. 24 It is recognized that currently available assays [...] 95% confidence interval of 99.78 to 99.96%. 25 SEE RESULT BELOW Name: TIERRA JUARES : [address]: Trisha Long MD Acct: [id number] Unit: [id number] AGE: 45 Location: [facility] Re08/27/15 SEX: F Status: REG REF SPEC: [id number] RAMONE: 08/27/15-[address] [facility] [address]: Trisha Long MD REQ: [id number] RECD: 08/27/15 STATUS: SOUT _ ORDERED: IMAGE [...] Yes, enter Diagnosis: History of HPV, ? SAED, Notes cervix was surgically removed. distorted blunt end, sent scraping Date Time Test Result Flag (u) Normal Range 08/27/15 1312 HPV RNA RFLX GE Negative Negative The high-risk HPV types detected by the assay include: 16, 18, 31, 33, 35, 39, 45, 51, 52, 56, 58, 59, 66, and 68. Signed (signature on file) VALDO Diallo(ASCP) 08/29 0910 This Pap test was evaluated with the assistance of the [employer] Test Imaging System. Due to cytologic findings at the edge inker heels microscope, comprehensive manual rescreening by a Line Fixer may be required. The Pap Smear is [...] at Main Lab DEPARTMENT OF PATHOLOGY, [address] [place] [address] Kip Rueda M.D. Director [facility] # [id number] 26 The high-risk HPV types detected by [...] <15 (or dialysis) 37 RUN DATE: 03/01/14 [facility] LAB LIVE PAGE 1 RUN TIME: 4311 [address] [place], [place] [address] Specimen Inquiry Name: TIERRA JUARES : [address]: Trisha Long MD Acct: [id number] Unit: [id number] AGE: 43 Location: [facility] Re02/27/14 SEX: F Status: REG REF SPEC: [id number] RAMONE: 02/27/14-[address] [facility] [address]: Trisha Long MD REQ: [id number] RECD: 02/27/14 STATUS: COMP _ SOURCE: URINE SPDESC: ORDERED: Urine Culture QUERIES: [employer] Number [id number] Procedure Result Verified Site Urine Culture Final 03/01/14- 1054 ML Organism 1 NORMAL SHAW [place] Count >100,000 (Many) CFU/ML END OF REPORT * ML=Testing performed at Main Lab DEPARTMENT OF PATHOLOGY, [address] [place] [address] Kip Rueda M.D. Director [facility] # [id number] 38 FASTING 39 Desirable <150 Borderline high [...] than 189 mg/dL 45 RUN DATE: 03/01/13 [facility] LAB LIVE PAGE 1 RUN TIME: [address] [place] [address] Specimen Inquiry Name: TIERRA JUARES : [address]: Trisha Long MD Acct: [id number] Unit: [id number] AGE: 42 Location: [facility] Re02/27/13 SEX: F Status: REG REF SPEC: [id number] RAMNOE: 02/27/131236 [facility] DR: Trisha Long MD REQ: [id number] RECD: 02/27/13 STATUS: COMP _ SOURCE: URINE SPDESC: ORDERED: Urine Culture QUERIES: [employer] Number [id number] Procedure Result Verified Site Urine Culture Final 03/01/13951 ML Organism 1 NORMAL SHAW [place] Count 50-75,000 (Many) CFU/ML END OF REPORT * ML=Testing performed at Main Lab DEPARTMENT OF PATHOLOGY, [facility] [employer] [place], [place] [address] Kip Rueda M.D. Director [facility] Permit #[id number] RUN DATE: 02/20/13 [facility] LAB LIVE PAGE 1 RUN TIME: 902 [facility] [address] [place], [place] [address] Specimen Inquiry Name: TIERRA JUARES : [address]: Trisha Long MD Acct: [id number] Unit: [id number] AGE: 42 [facility] [facility] Re[facility]18[facility]13 SEX: F Status: REG REF SPEC: [id number] RAMONE: 02/18/[address]: Trisha Long MD REQ: [id number] RECD: 02/18/13 STATUS: COMP _ SOURCE: URINE SPDESC: ORDERED: Urine Culture Procedure Result Verified Site Urine Culture Final 10/902 ML Organism 1 ESCHERICHIA COLI [place] Count 25-50,000 (Moderate) CFU/ML Organism 2 NORMAL SHAW [place] Count 10-25,000 (Moderate) CFU/ML 1. ESCHERICHIA COLI [...] at Main Lab DEPARTMENT OF PATHOLOGY, [address] [place] [address] Kip Rueda M.D. Director [facility] Permit #[id number] HDL Interpretation: Undesirable: High Risk: Less [...] than 189 MG/DL 51 RUN DATE: 06/26/12 [facility] LAB LIVE PAGE 1 RUN TIME: [address] [place], [place] [address] Specimen Inquiry Name: TIERRA JUARES : [address]: Trisha Long MD Acct: [id number] Unit: [id number] AGE: 41 Location: [facility] Re06/25/12 SEX: F Status: REG REF SPEC: [id number] RAMONE: 06/25/12-[address]: Trisha Long MD REQ: [id number] RECD: 06/25/12 STATUS: COMP _ SOURCE: VAGINAL SPDESC: ORDERED: Affirm QUERIES: Medent Number [id number] Procedure Result Verified Site Affirm Vaginal DNA [...] performed at Main Lab DEPARTMENT OF PATHOLOGY, [facility] [employer] [place], [place] [address] Kip Rueda M.D. Director [facility] Permit #[id number] RUN DATE: 06/26/12 [facility] LAB LIVE PAGE 1 RUN TIME: [address] [place] [address] Specimen Inquiry Name: TIERRA JUARES : [address]: Trisha Long MD Acct: [id number] Unit: [id number] AGE: 41 Location: [facility] Re06/25/12 SEX: F Status: REG REF SPEC: [id number] RAMONE: 06/25/12-[address]: Trisha Long MD REQ: [id number] RECD: 06/26/12 STATUS: SOUT _ ORDERED: IMAGE [...] (signature on file) VALDO Hernandez (ASCP) 06/26 1229 This Pap test was evaluated with the assistance of the ClickSquaredPrep Test Imaging System. Due to cytologic findings at the edge inker heels microscope, comprehensive manual rescreening by a Line Fixer may be required. The Pap Smear is [...] performed at Main Lab DEPARTMENT OF PATHOLOGY, [facility] [employer] [place], [place] [address] Kip Rueda M.D. Director [facility] Permit #[id number] RUN DATE: 06/28/12 [facility] LAB LIVE PAGE 1 RUN TIME: 141 [facility] [place], [place] [address] Specimen Inquiry Name: TIERRA JUARES : [address]: Trisha Long MD Acct: [id number] Unit: [id number] AGE: 41 Location: [facility] Re06/25/12 SEX: F Status: REG REF SPEC: [id number] RAMONE: 06/25/12-[address]: Trisha Long MD REQ: [id number] RECD: 06/25/12 STATUS: COMP _ SOURCE: THIN SPDESC: ORDERED: GC/Chlam RNA QUERIES: Medent Number [id number] Procedure Result Verified Site Chlamydia Trachomatis RNA [...] ON NEXT PAGE * ML=Testing performed at [facility] Lab DEPARTMENT OF PATHOLOGY, [address] [place] [address] Kip Rueda M.D. Director [facility] Permit #[id number] RUN DATE: 06/28/12 [facility] LAB LIVE PAGE 2 RUN TIME: [address] [place] [address] Specimen Inquiry Patient: TIERRA JUARES [id number] (Continued) Specimen: [id number] Collected: 06/25/12 Received: 06/25/12 (Continued) Procedure Result Verified Site GC (N. [...] at Main Lab DEPARTMENT OF PATHOLOGY, [address] [place] [address] Kip Rueda M.D. Director [facility] Permit #[id number] 54 A metabolite of Naproxen, O-desmethylnaproxen, has been shown to interfere with the Jendraurelioik-Monte [place]reno method for measuring total bilirubin. Samples from patients who have taken Naproxen have shown spurious elevation in total bilirubin levels. 55 Please note updated reference range, effective 11/25/09 56 CHOLESTEROL INTERPRETATION: Desirable: Less than 200 MG/DL Borderline-High Risk: 200-239 MG/DL High-Risk: 240 MG/DL and over 57 HDL INTERPRETATION: Undesirable: High Risk: Less than 40 MG/DL Desirable: Low Risk: Greater than 60 MG/DL 58 LDL INTERPRETATION: Low Risk Optimal Level: LDL Less than 100 MG/DL Near or Above Optimal: LDL 100-129 MG/DL Borderline High Risk: LDL 130-159 MG/DL High Risk: LDL 160-189 MG/DL Very High Risk: LDL Greater than 189 MG/DL 59 SDS 5-24-12 60 PREADMISSION TESTING SAMPLES FOR BLOOD BANK WILL [...] WITHIN 3 DAYS OF THE SURGERY DATE. 61 Anion gap measurement may be of limited value in the presence of any alkalosis, especially in a combined acid base disorder. . 62 A metabolite of Naproxen, O-desmethylnaproxen, has been shown to interfere with the Jendrassik-Hipolito method for measuring total bilirubin. Samples from patients who have taken Naproxen have shown spurious elevation in total bilirubin levels. 63 Because ethnic data is not always readily [...] 15-29 5 Kidney failure <15 (or dialysis) 64 A metabolite of Naproxen, O-desmethylnaproxen, has [...] MG/DL Procedures Date Code Description Status 01/28/2018 434187917 Diabetic Retinal Eye Exam Completed 07/24/2017 [id number] Mammogram Completed 12/20/2016 87752 Sleep Study Unattended,HRT Rate,Oxygen Sat,Resp Completed Effort/Airflow 09/12/2016 [id number] Diabetic Retinal Eye Exam Completed 09/08/2016 [id number] Mammogram Completed 09/02/2015 [id number] Mammogram Completed 06/24/2014 [id number] Mammogram Completed 06/19/2014 46693 Carpal Tunnel Release Completed 03/19/2014 77051 Rad Exam; Hand Comp Completed 03/19/2014 99635 Rad Exam; Hand Comp Completed 08/19/2012 [id number] Mammogram Completed 08/18/2011 [id number] Mammogram Completed Encounters Type Date Location Provider Dx Diagnosis Office Visit 01/16/2018 [facility] Internal Emily Carr, Z23 Encounter for 1:00p Kyra Guerra M.D. 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 mellitus without [place] complications E78.2 Mixed hyperlipidemia Z23 Encounter for immunization F17.210 Nicotine dependence, cigarettes, uncomplicated N64.4 Mastodynia Office Visit 07/16/2017 [facility] G47.33 Obstructive sleep 10:30a [facility] Suazo RN, apnea (adult) [facility] [place] (pediatric) F17.210 Nicotine dependence, cigarettes, uncomplicated Z68.41 Body mass index (BMI) 40.0-44.9, adult Office Visit 04/16/2017 [facility] G47.33 Obstructive sleep 10:30a [facility] Suazo RN, apnea (adult) [facility] (pediatric) F17.210 Nicotine dependence, cigarettes, uncomplicated E66.9 Obesity, unspecified Z68.41 Body mass index (BMI) 40.0-44.9, adult Office Visit 02/14/2017 [facility] G47.33 Obstructive sleep 11:30a [facility] Suazo RN, apnea (adult) [facility]- (pediatric) Z68.41 Body mass index (BMI) 40.0-44.9, adult F17.210 Nicotine dependence, cigarettes, uncomplicated E66.9 Obesity, unspecified Office Visit 01/29/2017 11:50a [facility] Internal Emily E11.9 Type 2 diabetes Kyra Carr M.D. mellitus without [place] complications B35.3 Tinea pedis F17.210 Nicotine dependence, cigarettes, uncomplicated Z23 Encounter for immunization E66.9 Obesity, unspecified Office Visit 01/03/2017 [facility] G47.33 Obstructive sleep 11:45a [facility] Su[facility] RN, apnea (adult) [facility] (pediatric) R09.02 Hypoxemia E66.9 Obesity, unspecified Z68.39 Body mass index (BMI) 39.0-39.9, adult F17.210 Nicotine dependence, cigarettes, uncomplicated Office Visit 12/18/2016 11:30a [facility] Deandra Henry, R06.83 [facility] R06.81 Apnea, not elsewhere classified R40.0 Somnolence G47.8 Other sleep disorders Office Visit 10/31/2016 9:10a [facility] Internal Emily A87.9 Viral meningitis , Kyra Carr M.D. unspecified [place] G47.00 Insomnia, unspecified F17.210 Nicotine dependence, cigarettes, uncomplicated Office Visit 08/29/2016 11:10a [facility] Internal Emily Z00.01 Encounter for Kyra Carr M.D. general adult [place] medical exam w abnormal findings E11.9 Type [...] neoplasm of cervix Office Visit 01/27/2016 10:50a [facility] Internal Emily Carr, R73.01 Impaired Medicine - M.D. fasting glucose [place] F17.210 Nicotine dependence, cigarettes, uncomplicated F43.21 Adjustment disorder with depressed mood Z23 Encounter for immunization Office Visit 12/21/2015 11:50a [facility] Internal Emily E78.5 Hyperlipidemia, Kyra Carr M.D. unspecified [place] R60.9 Edema, unspecified R73.01 Impaired fasting glucose F17.210 Nicotine dependence, cigarettes, uncomplicated Office Visit 10/15/2015 11:40a [facility] Internal Trisha E78.5 Hyperlipidemia, Kyra Long M.D. unspecified [place] R73.01 Impaired fasting glucose Z11.59 Encounter for screening for other viral diseases Office Visit 06/18/2015 10:00a [facility] Internal Trisha Long, Z23 Encounter for Medicine - M.D. immunization [place] F43.21 Adjustment disorder with depressed mood G47.00 Insomnia, unspecified E78.5 Hyperlipidemia, unspecified R73.01 Impaired fasting glucose R73.01 Impaired fasting glucose Office Visit 01/15/2015 11:40a [facility] Internal Trisha Long, 682.6 Cellulitis & Medicine - MOniel. Abscess Leg [place] Except Foot 790.21 Impaired Fasting Glucose 477.9 Rhinitis Allergic Cause Unspec Office Visit 11/12/2014 11:45a Orthopedic Sammie Selby, 354.0 Carpal Tunnel Services Of M.D. Syndrome C.M.A. Office Visit 11/10/2014 2:40p [facility] Internal Trisha Long, 790.21 Impaired Medicine - M.D. Fasting Glucose [place] 782.3 Edema Office Visit 10/16/2014 2:40p [facility] Internal Trisha Long, 790.21 Impaired Medicine - M.D. Fasting Glucose [place] 272.9 Lipoid Metabolism Disorders Unspec 782.3 Edema Office Visit 10/08/2014 10:00a Orthopedic Sammie Selby, 354.0 Carpal Tunnel Services Of M.D. Syndrome C.M.A. Office Visit 09/15/2014 12:40p [facility] Internal Trisha Long, 729.81 Swelling Of Medicine - M.D. Limb [place] 782.3 Edema Office Visit 06/12/2014 2:40p [facility] Internal Trisha Long, 309.0 Adjustment Medicine - M.D. 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 Syndrome C.M.A. Office Visit 03/19/2014 8:30a Orthopedic Sammie Selby, 354.0 Carpal Tunnel Services Of M.D. Syndrome C.M.A. Office Visit 03/18/2014 8:40a [facility] Internal Trisha Long, 842.01 Sprains & Medicine - M.D. Strains Wrist & [place] Hand Carpal (Joint) Office Visit 03/05/2014 9:20a [facility] Internal Trisha Long, 842.01 Sprains & Medicine - M.D. Strains Wrist & [place] Hand Carpal (Joint) Office Visit 02/27/2014 2:40p [facility] Internal Trisha Long, 788.1 Dysuria Medicine - M.D. [place] 842.01 Sprains & Strains Wrist & Hand Carpal (Joint) 844.9 Sprains & Strains Knee & Leg Unspec 272.9 Lipoid Metabolism Disorders Unspec V04.81 Need For Prophylactic Vaccination & Inoculation/Influenza Office Visit 02/06/2014 4:40p [facility] Internal Trisha Long, 842.01 Sprains & Strains Medicine - M.D. Wrist & Hand [place] Carpal (Joint) Office Visit 11/25/2013 4:00p [facility] Internal Trisha Long, 214.1 Lipoma Other Skin Medicine - M.D. And Subcutaneous [place] Tissue 272.9 Lipoid Metabolism Disorders Unspec Office Visit 10/20/2013 4:00p [facility] Internal Will Knowles 784.0 Headache Kyra Scott M.D. [place] Office Visit 08/26/2013 2:40p [facility] Internal Trisha Long, 847.2 Sprains & Medicine - M.D. Strains Lumbar [place] 309.0 Adjustment Disorder With Depression 272.9 Lipoid Metabolism Disorders Unspec Office Visit 05/26/2013 4:00p [facility] Internal Trisha Long, 309.0 Adjustment Medicine - M.D. Disorder With [place] Depression 272.9 Lipoid Metabolism Disorders Unspec Office Visit 04/25/2013 1:40p [facility] Internal Trisha Long, 309.0 Adjustment Medicine - M.D. Disorder With [place] Depression 272.9 Lipoid Metabolism Disorders Unspec Office Visit 02/27/2013 11:40a [facility] Internal Trisha Long, 599.0 UTI Urinary Medicine - M.D. Tract Infection [place] Site Not Spec Office Visit 02/18/2013 1:00p [facility] Internal Trisha Long, 788.1 Dysuria Medicine - M.D. [place] 309.0 Adjustment Disorder With Depression v04.81 Need For Prophylactic Vaccination & Inoculation/Influenza Office Visit 01/16/2013 1:40p [facility] Internal Trisha Long, 309.0 Adjustment Medicine - M.D. Disorder With [place] Depression 477.0 Rhinitis Allergic Due To Pollen 272.9 Lipoid Metabolism Disorders Unspec Office Visit 12/27/2012 2:40p [facility] Internal Trisha Long, 461.8 Sinusitis Acute Medicine - M.D. Other [place] 309.0 Adjustment Disorder With Depression 272.9 Lipoid Metabolism Disorders Unspec Office Visit 09/17/2012 2:00p [facility] Internal Trisha 726.32 Epicondylitis Kyra Long M.D. Lateral [place] 841.8 Sprains & Strains Elbow & Forearm Other Spec Sites 840.9 Sprains & Strains Shoulder & Upper Arm Unspec 309.0 Adjustment Disorder With Depression 272.9 Lipoid Metabolism Disorders Unspec Office Visit 06/25/2012 3:00p [facility] Internal Trisha Long, V76.19 Screening Breast Medicine - M.D. Exam Malignant [place] Neoplasms Other V76.2 Screening Malignant Neoplasm Cervix 272.9 Lipoid Metabolism Disorders Unspec V72.31 Routine Junior Net Developer Examination Office Visit 05/09/2012 4:00p [facility] Internal Trisha Long, 272.9 Lipoid Metabolism Medicine - M.D. Disorders Unspec [place] 309.0 Adjustment Disorder With Depression Office Visit 12/05/2011 4:40p [facility] Internal Trisha Long, 272.9 Lipoid Metabolism Medicine - M.D. Disorders Unspec [place] 309.0 Adjustment Disorder With Depression Office Visit 07/18/2011 3:00p [facility] Internal Trisha Long, 461.9 Sinusitis Acute Medicine - M.D. Unspec [place] 278.00 Obesity Unspec 786.03 Apnea 272.9 Lipoid Metabolism Disorders Unspec Office Visit 06/16/2011 2:20p [facility] Internal Trisha Long, 309.0 Adjustment Medicine - M.D. Disorder With [place] Depression 272.9 Lipoid Metabolism Disorders Unspec 278.00 Obesity Unspec 782.3 Edema Plan of Treatment Future Appointment(s):05/13/2018 9:50 am - Emily Carr M.D. at [facility] Internal Medicine Sivpccefj02/11/2019 1:30 pm - Nu Suazo DNP, RN, MOHEL -BC at [facility]04/18/2018 - Emily Carr M.D.E11.9 Type 2 diabetes mellitus without complicationsComments:You are not meeting goal for blood sugar control. Changes to medications are not indicated. A yearly nutrition visit is available to all diabetics.Follow up:5 icafxkR16.0 Ingrowing nailF32.89 Other specified depressive episodesNew Medication:Bupropion HCL ER (SR) 150 mg - take one tablet by mouth daily X 7 days then every 12 hoursComments:we discussed resuming the antidepressant that will also help with quitting smoking, if you feel hopeless and have suicidal thought , please call the suicide crisis prevention hotline which you are aware of , also option of going to the hospital is there , and you can always call one of our doctors field contact person even after hours, I suggested , you should start counselling that will be helpful.Referral:Dale Ryan, SHREDDER TENDER, Clinical/Social WorkerFollow up:3 wksK13.79 Other lesions of oral mucosaReferral:Prince Castellano MD, [id number] Dizziness and giddinessComments:as we discussed adequate hydration, avoiding sitting or standing for long time Goals 04/18/2018 - Emily Carr M.D.E11.9 Type 2 diabetes mellitus without complicationsGoal Hemoglobin A1c is less than 7.0%. Goal Blood pressure is less than 130/85. Goal LDL (bad cholesterol) is less than 100.
--- OUTSIDE RECORDS SUMMARY | 2018-05-10 17:51 | XMS REPORT | Continuity of Care Document ---
:1970 External Reference #:[id number] Author Name Kristine Kumarn Care Team Providers Name Role Phone Emily Carr MD Primary Care Physician Unavailable Payers Type Date Identification Numbers Payment Provider Subscriber Effective: 2014 Policy Number: [id number] Medicare Tierra Christy PayID: [id number] [address] [place] [address] Effective: 2014 Policy Number: [id number] Medicaid Tierra Christy Group Name: 1 1 [address] PayID: [id number] [place] [address] Effective: 2011 Policy Number: [employer] Medicaid Tierra Christy [id number] Expires: 2014 PayID: [id number] [address] [address] [place] [address] Advance Directives Description No Information Available Problems Date Description Provider Status Onset: 07/18/2011 Obesity Trisha Long M.D. Active Onset: 12/21/2015 Hyperlipidemia Emily Carr M.D. Active Onset: 12/21/2015 Tobacco user Emily Carr M.D. Active Onset: 08/29/2016 Type 2 diabetes mellitus Emily Carr M.D. Active Onset: 12/18/2016 Difficulty breathing Deandra Henry MD Active Onset: 04/16/2017 Obstructive sleep apnea syndrome Nu Suazo DNP, RN, Active [facility] Onset: 01/21/2018 Hypothyroidism due to [...] Use Denies Drug Use Smoking Status Reviewed: 04/16/18 Patient is a current smoker, smokes 1 ppd smokes every day Exercise Type/Frequency Exercises sporadically Allergies, Adverse Reactions, Alerts Date Description Reaction Status Severity Comments 06/16/2011 Paxil Contact dermatitis Active Medications Medication Date Status Form Strength Qnty SIG Indications Ordering Provider Levothyroxine 01/21 Active Tablets 50mcg 90tab 1 by mouth Emily s every day Santo Carr Wellbutrin SR 07/18 Active Tablets ER 100mg 30tab once a day F17.210 12HR s Santo Carr Metformin HCL 08/29 Active Tablets 500mg 120ta 2 by mouth E11.9 bs in in the Carr, morning M.D. and 2 tab at night daily Onetouch Delica 06/12 Active Misc 100un check once R73.01 [facility] a Jaime Carr 33G day.please M.D. notify pt. when ready. Zetia 10/14 Active Tablets 10mg 90tab take one s tablet by Bruno, mouth M.DTangela every evening Ra Loratadine 01/21 Active Tablets 10mg 30tab 1 by mouth Emily /2015 s every day Santo Carr Onetouch Ultra [...] use as F17.210 Emily /2018 24HR ts directed Charlie Carr M.D. 08/22 Nicorette Starter 06/12 Hx Gum 2mg 100un use a Emily Kit its piece of Charlie Carr gum in M.D. 07/15 place of cigarettes Chantix 04/16 Hx Tablets 1mg 30tab as Emily Continuing s Mehdi Toure M.D. 06/12 Chantix Starting 03/23 Hx Tablets 0.5mg X 53tab take as Emily 11 & 1 mg s Charlie Toure X 42 on the M.DTangela 04/16 Tolnaftate 01/29 Hx Powder 1% 45gm apply on B35.3 the Charlie Carr affected M.D. 04/15 areas of foot twice a day Valacyclovir HCL 10/28 Hx Tablets 1gm take 1 tablet by - mouth 11/07 times a day Diflucan 08/26 Hx Tablets 150mg 2tabs 1 tab by Z12.4 mouth once Ethan - gris and Santo 10/14 repeat in 1 week Venlafaxine HCL 06/18 Hx Caps ER 75mg 90cap 1 by mouth F43.21 Trisha ER 24HR s every day Charlie Long M.D. 01/26 Keflex 01/15 Hx Capsules 250mg 30cap 1 tab by 682.6 Trisha s mouth Charlie Long every 8 M.DTangela Glucophage XR 01/15 Hx Tablets ER 1000mg 60tab 1 by mouth Trisha /2015 24HR s 2x per day Charlie Long M.D. 12/20 Fluticasone 01/15 Hx Suspension 50mcg/Act 1unit 2 sprays 477.9 Trisha Propionate s each Charlie Longtril Santo 06/18 Metformin [...] R73.01 Emily /2015 its daily dx Charlie Carr code M.Srinivasan 06/12 r73.01 Hydrochlorothiazi 09/15 Hx Tablets 12.5mg 30tab 1 by mouth 729.81 Trisha s every day Charlie Long M.D. 01/15 [...] s mouth 2x Charlie Long per day M.Srinivasan 03/[address] 02/[address] 500mg 60tab not taking 842.01 Trisha /2013 s Charlie Long M.D. 10/16 Splint Formed [...] Caps ER 150mg 90cap 1 by mouth Trisha 24HR s every day Charlie Long M.D. 10/31 Fexofenadine HCL 12/27 Hx Tablets 180mg 30tab 1 po qd 461.8 Charlie Mccord M.D. 04/25 Venlafaxine HCL 12/27 Hx Caps ER 75mg 30cap 1 po qd 309.0 Trisha 24HR s Charlie Long M.D. 08/26 Venlafaxine HCL 09/17 Hx Caps ER 150mg 90cap 1 po qd Trisha 24HR Charlie Mccord M.D. 01/16 Metronidazole 06/27 Hx Gel 0.75% 1tube 1 applicator Charlie Long intravagin Santo 09/17 al for days Venlafaxine HCL 05/13 Hx Tablets 75mg 30tab 1 po qd Charlie Mccord M.D. 09/17 Venlafaxine HCL 05/09 Hx Caps ER 37.5mg 50cap 1 tab po 309.0 Trisha 24HR s every day Charlie Long for 7 M.D. 05/14 days, 2 tab po every day for 3 weeks Pravachol 05/09 Hx Tablets 40mg 60tab 2 tab by 272.9 s mouth Charlie Long every day MDarlyn 10/08 Sertraline HCL 12/04 Hx Tablets 100mg 45tab 1 1 tab 309.0 Trisha s po qd Charlie Long M.D. 05/09 Pravachol 09/04 Hx Tablets 80mg 30tab 1 tab po Trisha s everyday Charlie Long M.D. 05/14 Pravastatin 06/20 Hx Tablets 40mg 90tab take 1 Trisha s tablet by Ethan - mouth once M.D. 09/06 Furosemide 06/16 Hx Tablets 20mg 10tab 1/2 tab po 272.9 Trisha /2012 s every day Ethan - for 5 M.D. 06/16 days. september contine for 10 days if swelling is not gone Sertraline HCL 06/16 Hx Tablets 100mg 30tab 1 po qd Trisha /2012 s Charlie Long.Srinivasan 05/09 Furosemide Hx Tablets 20mg 60tab 1 po qam Trisha / s Charlie Long M.DTangela 12/04 Sertraline HCL Hx Tablets 100mg 90tab 1 po qd Unknown /0000 s - 06/16 Sertraline Hx Tablets 100 30tab 1 po qd Gigante, /0000 s Artis - 06/16 Pravastatin Hx Tablets 100mg 30tab 1 tablet Unknown Sodium /0000 s once daily - at bedtime 07/17 Furosemide Hx Tablets 20mg 30tab take 1 Trisha / s tablet Charlie Long every M.D. 05/09 Bupropion HCL SR Hx Tablets 200mg 30tab 1 by mouth Ethan, / s qd Charlie Rico MD 06/12 Tramadol HCL Hx Tablets 50mg 50tab four times Unknown /0000 s a day as - needed 03/18 Trazodone HCL 00 Hx Tablets 50mg 30tab 1-2 tablet Emily /0000 s at bedtime Charlie Carr as needed M.D. 08/22 Folic Acid Hx Tablets 400mcg take one Unknown /0000 tablet by - mouth 10/21 every day /2017 (supplemen t) Vitamin C Plus 00 Hx Tablets 1000mg 1 by mouth Unknown /0000 1 time - week;ly 08/22 Vitamin D2 00/00 Hx Tablets 50,000Uni 1 by mouth Unknown /0000 ts once a - week for 8 Immunizations CPT Code Status Date Vaccine Lot # [id number] Given 01/16/2018 Influenza Virus Vaccine, Quadrivalent, Split, [id number] Preservative Free 61613 Given 07/18/2017 Pneumonia Vaccine [id number] 98550 Given 01/29/2017 Influenza Virus Vaccine, Quadrivalent, Split, [id number] Preservative Free 89263 Given 08/29/2016 Tdap - Tetanus/Diptheria/Acellular Pertussis [id number] 80265 Given 08/29/2016 Pneumococcal Conjugate Vaccine 13 Valent For [id number] Intramuscular Use 00427 Given 01/27/2016 Influenza Virus Vaccine, Quadrivalent, Split, [id number] Preservative Free 37635 Given 06/18/2015 Influenza Virus Vaccine, Quadrivalent, Split, [id number] Preservative Free 01223 Given 02/27/2014 Flu Vaccine Split Virus Preservative Free For [id number] Indiv 3Yr Older 98350 Given 02/18/2013 Flu Vaccine Split Virus Preservative Free For [id number] Indiv 3Yr Older Vital Signs Date Vital Result Comment 04/16/2018 1:07pm Height 61.7 inches 5'1.70" Weight [...] Result H/L Range Note Laboratory test 04/09/2018 [facility] B-Type Natriuretic 14 pg/ mL <=[address] [place] [address] [phone] TSH (Thyroid Stim Horm) 3.47 mcIU/mL N 0.34-5.60 Laboratory test 04/09/2018 [facility] Hemoglobin A1c 5.9 % High 4.0-5.[address] (Glyco HGB) [place] [address] [phone] Laboratory test 02/04/2018 [facility] T3 Free 3.80 N 2.5-3.[address] pg/[place] [address] [phone] Free T4 (Free Thyroxine) 0.83 ng/dL N 0.61-1.12 TSH (Thyroid Stim Horm) 3.83 mcIU/mL N 0.34-5.60 Laboratory test 01/16/2018 [facility] B-Type Natriuretic 17 pg/ mL [address] [place] [address] [phone] TSH (Thyroid Stim Horm) 8.41 mcIU/mL High 0.34-5.60 Free T4 (Free Thyroxine) 0.59 ng/dL Low 0.61-1.12 T3 Free 3.40 pg/mL N 2.5-3.9 Thyroperoxidase AB 2008.75 IU/mL High <9 Urine Microalbumin 01/16/2018 [facility] Ur Microalbumin 73.[address] (mg/L) [place] [address] [phone] Urine Creatinine 135.34 mg/dL Urine Microalbumin/Creatinine 54.6 High <31 Ua Routine 01/16/2018 [facility] Ua Specific [place] 1.020 Ua PH 5 Ua Color yellow Ua Appera cloudy Ua WBC ++ Ua Protein trace Ua Glucose norm Ua Ketones - Ua Bilirubin - Ua Urobilinogen norm Ua Nitrite + Ua Occult Blood 50 Laboratory test 10/29/2017 [facility] Hemoglobin A1c 6.3 % High 4.0-5.6 [address] [place] [address] [phone] Lipid Profile 07/19/2017 [facility] Triglycerides 204 5 (Trig/Chol/HDL) [address] mg/[place] [address] [phone] Cholesterol 148 mg/dL 6 HDL Cholesterol 34.4 mg/dL 7 LDL Cholesterol 73 mg/dL 8 Laboratory test 07/18/2017 [facility] In House Hemoglobin A1c 6.6 5-7 finding Laboratory test 01/29/2017 [facility] In House Hemoglobin A1c 6.0 5-7 finding Laboratory test 08/29/2016 [facility] Cytology SEE RESULT [address] [place] [address] [phone] Urine Microalbumin 08/29/2016 [facility] Urine Creatinine 92.71 mg/dL N Random [address] [place] [address] [phone] Ur Microalbumin (mg/L) < 15.0 mg/L N Urine Microalbumin/Creatinine TNP ug/mg N <31 10 Basic Metabolic Panel 08/26/2016 [facility] Sodium 135 mmol/L N 133-[address] [place] [address] [phone] Potassium 4.4 mmol/L N 3.5-5.0 Chloride 106 mmol/L N 101-111 Co2 Carbon Dioxide 27 mmol/L N 22-32 Anion Gap 2 mmol/L N 2-11 Glucose 123 mg/dL High 70-100 Blood Urea Nitrogen 13 mg/dL N 6-24 Creatinine 0.92 mg/dL N 0.51-0.95 BUN/Creatinine Ratio 14.1 N 8-20 Calcium 8.7 mg/dL N 8.6-10.3 Egfr Non- 65.2 N >60 Egfr 83.8 N >60 11 Lipid Profile 08/26/2016 [facility] Triglycerides 164 mg/dL N 12 (Trig/Chol/HDL) [address] [place] [address] [phone] Cholesterol 191 mg/dL N 13 HDL Cholesterol 31.2 mg/dL N 14 LDL Cholesterol 127 mg/dL N 15 Laboratory test 08/26/2016 [facility] Hemoglobin A1c 6.4 % High Less than [address] (Glyco HGB) 6.0 [place] [address] [phone] CBC Auto Diff 08/26/2016 [facility] White Blood 7.2 N 3.5- 10.[address] Count 10^3/[place] [address] [phone] Red Blood Count 5.35 10^6/uL N 4.0-5.4 [...] % 0.1 N Comp Metabolic Panel 01/21/2016 [facility] Sodium 139 mmol/L N 133-[address] [place] [address] [phone] Potassium 4.1 mmol/L N 3.5-5.0 Chloride 107 [...] 93.5 N >60 17 Laboratory test 01/21/2016 [facility] Hemoglobin A1c 6.1 % High Less [address] (Glyco HGB) than 6.0 [place], [place] [id number] [phone] Lipid Profile 12/04/2015 [facility] Triglycerides 133 N 19 (Trig/Chol/HDL) [address] mg/dL [place], [place] [address] [phone] Cholesterol 157 mg/dL N 20 HDL Cholesterol 28.8 mg/dL N 21 LDL Cholesterol 102 mg/dL N 22 Herpes Simplex 12/04/2015 [facility] Herpes Simplex Negative N Negative Type 1&[address] Virus I IgG AB [place], [place] [id number] [phone] Herpes Simplex Virus II IgG AB Positive N Negative 23 Laboratory 12/04/2015 [facility] HIV 1&2 AB Nonreactive N Nonreactive 24 test finding [address] [place] [address] Referred [phone] Laboratory 08/27/2015 [facility] Cytology SEE RESULT 25 test finding [address] BEL[address] [place], [place] [address] [phone] HPV Rna Ww/Reflex Genotype Negative N Negative 26 Lipid Profile 08/21/2015 [facility] Triglycerides 193 mg/dL N 27 (Trig/Chol/HDL) [address] [place], [place] [phone] Cholesterol 227 mg/dL N 28 HDL Cholesterol 30.6 mg/dL N 29 LDL Cholesterol 158 mg/dL N 30 Comp Metabolic Panel 08/21/2015 [facility] Sodium 136 mmol/L N 133-145 [address] [place] [address] [phone] Potassium 4.5 mmol/L N 3.5-5.0 Chloride 107 [...] 91.0 N >60 31 Laboratory test 06/18/2015 [facility] Hemoglobin A1c 5.9 5-7 finding Laboratory test 10/16/2014 [facility] Hemoglobin A1c 6.1 5-7 finding Lipid Profile 10/13/2014 [facility] Triglycerides 222 mg/dL N 32 (Trig/Chol/HDL) [address] [place] [address] [phone] Cholesterol 196 mg/dL N 33 HDL Cholesterol 33.4 mg/dL N 34 LDL Cholesterol 118 mg/dL N 35 Comp Metabolic Panel 10/13/2014 [facility] Sodium 137 mmol/L N 133-145 [address] [place] [address] [phone] Potassium 4.3 mmol/L N 3.5-5.0 Chloride 103 [...] N >60 36 Urine Culture And 02/27/2014 [facility] Urine Culture (SEE NOTE ) 37 Sensitivities [address] [place] [address] [phone] Ua Routine 02/27/2014 [facility] Ua Specific 1.025 [place] Ua PH 5.0 Ua Color yellow Ua Appera sl turbid Ua WBC small Ua Protein negative Ua Glucose negative Ua Ketones negative Ua Bilirubin negative Ua Urobilinogen negative Ua Nitrite negative Ua Occult Blood 3+ (large) Lipid Profile 02/14/2014 [facility] Triglycerides 129 mg/dL N 38, 39 (Trig/Chol/HDL) [address] [place] [address] [phone] Cholesterol 160 mg/dL N 40 HDL Cholesterol 33.9 mg/dL N 41 LDL Cholesterol 100 mg/dL N 42 Lipid Profile 04/26/2013 [facility] Triglycerides 186 mg/dL 40-200 (Trig/Chol/HDL) [address] [place] [address] [phone] Cholesterol 180 mg/dL Less than 200 HDL Cholesterol 33 mg/dL Low 40-60 43 Cholesterol/HDL Ratio 5.5 Average High 1-4.44 LDL Cholesterol 109.8 High Less Than 100 44 Urine Culture And 02/27/2013 [facility] Urine Culture (SEE NOTE ) 45 Sensitivities [address] [place] [address] [phone] Ua Routine 02/27/2013 [facility] Ua Specific 1.020 [place] Ua PH 5 Ua Color brown Ua Appera clear Ua WBC positive Ua Protein positive Ua Glucose neg Ua Ketones neg Ua Bilirubin neg Ua Urobilinogen neg Ua Nitrite neg Ua Occult Blood positive Ua Routine 02/18/2013 [facility] Ua Specific [place] 1.015 Ua PH 5.0 Ua Color yellow Ua Appera clear Ua WBC small Ua Protein trace Ua Glucose neg Ua Ketones neg Ua Bilirubin small Ua Urobilinogen neg Ua Nitrite neg Ua Occult Blood small Ua W/Microscopic 02/18/2013 [facility] Urine Color Yellow [address] [place] [address] [phone] Urine Appearance Clear Urine Specific [place] 1.018 1.010-1.030 Urine Esterase 1+ Abnormal Negative [...] /lpf None Seen Urine Culture And 02/18/2013 [facility] Urine Culture (SEE NOTE ) 46 Sensitivities [address] [place] [address] [phone] Lipid Profile 10/23/2012 [facility] Triglycerides 167 mg/dL 40-20 (Trig/Chol/HDL) [address] [place] [address] [phone] Cholesterol 156 mg/dL Less than 200 HDL Cholesterol 29 mg/dL Low 40-60 47 Cholesterol/HDL Ratio 5.4 Average High 1-4.44 LDL Cholesterol 93.6 Less Than 100 48 Liver Function 06/29/2012 [facility] Total Protein 5.8 g/dL Low 6.2-8.1 Panel [address] [place] [address] [phone] Albumin 3.4 g/dL Low 3.6-5.4 Globulin 2.4 g/dL 2-4 Albumin/Globulin Ratio 1.4 1-3 Total Bilirubin 0.3 mg/dL Low 0.4-1.5 Direct Bilirubin 0.1 mg/dL 0.1-0.5 Indirect Bilirubin 0.2 mg/dL Low 0.3-1.0 Alkaline Phosphatase 55 U/L 30-110 Alt 16 U/L 14-54 Ast 15 U/L 12-42 Lipid Profile 06/29/2012 [facility] Triglycerides 76 mg/dL 40 -200 (Trig/Chol/HDL) [address] [place], [place] [address] [phone] Cholesterol 170 mg/dL Less than 200 HDL Cholesterol 31 mg/dL Low 40-60 49 Cholesterol/HDL Ratio 5.5 Average High 1-4.44 LDL Cholesterol 123.8 mg/dL High Less Than 100 50 Laboratory test 06/25/2012 [facility] Affirm (SEE NOTE) [address] [place] [address] Probe [phone] Cytology 06/25/2012 [facility] Cy RUN DATE: [address] [place] [address] NOTE> [phone] GC/Chlamydia 06/25/2012 [facility] GC/Chlamydia (SEE NOTE) [address] [place] [address] [phone] Liver Function 10/28/2011 [facility] Total Protein 5.8 GM/DL Low 6.2-8. Panel [address] [place] [address] [phone] Albumin 3.4 GM/DL Low 3.6-5.4 Globulin 2.4 GM/DL 2-4 Albumin/Globulin Ratio 1.4 1-3 Bilirubin Total 0.6 mg/dL 0.4-1.5 54 Bilirubin Direct 0.1 mg/dL 0.1-0.5 Indirect Bilirubin 0.5 mg/dL 0.3-1.0 55 Alkaline Phosphatase 50 U/L 30-110 Alt (SGPT) 20 U/L 14-54 Ast (Sgot) 18 U/L 12-42 Lipid Profile 10/28/2011 [facility] Triglyceride 157 mg/dL 40 -200 (Trig/Chol/HDL) [address] [place] [address] [phone] Cholesterol 203 mg/dL High Less Than 200 56 High Density Lipoprotein 28 mg/dL Low 40-60 57 Cholesterol/HDL Ratio 7.25 AVERAGE High 1-4.44 Low Density Lipoprotein 144 mg/dL High Less Than 100 58 Type And Screen 09/25/2011 [facility] Patient Blood O POSITIVE 59 (Pre-Adm) [address] [place] [address] [phone] Antibody Screen NEGATIVE Specimen Discard Date 10/09/11 60 Comp Metabolic Panel 09/25/2011 [facility] Sodium 139 mmol/L 135-[address] [place] [address] [phone] Potassium 4.2 mmol/L 3.5-5.0 Chloride 109 mmol/L [...] > 60 63 CBC Auto Diff 09/25/2011 [facility] White Blood 6.9 CUMM 4.8- 10.[address] [place] [address] [phone] Red Cell Count 4.31 CUMM 4.2-5.4 Hemoglobin [...] Abs Basophils 0 0-0.2 Liver Function 09/02/2011 [facility] Total Protein 6.3 GM/DL 6.2-8.1 Panel [address] [place] [address] [phone] Albumin 3.5 GM/DL Low 3.6-5.4 Globulin 2.8 GM/DL 2-4 Albumin/Globulin Ratio 1.3 1-3 Bilirubin Total 0.6 mg/dL 0.4-1.5 64 Bilirubin Direct 0.1 mg/dL 0.1-0.5 Indirect Bilirubin 0.5 mg/dL 0.3-1.0 65 Alkaline Phosphatase 58 U/L 30-110 Alt (SGPT) 18 U/L 14-54 Ast (Sgot) 16 U/L 12-42 Lipid Profile 09/02/2011 [facility] Triglyceride 157 mg/dL 40 -200 (Trig/Chol/HDL) [address] [place] [address] [phone] Cholesterol 251 mg/dL High Less Than 200 66 High Density Lipoprotein 38 mg/dL Low 40-60 67 Cholesterol/HDL Ratio 6.61 AVERAGE High 1-4.44 Low Density Lipoprotein 182 mg/dL High Less Than 100 68 Laboratory test 09/02/2011 [facility] Potassium 4.2 mmol/L 3.5-5.0 finding [address] [place] [address] [phone] Laboratory test 06/16/2011 [facility] Thyroxine Free 0.76 ng/dL 0.61-1.24 finding [address] [place] [address] [phone] TSH 2.08 MIU/ML 0.34-5.60 1 Therapeutic target for the treatment of diabetes mellitus patients is <7% HBA1C, and in selective patients <6.0%. Please refer to [employer] diabetic care guidelines for further information. 2 >100 to <200 pg/mL: likely compensated congestive heart failure (CHF) 200 to 400 pg/mL: likely moderate CHF >400 pg/mL: likely moderate to severe CHF 3 [id number] 4 Therapeutic target for the treatment of diabetes mellitus patients is <7% HBA1C, and in selective patients <6.0%. Please refer to [employer] diabetic care guidelines for further information. 5 Desirable: <150 Borderline High: 150-199 High: 200-499 Very High: >500 6 Desirable: <200 Borderline High: 200-239 High: >239 7 Low: <40 Desirable: 40-60 High: >60 8 Desirable: <100 Near Optimal: 100-129 Borderline High: 130-159 High: 160-189 Very High: >189 9 SEE RESULT BELOW Name: TIERRA JUARES : [address]: Emily Carr MD Acct: [id number] Unit: [id number] AGE: 46 Location: [facility] Re08/29/16 SEX: F Status: REG REF SPEC: [id number] RAMONE: 08/29/16-[address] [facility] [address]: Emily Carr MD REQ: [id number] RECD: 08/29/16 STATUS: SOUT _ ORDERED: IMAGE ANALYSIS, HPV 16/18 GENE COMMENTS: [id number] FINAL DIAGNOSIS Negative for Intraepithelial lesion or [...] procedure in 2010. Signed (signature on file) Ben VALDO Duron(ASCP) 08/30 1352 This Pap test was evaluated with the assistance of the The [employer] Test Imaging System. Due to cytologic findings at the radiation control technician microscope, comprehensive manual rescreening by a Department Clerk may be required. The Pap Smear [...] performed at Main Lab DEPARTMENT OF PATHOLOGY, [address] [place] [address] Kip Rueda M.D. Director [facility] # [id number] Unable to calculate due to low [...] and in selective patients <6.0%.Please refer to [employer] Diabetic care guidelines for further [...] and in selective patients <6.0%.Please refer to [employer] Diabetic care guidelines for further information. 19 Desirable <150 Borderline high 150-199 High 200-499 Very High >500 20 Desirable <200 Borderline high 200-239 High >239 21 Low <40 Desirable: 40-60 High: >60 22 Desirable: <100 mg/dL Near Optimal: 100-129 mg/dL Borderline High: 130-159 mg/dL High: 160-189 mg/dL Very High: >189 mg/dL 23 Test Performed by: [address] [address] [place] [place]: Judd Isaac II, M.D., Ph.D. 24 It [...] [address]: Trisha Long MD Acct: [id number] Unit: [id number] AGE: 45 Location: [facility] Re08/27/15 SEX: F Status: REG REF SPEC: [id number] RAMONE: 08/27/15-[address] [facility] [address]: Trisha Long MD REQ: [id number] RECD: 08/27/158402 STATUS: SOUT _ ORDERED: IMAGE ANALYSIS, HPV/Thin [...] Signed (signature on file) VALDO Diallo(ASCP) 08/29 1511 This Pap test was evaluated with the assistance of the [employer] Test Imaging System. Due to cytologic findings at the radiation control technician microscope, comprehensive manual rescreening by a Department Clerk may be required. The Pap Smear [...] performed at Main Lab DEPARTMENT OF PATHOLOGY, [address] [place] [address] Kip Rueda M.D. Director [facility] # [id number] 26 The high-risk HPV types detected by [...] <15 (or dialysis) 37 RUN DATE: 03/01/14 [facility] LAB LIVE PAGE 1 RUN TIME: 4035 [address] [place], [place] [address] Specimen Inquiry Name: TIERRA JUARES : [address]: Trisha Long MD Acct: [id number] Unit: [id number] AGE: 43 Location: [facility] Re02/27/14 SEX: F Status: REG REF SPEC: [id number] RAMONE: 02/27/[address] [facility] [address]: Trisha Long MD REQ: [id number] RECD: 02/27/14 STATUS: COMP _ SOURCE: URINE SPDESC: ORDERED: Urine Culture QUERIES: Medent Number [id number] Procedure Result Verified Site Urine Culture Final 03/01/14- 1054 ML Organism 1 NORMAL SHAW [place] Count >100,000 (Many) CFU/ML END OF REPORT * ML=Testing performed at Main Lab DEPARTMENT OF PATHOLOGY, [address] [place] [address] Kip Rueda M.D. Director [facility] # [id number] FASTING 39 Desirable <150 Borderline high [...] than 189 mg/dL 45 RUN DATE: 03/01/13 [facility] LAB LIVE PAGE 1 RUN TIME: [address] [place] [address] Specimen Inquiry Name: TIERRA JUARES : [address]: Trisha Long MD Acct: [id number] Unit: [id number] AGE: 42 Location: [facility] Re02/27/13 SEX: F Status: REG REF SPEC: [id number] RAMONE: 02/27/[address] [facility] [address]: Trisha Long MD REQ: [id number] RECD: 02/27/131279 STATUS: COMP _ SOURCE: URINE SPDESC: ORDERED: Urine Culture QUERIES: Medent Number [id number] Procedure Result Verified Site Urine Culture Final 03/01/13- 951 ML Organism 1 NORMAL SHAW [place] Count 50-75,000 (Many) CFU/ML END OF REPORT * ML=Testing performed at Main Lab DEPARTMENT OF PATHOLOGY, [facility] [place], [place] [address] Kip Rueda M.D. Director [facility] Permit #[id number] RUN DATE: 02/20/13 [facility] LAB LIVE PAGE 1 RUN TIME: 902 [facility] [place], [place] [address] Specimen Inquiry Name: TIERRA UJARES : [address]: Trisha Long MD Acct: [id number] Unit: [id number] AGE: 42 Location: [facility] Re02/18/13 SEX: F Status: REG REF SPEC: [id number] RAMONE: 02/18/13-[address] [facility] [address]: Trisha Long MD REQ: [id number] RECD: 02/18/13 STATUS: COMP _ SOURCE: URINE SPDESC: ORDERED: Urine Culture Procedure Result Verified Site Urine Culture Final 02/20/13- 0903 ML Organism 1 ESCHERICHIA COLI [place] Count 25-50,000 (Moderate) CFU/ML Organism 2 NORMAL SHAW [place] Count 10-25,000 (Moderate) CFU/ML 1. ESCHERICHIA COLI [...] performed at Main Lab DEPARTMENT OF PATHOLOGY, [facility] [place], [place] [address] Kip Rueda M.D. Director [facility] Permit #[id number] HDL Interpretation: Undesirable: High Risk: Less [...] than 189 MG/DL 51 RUN DATE: 06/26/12 [facility] LAB LIVE PAGE 1 RUN TIME: [address] [place] [address] Specimen Inquiry Name: TIERRA JUARES : [address]: Trisha Long MD Acct: [id number] Unit: [id number] AGE: 41 Location: [facility] Re06/25/12 SEX: F Status: REG REF SPEC: [id number] RAMONE: 06/25/12-[address]: Trisha Long MD REQ: [id number] RECD: 06/25/12-1918 STATUS: COMP _ SOURCE: VAGINAL SPDESC: ORDERED: Affirm QUERIES: Medent Number [id number] Procedure Result Verified Site Affirm Vaginal DNA [...] performed at Main Lab DEPARTMENT OF PATHOLOGY, [facility] [place], [place] [address] Kip Rueda M.D. Director [facility] Permit #[id number] RUN DATE: 06/26/12 [facility] LAB LIVE PAGE 1 RUN TIME: [address] [place] [address] Specimen Inquiry Name: TIERRA JUARES : [address]: Trisha Long MD Acct: [id number] Unit: [id number] AGE: 41 Location: [facility] Re06/25/12 SEX: F Status: REG REF SPEC: [id number] RAMONE: 06/25/12-[address] [facility] [address]: Trisha Long MD REQ: [id number] RECD: 06/26/1242 STATUS: SOUT _ ORDERED: IMAGE ANALYSIS FINAL [...] was evaluated with the assistance of the Theorem Test Imaging System. Due to cytologic findings at the radiation control technician microscope, comprehensive manual rescreening by a Department Clerk may be required. The Pap Smear [...] performed at Main Lab DEPARTMENT OF PATHOLOGY, [address] [place] [address] Kip Rueda M.D. Director [facility] Permit #[id number] RUN DATE: 06/28/12 [facility] LAB LIVE PAGE 1 RUN TIME: [address] [place] [address] Specimen Inquiry Name: JUARESTIERRA HARTLEY : [address]: Trisha Long MD Acct: [id number] Unit: [id number] AGE: 41 Location: [facility] Re06/25/12 SEX: F Status: REG REF SPEC: [id number] RAMONE: 06/25/12-[address]: Trisha Long MD REQ: [id number] RECD: 06/25/12 STATUS: COMP _ SOURCE: THIN SPDESC: ORDERED: DINESH/Mariama RNA QUERIES: Medent Number [id number] Procedure Result Verified Site Chlamydia Trachomatis RNA [...] performed at Main Lab DEPARTMENT OF PATHOLOGY, [facility] [place], [place] [address] Kip Rueda M.D. Director [facility] Permit #[id number] RUN DATE: 06/28/12 [facility] LAB LIVE PAGE 2 RUN TIME: 9473 [facility] [place], [place] [address] Specimen Inquiry Patient: TIERRA JUARES [id number] (Continued) Specimen: [id number] Collected: 06/25/12 Received: 06/25/12 (Continued) Procedure Result [...] performed at Main Lab DEPARTMENT OF PATHOLOGY, [address] [place] [address] Kip Rueda M.D. Director [facility] Permit #[id number] A metabolite of Naproxen, O-desmethylnaproxen, has [...] has been shown to interfere with the Jendrassik-Bluewell method for measuring total bilirubin. Samples from [...] has been shown to interfere with the Jendrassik-Bluewell method for measuring total bilirubin. Samples from [...] MG/DL Procedures Date Code Description Status 01/28/2018 240058639 Diabetic Retinal Eye Exam Completed 07/24/2017 [id number] Mammogram Completed 12/20/2016 48195 Sleep Study Unattended,HRT Rate,Oxygen Sat,Resp Completed Effort/Airflow 09/12/2016 834495178 Diabetic Retinal Eye Exam Completed 09/08/2016 84882413 Mammogram Completed 09/02/2015 [id number] Mammogram Completed 06/24/2014 [id number] Mammogram Completed 06/19/2014 62648 Carpal Tunnel Release Completed 03/19/2014 32228 Rad Exam; Hand Comp Completed 03/19/2014 82955 Rad Exam; Hand Comp Completed 08/19/2012 [id number] Mammogram Completed 08/18/2011 [id number] Mammogram Completed Encounters Type Date Location Provider Dx Diagnosis Office Visit 01/16/2018 [facility] Internal Emily Bruno, Z23 Encounter for 1:00p Kyra Guerra M.D. 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 mellitus without [place] complications E78.2 Mixed hyperlipidemia Z23 Encounter for immunization F17.210 Nicotine dependence, cigarettes, uncomplicated N64.4 Mastodynia Office Visit 07/16/2017 [facility] G47.33 Obstructive sleep 10:30a [facility] Suazo RN, apnea (adult) [facility] MARKET DEVELOPMENT SPECIALIST-BC (pediatric) F17.210 Nicotine dependence, cigarettes, uncomplicated Z68.41 Body mass index (BMI) 40.0-44.9, adult Office Visit 04/16/2017 [facility] G47.33 Obstructive sleep 10:30a [facility] Suazo RN, apnea (adult) [facility] MARKET DEVELOPMENT SPECIALIST-BC (pediatric) F17.210 Nicotine dependence, cigarettes, uncomplicated E66.9 Obesity, unspecified Z68.41 Body mass index (BMI) 40.0-44.9, adult Office Visit 02/14/2017 [facility] G47.33 Obstructive sleep 11:30a [facility] Suazo, DNP, RN, apnea (adult) [facility] (pediatric) Z68.41 Body mass index (BMI) 40.0-44.9, adult F17.210 Nicotine dependence, cigarettes, uncomplicated E66.9 Obesity, unspecified Office Visit 01/29/2017 11:50a [facility] Internal Emily E11.9 Type 2 diabetes Kyra Carr M.D. mellitus without [place] complications B35.3 Tinea pedis F17.210 Nicotine dependence, cigarettes, uncomplicated Z23 Encounter for immunization E66.9 Obesity, unspecified Office Visit 01/03/2017 [facility] Nu G47.33 Obstructive sleep 11:45a [facility] T[facility] Suazo RN, apnea (adult) [facility] (pediatric) R09.02 Hypoxemia E66.9 Obesity, unspecified Z68.39 Body mass index (BMI) 39.0-39.9, adult F17.210 Nicotine dependence, cigarettes, uncomplicated Office Visit 12/18/2016 11:30a [facility] Deandra Henry, R06.83 [facility] R06.81 Apnea, not elsewhere classified R40.0 Somnolence G47.8 Other sleep disorders Office Visit 10/31/2016 9:10a [facility] Internal Emily A87.9 Viral meningitis , Kyra Carr M.D. unspecified [place] G47.00 Insomnia, unspecified F17.210 Nicotine dependence, cigarettes, uncomplicated Office Visit 08/29/2016 11:10a [facility] Internal Emily Z00.01 Encounter for Kyra Carr M.D. general adult [place] medical exam w abnormal findings E11.9 Type [...] neoplasm of cervix Office Visit 01/27/2016 10:50a [facility] Internal Emilyrebecca Carr, R73.01 Impaired Kyra Guerra M.D. fasting glucose [place] F17.210 Nicotine dependence, cigarettes, uncomplicated F43.21 Adjustment disorder with depressed mood Z23 Encounter for immunization Office Visit 12/21/2015 11:50a [facility] Internal Emily E78.5 Hyperlipidemia, Kyra Carr M.D. unspecified [place] R60.9 Edema, unspecified R73.01 Impaired fasting glucose F17.210 Nicotine dependence, cigarettes, uncomplicated Office Visit 10/15/2015 11:40a [facility] Internal Trisha E78.5 Hyperlipidemia, Kyra Long M.D. unspecified [place] R73.01 Impaired fasting glucose Z11.59 Encounter for screening for other viral diseases Office Visit 06/18/2015 10:00a [facility] Internal Trisha Long, Z23 Encounter for Medicine - M.D. immunization [place] F43.21 Adjustment disorder with depressed mood G47.00 Insomnia, unspecified E78.5 Hyperlipidemia, unspecified R73.01 Impaired fasting glucose R73.01 Impaired fasting glucose Office Visit 01/15/2015 11:40a [facility] Internal Trisha Long, 682.6 Cellulitis & Medicine - M.D. Abscess Leg [place] Except Foot 790.21 Impaired Fasting Glucose 477.9 Rhinitis Allergic Cause Unspec Office Visit 11/12/2014 11:45a Orthopedic Sammie [place], 354.0 Carpal Tunnel Services Of M.D. Syndrome C.M.A. Office Visit 11/10/2014 2:40p [facility] Internal Trisha Long, 790.21 Impaired Medicine - M.D. Fasting Glucose Dixon 782.3 Edema Office Visit 10/16/2014 2:40p [facility] Internal Trisha Long, 790.21 Impaired Medicine - M.D. Fasting Glucose [place] 272.9 Lipoid Metabolism Disorders Unspec 782.3 Edema Office Visit 10/08/2014 10:00a Orthopedic Sammie [place], 354.0 Carpal Tunnel Services Of M.D. Syndrome C.M.A. Office Visit 09/15/2014 12:40p [facility] Internal Trisha Long, 729.81 Swelling Of Medicine - M.D. Limb [place] 782.3 Edema Office Visit 06/12/2014 2:40p [facility] Internal Trisha Long, 309.0 Adjustment Medicine - M.D. Disorder With [place] Depression 272.9 Lipoid Metabolism Disorders Unspec V76.19 Screening Breast Exam Malignant Neoplasms Other Office Visit 05/28/2014 11:45a Orthopedic Sammie [place], 354.0 Carpal Tunnel Services Of M.D. Syndrome C.M.A. Office Visit 03/19/2014 8:30a Orthopedic Sammie [place], 354.0 Carpal Tunnel Services Of M.D. Syndrome C.M.A. Office Visit 03/18/2014 8:40a [facility] Internal Trisha Long, 842.01 Sprains & Medicine - M.D. Strains Wrist & Dixon Hand Carpal (Joint) Office Visit 03/05/2014 9:20a [facility] Internal Trisha Long, 842.01 Sprains & Medicine - M.D. Strains Wrist & [place] Hand Carpal (Joint) Office Visit 02/27/2014 2:40p [facility] Internal Trisha Long, 788.1 Dysuria Medicine - M.D. Dixon 842.01 Sprains & Strains Wrist & Hand Carpal (Joint) 844.9 Sprains & Strains Knee & Leg Unspec 272.9 Lipoid Metabolism Disorders Unspec V04.81 Need For Prophylactic Vaccination & Inoculation/Influenza Office Visit 02/06/2014 4:40p [facility] Internal Trisha Long, 842.01 Sprains & Strains Medicine - M.D. Wrist & Hand [place] Carpal (Joint) Office Visit 11/25/2013 4:00p [facility] Internal Trisha Long, 214.1 Lipoma Other Skin Medicine - M.D. And Subcutaneous Dixon Tissue 272.9 Lipoid Metabolism Disorders Unspec Office Visit 10/20/2013 4:00p [facility] Internal Will Knowles 784.0 Headache Kyra Scott M.D. Dixon Office Visit 08/26/2013 2:40p [facility] Internal Trisha Long, 847.2 Sprains & Medicine - M.D. Strains Lumbar Dixon 309.0 Adjustment Disorder With Depression 272.9 Lipoid Metabolism Disorders Unspec Office Visit 05/26/2013 4:00p [facility] Internal Trisha Long, 309.0 Adjustment Medicine - M.D. Disorder With Dixon Depression 272.9 Lipoid Metabolism Disorders Unspec Office Visit 04/25/2013 1:40p [facility] Internal Trisha Long, 309.0 Adjustment Medicine - M.D. Disorder With [place] Depression 272.9 Lipoid Metabolism Disorders Unspec Office Visit 02/27/2013 11:40a [facility] Internal Trisha Long, 599.0 UTI Urinary Medicine - M.D. Tract Infection Dixon Site Not Spec Office Visit 02/18/2013 1:00p [facility] Internal Trisha Long, 788.1 Dysuria Medicine - M.D. Dixon 309.0 Adjustment Disorder With Depression v04.81 Need For Prophylactic Vaccination & Inoculation/Influenza Office Visit 01/16/2013 1:40p [facility] Internal Trisha Long, 309.0 Adjustment Medicine - M.D. Disorder With [place] Depression 477.0 Rhinitis Allergic Due To Pollen 272.9 Lipoid Metabolism Disorders Unspec Office Visit 12/27/2012 2:40p [facility] Internal Trisha Long, 461.8 Sinusitis Acute Medicine - M.D. Other Dixon 309.0 Adjustment Disorder With Depression 272.9 Lipoid Metabolism Disorders Unspec Office Visit 09/17/2012 2:00p [facility] Internal Trisha 726.32 Epicondylitis Kyra Long M.D. Lateral Dixon 841.8 Sprains & Strains Elbow & Forearm Other Spec Sites 840.9 Sprains & Strains Shoulder & Upper Arm Unspec 309.0 Adjustment Disorder With Depression 272.9 Lipoid Metabolism Disorders Unspec Office Visit 06/25/2012 3:00p [facility] Internal Trisha Long, V76.19 Screening Breast Medicine - M.D. Exam Malignant [place] Neoplasms Other V76.2 Screening Malignant Neoplasm Cervix 272.9 Lipoid Metabolism Disorders Unspec V72.31 Routine Heat Treat Supervisor Examination Office Visit 05/09/2012 4:00p [facility] Internal Trisha Long, 272.9 Lipoid Metabolism Medicine - M.D. Disorders Unspec Dixon 309.0 Adjustment Disorder With Depression Office Visit 12/05/2011 4:40p [facility] Internal Trisha Long, 272.9 Lipoid Metabolism Medicine - M.D. Disorders Unspec Dixon 309.0 Adjustment Disorder With Depression Office Visit 07/18/2011 3:00p [facility] Internal Trisha Long, 461.9 Sinusitis Acute Medicine - M.D. Unspec Dixon 278.00 Obesity Unspec 786.03 Apnea 272.9 Lipoid Metabolism Disorders Unspec Office Visit 06/16/2011 2:20p [facility] Internal Trisha Long, 309.0 Adjustment Medicine - M.D. Disorder With [place] Depression 272.9 Lipoid Metabolism Disorders Unspec 278.00 Obesity Unspec 782.3 Edema Plan of Treatment Future Appointment(s):10/15/2018 1:30 pm - Nu Suazo DNP, RN, MARKET DEVELOPMENT SPECIALIST-BC at [facility]04/18/2018 10:10 am - Emily Carr M.D. at [facility] Internal Medicine - Nulpwfwpi55/11/2018 - Nu Suazo DNP, RN, MARKET DEVELOPMENT SPECIALIST- BCG47.33 Obstructive sleep apnea (adult) (pediatric)New Orders:Sleep-Homecare, Ordered: 04/16/18ollow up:6 monthsRecommendations:Continue PAP device, Benefitting and compliant with treatment. Cleaning Wipe off mask daily (baby wipe-no scent, or warm water) Clean mask, tubing, filter, and water chamber weekly in mild no scent dish soap and water. Hang to dry. If you have any sleepiness while driving you MUST avoid operating a vehicle or machinery. If you have difficulty with your equipment, or need to replace your mask or hoses, please contact your homecare agency. A weight change of 20 pounds or more may have an effect onyour equipment; if you are experiencing problems please call for an appointment. If you have any further questions, please call the [facility] at [phone].A59.811 Nicotine dependence, cigarettes, uncomplicatedRecommendations:Consider setting a quit date. Discussed clock method for cutting down.K13.79 Other lesions of oral mucosaRecommendations:Soft palate/tonsilar growth right side Discuss with primary care a referral to ENT ( ear, nose throat) specialist.Z68.41 Body mass index (BMI) 40.0-44.9, adultRecommendations:Continue with weight loss efforts
--- NOTE | 2018-05-10 19:45 | ED ---
Complex/Multi-Sys Presentation - HPI Summary HPI Summary: This patient is a 47 year old F presenting to [facility] with a chief complaint of throat pain and difficulty swallowing status post tonsil biopsy performed two days ago. Patient rates pain 3/10 in severity that is worsened by swallowing especially while drinking water. Patient additionally report body aches. Pain is not relieved by Ibuprofen. - History Of Current Complaint Chief Complaint: EDThroatPain Time Seen by Provider: 05/10/18 19:37 Hx Obtained From: Patient Onset/Duration: Lasting Days Timing: Constant Severity Currently: Mild Location: Pain At: - throat Aggravating Factor(s): swallowing Associated Signs And Symptoms: Positive: Other - body aches - Allergies/Home Medications Allergies/Adverse Reactions: Allergies Allergy/AdvReac Type Severity Reaction Status Date / Time paroxetine [From Paxil] Allergy Rash Verified 05/10/18 17:16 PMH/Surg Hx/FS Hx/Imm Hx Endocrine/Hematology History: Reports: Hx Diabetes - TYPE II- ON ORAL MEDICATION FOR, Hx Thyroid Disease - ON MEDICATION FOR Cardiovascular History: Denies: Hx Hypertension, Hx Pacemaker/ICD Respiratory History: Reports: Hx Sleep Apnea Denies: Hx Asthma, Hx Chronic Obstructive Pulmonary Disease (COPD) GI History: Denies: Hx Ulcer, Other GI Disorders History: Reports: Hx Kidney Stones - LEFT SIDE CURRENTLY REPORTS NO PROBLEMS WITH Musculoskeletal History: Reports: Hx Arthritis - ?, Other Musculoskeletal History - HX OF TAILBONE FRACTURE WHILE IN GRADE [employer]CHO[employer] Sensory History: Reports: Hx Contacts or Glasses - GLASSES Denies: Hx Hearing Aid Opthamlomology History: Reports: Hx Contacts or Glasses - GLASSES Neurological History: Denies: Other Neuro Impairments/Disorders Psychiatric History: Reports: Hx Anxiety - HX OF RECENTLY, Hx Depression - ON MEDICATION FOR - Cancer History Hx Chemotherapy: No Hx Radiation Therapy: No - Surgical History Surgery Procedure, Year, and Place: TUBAL LIGATION. D/C X2 Hx Anesthesia Reactions: No Infectious Disease History: No Infectious Disease History: Denies: Hx Hepatitis, Hx Human Immunodeficiency Virus (HIV), Traveled Outside the [place] in Last 30 Days - Family History Known Family History: Positive: Hypertension - Social History Alcohol Use: None Substance Use Type: Reports: None Smoking Status (MU): Heavy Every Day Tobacco Smoker Type: Cigarettes Amount Used/How Often: 1 PPD X 30+ YEARS Length of Time of Smoking/Using Tobacco: 30 YRS Have You Smoked in the Last Year: Yes Review of Systems Positive: Sore Throat Positive: Myalgia All Other Systems Reviewed And Are Negative: Yes Physical Exam - Summary Physical Exam Summary: Appearance: Well-appearing, Well-nourished, lying in bed comfortable Skin: Warm, dry, no obvious rash Eyes: sclera anicteric, no conjunctival pallor ENT: mucous membranes moist, well granulated wound to right lewis-tonsillar area without evidence of bleeding or infection Neck: deferred Respiratory: No signs of respiratory distress Cardiovascular: Appears well perfused, pulses are nml Abdomen: deferred Musculoskeletal: Moving all 4 extremities without obvious discomfort Neurological: Awake and alert, mentation is normal, speech is fluent and appropriate Psychiatric: affect is normal, does not appear anxious or depressed Triage Information Reviewed: Yes Vital Signs On Initial Exam: Initial Vitals Temp Pulse Resp BP Pulse Ox 98.0 F 92 17 142/51 100 05/10/18 17:13 05/10/18 17:13 05/10/18 17:13 05/10/18 17:13 05/10/18 17:13 Vital Signs Reviewed: Yes Diagnostics - Vital Signs Vital Signs Temp Pulse Resp BP Pulse Ox 05/10/18 17:13 98.0 F 92 17 142/51 100 - Laboratory Lab Statement: Any lab studies that have been ordered have been reviewed, and results considered in the medical decision making process. Complex Multi-Symp Course/Dx Course Of Treatment: 47 year old F presenting to [facility] with a chief complaint of throat pain and difficulty swallowing status post tonsil biopsy performed two days ago. Pain is unresolved with Ibuprofen. Patient right lewis-tonsillar area is healing well without evidence or bleeding or infection. Patient is not febrile. Patient is given 10ml of Hydrocodone prior to discharge. Patient is discharged with prescription for hydrocodone. - Diagnoses Provider Diagnoses: Postoperative pain Discharge - Sign-Out/Discharge Documenting (check all that apply): Patient Departure - discharge - Discharge Plan Condition: Good Disposition: HOME Prescriptions: HYDROcodone/ACET. 7.5/325 LIQ* [Lortab Elixir 7.5/325 per 15 ml *] 10 ml PO Q6H PRN #60 ml MDD 30 ml PRN Reason: Pain Patient Education Materials: Pain Management After Surgery (GEN) Referrals: Irvin Castellano MD [Medical Doctor] - If Needed - Billing Disposition and Condition Condition: GOOD Disposition: Home - Attestation Statements Document Initiated by Zunilda: Yes Documenting Scribe: Supriya Abreu Provider For Whom Zunilda is Documenting (Include Credential): Alessio Sanders MD Scribe Attestation: ISupriya, scribed for Alessio Sanders MD on 05/11/18 at 0336. Scribe Documentation Reviewed: Yes Provider Attestation: The documentation as recorded by the Supriya joaquin accurately reflects the service I personally performed and the decisions made by meAlessio MD Status of Scribe Document: Viewed
[2018-05-10] MEDS ORDERED: HYDROcodone/ACET. 7.5/325 LIQ* 15 ML UDC PO ONE (19:56)
[2018-05-10 20:26] VITALS: BP 112/48
== END 2018-05-10 20:25 | disposition home or self-care (01) ==
LOC: ED 17:07
DX: G89.18 Other acute postprocedural pain (principal); J02.9 Acute pharyngitis, unspecified; E11.9 Type 2 diabetes mellitus without complications; M79.10 Myalgia, unspecified site; F17.210 Nicotine dependence, cigarettes, uncomplicated
CPT/HCPCS: 99282

== ENCOUNTER 2018-09-23 07:55 | Emergency (ER) | payer MEDICARE, MEDICAID ==
[2018-09-23] MEDS ORDERED: NS 0.9% 1000 ML** 1,000 ML IV ONE (08:06)
[2018-09-23] MEDS ORDERED: Ondansetron INJ* 2 MG/ML VIAL IV ONE (08:06)
[2018-09-23] MEDS ORDERED: Ketorolac INJ* 30 MG/ML 1 ML VIAL IV PUSH ONE (08:06)
--- NOTE | 2018-09-23 08:13 | ED ---
Abdominal Pain/Female - HPI Summary HPI Summary: This patient is a 48 year old F presenting to ED with a chief complaint of L flank pain since 0500 this morning s/p urinating. The patient rates the pain 10/ 10 in severity. Symptoms aggravated by nothing. Symptoms alleviated by nothing. Patient reports N/V x1 [employer]. PMHx of kidney stone. - History of Current Complaint Chief Complaint: EDAbdPain Stated Complaint: LOWER ABD PAIN/VOMITING PER PT Time Seen by Provider: 09/23/18 08:03 Hx Obtained From: Patient Hx Last Menstrual Period: 2 WEEKS AGO Onset/Duration: Sudden Onset, Lasting Hours - since 0500 this morning, Still Present Timing: Constant Severity Initially: Severe Severity Currently: Severe Pain Intensity: 10 Pain Scale Used: 0-10 Numeric Location: Flank - left Aggravating Factor(s): Nothing Alleviating Factor(s): Nothing Associated Signs and Symptoms: Positive: Nausea, Vomiting Allergies/Adverse Reactions: Allergies Allergy/AdvReac Type Severity Reaction Status Date / Time paroxetine [From Paxil] Allergy Rash Verified 09/23/18 08:01 PMH/Surg Hx/FS Hx/Imm Hx Endocrine/Hematology History: Reports: Hx Diabetes - TYPE II- ON ORAL MEDICATION FOR, Hx Thyroid Disease - ON MEDICATION FOR Cardiovascular History: Denies: Hx Hypertension, Hx Pacemaker/ICD Respiratory History: Reports: Hx Sleep Apnea Denies: Hx Asthma, Hx Chronic Obstructive Pulmonary Disease (COPD) GI History: Denies: Hx Ulcer, Other GI Disorders History: Reports: Hx Kidney Stones - LEFT SIDE CURRENTLY REPORTS NO PROBLEMS WITH Musculoskeletal History: Reports: Hx Arthritis - ?, Other Musculoskeletal History - HX OF TAILBONE FRACTURE WHILE IN GRADE SCHOOL Sensory History: Reports: Hx Contacts or Glasses - GLASSES Denies: Hx Hearing Aid Opthamlomology History: Reports: Hx Contacts or Glasses - GLASSES Neurological History: Denies: Other Neuro Impairments/Disorders Psychiatric History: Reports: Hx Anxiety - HX OF RECENTLY, Hx Depression - ON MEDICATION FOR - Cancer History Hx Chemotherapy: No Hx Radiation Therapy: No - Surgical History Surgery Procedure, Year, and Place: TUBAL LIGATION. D/C X2 Hx Anesthesia Reactions: No Infectious Disease History: No Infectious Disease History: Denies: Hx Hepatitis, Hx Human Immunodeficiency Virus (HIV), Traveled Outside the [place] in Last 30 Days - Family History Known Family History: Positive: Hypertension - Social History Alcohol Use: None Substance Use Type: Reports: None Smoking Status (MU): Heavy Every Day Tobacco Smoker Type: Cigarettes Amount Used/How Often: 1 PPD X 30+ YEARS Length of Time of Smoking/Using Tobacco: 30 YRS Have You Smoked in the Last Year: Yes Review of Systems Positive: Abdominal Pain - L flank, Vomiting, Nausea Positive: flank pain All Other Systems Reviewed And Are Negative: Yes Physical Exam - Summary Physical Exam Summary: Appearance: Well-nourished, appears to be in colicky pain Skin: Warm, dry, no obvious rash Eyes: sclera anicteric, no conjunctival pallor ENT: mucous membranes moist, pharynx appears normal Neck: Supple, nontender Respiratory: Clear to auscultation, no signs of respiratory distress Cardiovascular: Normal S1, S2. No murmurs. Normal distal pulses in tibial and radial bilaterally. Abdomen: Soft, nontender, normal active bowel sounds present Musculoskeletal: Normal, Strength/ROM Intact Neurological: A&Ox3, awake and alert, mentation is normal, speech is fluent and appropriate Psychiatric: affect is normal, does not appear anxious or depressed Triage Information Reviewed: Yes Vital Signs On Initial Exam: Initial Vitals Temp Pulse Resp BP Pulse Ox 101.0 F 103 16 157/75 100 09/23/18 07:58 09/23/18 07:58 09/23/18 07:58 09/23/18 07:58 09/23/18 07:58 Vital Signs Reviewed: Yes Diagnostics - Vital Signs Vital Signs Temp Pulse Resp BP Pulse Ox 09/23/18 07:58 101.0 F 103 16 157/75 100 - Laboratory Result Diagrams: 09/23/18 09:02 09/23/18 09:02 Lab Statement: Any lab studies that have been ordered have been reviewed, and results considered in the medical decision making process. - Radiology Abd/pel CT Radiology Interpretation Completed By: Radiologist Summary of Radiographic Findings: There is a 10 x 10 mm calculi at the left ureteropelvic junction resulting in a moderate degree of left hydronephrosis with perinephric infiltration of fat. Additional 5 mm calculi lower pole of the left kidney is noted. No other masses or fluid collections are noted. Dr. Sanders has reviewed this radiology report. - Ultrasound No standard instances Ultrasound Interpretation Completed By: Radiologist Summary of Ultrasound Findings: Renal US reveals Calculi in the mid and lower pole of left kidney. Moderate degree of left hydronephrosis is noted. Dr. Sanders has reviewed this radiology report. Re-Evaluation - Re-Evaluation First Eval Re-Evaluation Time: 10:24 Change: Improved Comment: Pain is much better. Patient is hungry. Discussed US results with the patient. Concerns of kidney stone obstruction and infection. Second Eval Re-Evaluation Time: 10:42 Comment: Discussed results of CT with the patient and possible plan for transfer. Patient understands and agrees with this plan. Third Eval Re-Evaluation Time: 11:33 Comment: Discussed plan for transfer with the patient. Abdominal Pain Fem Course/Dx - Course Course Of Treatment: This patient is a 48 year old F presenting to ED with a chief complaint of L flank pain since 0500 this morning s/p urinating. Patient reports N/V. In the ED course, the patient was given fluids, Toradol for pain, and Zofran for her nausea. Renal US reveals Calculi in the mid and lower pole of left kidney. Moderate degree of left hydronephrosis is noted. Patient was given Rocephin. Abd/pel CT reveals there is a 10 x 10 mm calculi at the left ureteropelvic junction resulting in a moderate degree of left hydronephrosis with perinephric infiltration of fat. Additional 5 mm calculi lower pole of the left kidney is noted. No other masses or fluid collections are noted. 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. Spoke with the [facility] transfer tyrone at 1044 about the patient and they will call back with an accepting physician. Spoke with [facility] at 1120 and they will have their urologist call back. Spoke with Dr. Chavez at [facility] at 1124 who accepts the patient for transfer to the ED. Dx Pyelonephritis and Ureteral stone. Patient understands and agrees with this plan. - Diagnoses Differential Diagnosis: Positive: Other - Pyelonephritis and ureteral stone Provider Diagnoses: Pyelonephritis, Ureteral stone - Provider Notifications Discussed Care Of Patient With: [facility] Time Discussed With Above Provider: 10:44 Instructed by Provider To: Other - Spoke with the [facility] center at 1044 about the patient and they will call back with an accepting physician. Spoke with [facility] at 1120 and they will have their urologist call back. Spoke with Dr. Chavez at [facility] at 1124 who accepts the patient for transfer to the ED. Discharge - Sign-Out/Discharge Documenting (check all that apply): Patient Departure - transfer Patient Received Moderate/Deep Sedation with Procedure: No - Discharge Plan Condition: Stable Disposition: TRANS HIGHER LVL OF CARE FAC Referrals: Emily Carr MD [Primary Care Provider] - - Billing Disposition and Condition Condition: STABLE Disposition: Trans Higher Lvl of Care Fac - Attestation Statements Document Initiated by Nehemiahibe: Yes Documenting Scribe: Drew Garces Provider For Whom Nehemiahibe is Documenting (Include Credential): Alessio Sanders MD Scribe Attestation: Drew Granda scribed for Alessio Sanders MD on 09/23/18 at 1134. Scribe Documentation Reviewed: Yes Provider Attestation: The documentation as recorded by the Drew joaquin accurately reflects the service I personally performed and the decisions made by me, Alessio Sanders MD Status of Scribe Document: Viewed
[2018-09-23 09:05] LABS: Urine Appearance Cloudy; Urine Bacteria Absent (Absent); Urine Bilirubin Negative (Negative); Urine Blood 2+ (Negative); Urine Color Yellow; Urine Glucose Negative (Negative); Urine Ketones Negative (Negative); Urine Nitrite Positive (Negative); Urine Protein Negative (Negative); Urine Red Blood Cell 2+(6-10/hpf) (Absent); Urine Squamous Epithelial Cell Present (Absent); Urine Urobilinogen Negative (Negative); Urine White Blood Cell 2+(11-20/hpf) (Absent)
[2018-09-23 09:10] LABS: ABS Basophils 0.1 10^3/ul (0-0.2); ABS Lymphocytes 0.9 10^3/ul (1.0-4.8); ABS Monocytes 0.5 10^3/ul (0-0.8); ABS Neutrophils 8.2 10^3/ul (1.5-7.7); Eosinophil % 0.5 %; Hematocrit 38 % (35-47); Hemoglobin 12.5 g/dL (12.0-16.0); Lymphocyte % 9.1 %; Mean Corpuscular HGB Conc 33 g/dL (31-36); Mean Corpuscular Hemoglobin 27 pg (27-31); Mean Corpuscular Volume 83 fL (80-97); Mean Platelet Volume 7.4 fL (7.4-10.4); Platelet Count 320 10^3/uL (150-450); Red Blood Count 4.57 10^6 /uL (3.70-4.87); Red Cell Distribution Width 15 % (10.5-15); White Blood Count 9.8 10^3/uL (3.5-10.8)
[2018-09-23] MEDS ORDERED: cefTRIAXone(*) 1 GM in NS 0.9% 50 ML* 50 ML IVPB ONE (09:15)
[2018-09-23 09:35] LABS: Albumin 3.7 g/dL (3.2-5.2); Albumin/Globulin Ratio 1.4 (1-3); BUN/Creatinine Ratio 12.2 (8-20); Calcium 8.9 mg/dL (8.6-10.3); EGFR African American 48.6 (>60); EGFR Non-African American 40.1 (>60); Globulin 2.6 g/dL (2-4); Potassium 4.4 mmol/L (3.5-5.0); Total Bilirubin 0.5 mg/dL (0.2-1.0); Total Protein 6.3 g/dL (6.4-8.9)
[2018-09-23] MEDS ORDERED: NS 0.9% 1000 ML** 2,000 ML IV ONE (10:51)
[2018-09-23] MEDS ORDERED: Nicotine PATCH 21 MG/24 HR* PATCH TRANSDERM ONE (10:52)
[2018-09-23 12:16] VITALS: BP 116/52
== END 2018-09-23 11:41 | disposition short-term general hospital (02) ==
LOC: ED 07:55
DX: N10 Acute pyelonephritis (principal); N13.2 Hydronephrosis with renal and ureteral calculous obstruction; E11.9 Type 2 diabetes mellitus without complications; E07.9 Disorder of thyroid, unspecified; F41.9 Anxiety disorder, unspecified; F32.9 Major depressive disorder, single episode, unspecified; F17.210 Nicotine dependence, cigarettes, uncomplicated; Z87.442 Personal history of urinary calculi; Z88.8 Allergy status to other drugs, medicaments and biological substances
CPT/HCPCS: 36415; 74176; 76775; 80053; 81003; 81015; 85025; 87077; 87086; 87186; 96361; 96374; 96375; 99285; A9270-GY; J0696; J1885; J2405

== ENCOUNTER 2018-09-24 23:12 | Inpatient (IN) | payer MEDICARE, MEDICAID ==
[2018-09-24] MEDS ORDERED: Lactated Ringers 1000 ML Bag* 1,000 ML IV.FLUID IV ONE (23:28)
[2018-09-24] MEDS ORDERED: ED Ceftriaxone 2 GM/50 ML 2 GM/2 ML PREMIX.SET IVPB ONE (23:29)
[2018-09-25 00:03] LABS: Urine Appearance Cloudy; Urine Bacteria 1+ (Absent); Urine Bilirubin Negative (Negative); Urine Blood 3+ (Negative); Urine Color Yellow; Urine Glucose Negative (Negative); Urine Ketones Trace (Negative); Urine Nitrite Negative (Negative); Urine Protein 2+(100 mg/dL) (Negative); Urine Red Blood Cell 3+(>10/hpf) (Absent); Urine Specific Gravity 1.012 (1.010-1.030); Urine Squamous Epithelial Cell Present (Absent); Urine Urobilinogen Negative (Negative); Urine White Blood Cell 3+(>20/hpf) (Absent)
[2018-09-25 00:14] LABS: ABS Eosinophils 0.1 10^3/ul (0-0.6); ABS Lymphocytes 0.7 10^3/ul (1.0-4.8); ABS Monocytes 0.3 10^3/ul (0-0.8); ABS Neutrophils 8.8 10^3/ul (1.5-7.7); Eosinophil % 0.8 %; Hematocrit 34 % (35-47); Hemoglobin 11.2 g/dL (12.0-16.0); Lymphocyte % 7.2 %; Mean Corpuscular HGB Conc 33 g/dL (31-36); Mean Corpuscular Hemoglobin 27 pg (27-31); Mean Corpuscular Volume 83 fL (80-97); Mean Platelet Volume 7.5 fL (7.4-10.4); Platelet Count 307 10^3/uL (150-450); Red Blood Count 4.13 10^6 /uL (3.70-4.87); Red Cell Distribution Width 15 % (10.5-15); White Blood Count 9.9 10^3/uL (3.5-10.8)
[2018-09-25 00:25] LABS: Activated Partial Thrombo Time 24.9 seconds (26.0-36.3); INR 1.02 (0.82-1.09)
[2018-09-25 00:36] LABS: Albumin 3.6 g/dL (3.2-5.2); Albumin/Globulin Ratio 1.3 (1-3); BUN/Creatinine Ratio 12.3 (8-20); C Reactive Protein 80.98 mg/L (<8.01); Calcium 8.7 mg/dL (8.6-10.3); EGFR African American 56.5 (>60); EGFR Non-African American 46.7 (>60); Globulin 2.8 g/dL (2-4); Potassium 3.2 mmol/L (3.5-5.0); Total Bilirubin 0.3 mg/dL (0.2-1.0); Total Protein 6.4 g/dL (6.4-8.9); Troponin I 0.01 ng/mL (<0.04)
[2018-09-25] MEDS ORDERED: cefTRIAXone(*) 2 GM in NS 0.9% 100 ML* 100 ML IVPB ONE (00:40)
[2018-09-25] MEDS ORDERED: GENTAMICIN ADULT IVPB ONE (01:36)
[2018-09-25] MEDS ORDERED: NS 0.9% IVPB ONE (01:36)
--- NOTE | 2018-09-25 02:04 | ED ---
HPI Febrile Illness - HPI Summary HPI Summary: The patient is a 48 y/o F presenting to [facility] arriving by ambulance with a chief complaint of fever of 100.6F, chills, and heart palpitations starting today. She reports that she was here yesterday and was diagnosed with a large kidney stone. She had a stent put it without a lithotripsy. Today, she passed two stones, and she has been experiencing pain in the left flank. She is not currently in pain. In the ambulance, the patient had tachycardia in the 140s and normal glucose of 168. Currently taking Bactrim. Hx of DM. Smoker. - History of Current Complaint Chief Complaint: EDFever Time Seen by Provider: 09/24/18 23:20 Hx Obtained From: Patient Hx Last Menstrual Period: 2 WEEKS AGO Onset/Duration: Started Hours Ago - this morning, Still Present Timing: Lasting Hours Initial Severity: Moderate Current Severity: Mild Pain Intensity: 0 Pain Scale Used: 0-10 Numeric Aggravating Factors: Nothing Alleviating Factors: Nothing Associated Signs and Symptoms: Chills, Other: - heart palpitations - Allergy/Home Medications Allergies/Adverse Reactions: Allergies Allergy/AdvReac Type Severity Reaction Status Date / Time paroxetine [From Paxil] Allergy Rash Verified 09/24/18 23:27 PMH/Surg Hx/FS Hx/Imm Hx Endocrine/Hematology History: Reports: Hx Diabetes - TYPE II- ON ORAL MEDICATION FOR, Hx Thyroid Disease - ON MEDICATION FOR Cardiovascular History: Denies: Hx Hypertension, Hx Pacemaker/ICD Respiratory History: Reports: Hx Sleep Apnea Denies: Hx Asthma, Hx Chronic Obstructive Pulmonary Disease (COPD) GI History: Denies: Hx Ulcer, Other GI Disorders History: Reports: Hx Kidney Stones - LEFT SIDE CURRENTLY REPORTS NO PROBLEMS WITH Musculoskeletal History: Reports: Hx Arthritis - ?, Other Musculoskeletal History - HX OF TAILBONE FRACTURE WHILE IN GRADE SCHOOL Sensory History: Reports: Hx Contacts or Glasses - GLASSES Denies: Hx Hearing Aid Opthamlomology History: Reports: Hx Contacts or Glasses - GLASSES Neurological History: Denies: Other Neuro Impairments/Disorders Psychiatric History: Reports: Hx Anxiety - HX OF RECENTLY, Hx Depression - ON MEDICATION FOR - Cancer History Hx Chemotherapy: No Hx Radiation Therapy: No - Surgical History Surgery Procedure, Year, and Place: TUBAL LIGATION. D/C X2 Hx Anesthesia Reactions: No Infectious Disease History: No Infectious Disease History: Denies: Hx Hepatitis, Hx Human Immunodeficiency Virus (HIV), Traveled Outside the [place] in Last 30 Days - Family History Known Family History: Positive: Hypertension - Social History Alcohol Use: None Hx Substance Use: No Substance Use Type: Reports: None Hx Tobacco Use: Yes Smoking Status (MU): Heavy Every Day Tobacco Smoker Type: Cigarettes Amount Used/How Often: 1 PPD X 30+ YEARS Length of Time of Smoking/Using Tobacco: 30 YRS Have You Smoked in the Last Year: Yes Review of Systems Positive: Fever - 100.6F, Chills Positive: Palpitations Positive: flank pain - left, other - passing of two kidney stones Positive: Other - back pain All Other Systems Reviewed And Are Negative: Yes Physical Exam - Summary Physical Exam Summary: Appearance: well appearing, no pain distress Skin: warm, dry, reflects adequate perfusion Head/face: normal Eyes: EOMI, ANGELES ENT: mucous membranes moist Neck: supple, non-tender Respiratory: CTA, breath sounds present Cardiovascular: RRR, pulses symmetrical Abdomen: non-tender, soft Bowel Sounds: present Musculoskeletal: normal, strength/ROM intact Neuro: normal, sensory motor intact, A&Ox3 Triage Information Reviewed: Yes Vital Signs On Initial Exam: Initial Vitals Temp Pulse Resp BP Pulse Ox 101.4 F 131 17 136/77 100 09/24/18 23:19 09/24/18 23:19 09/24/18 23:19 09/24/18 23:19 09/24/18 23:19 Vital Signs Reviewed: Yes Diagnostics - Vital Signs Vital Signs Temp Pulse Resp BP Pulse Ox 09/25/18 01:38 116 18 122/59 99 09/25/18 01:37 6 09/25/18 00:00 124 17 96 09/24/18 23:55 123 16 100 09/24/18 23:26 129 136/77 100 09/24/18 23:24 129 100 09/24/18 23:19 101.4 F 131 17 136/77 100 - Laboratory Lab Results: Lab Results 09/24/18 09/25/18 09/25/18 Range/Units 23:50 00:00 00:00 WBC 9.9 (3.5-10.8) 10^3/uL RBC 4.13 (3.70-4.87) 10^6 /uL Hgb 11.2 L (12.0-16.0) g/dL Hct 34 L (35-47) % MCV 83 (80-97) fL MCH 27 (27-31) pg MCHC 33 (31-36) g/dL RDW 15 (10.5-15) % Plt Count 307 (150-450) 10^3/uL MPV 7.5 (7.4-10.4) fL Neut % (Auto) 89.2 % Lymph % (Auto) 7.2 % [place] % (Auto) 2.7 % Eos % (Auto) 0.8 % Baso % (Auto) 0.1 % Absolute Neuts (auto) 8.8 H (1.5-7.7) 10^3/ul Absolute Lymphs (auto) 0.7 L (1.0-4.8) 10^3/ul Absolute Monos (auto) 0.3 (0-0.8) 10^3/ul Absolute Eos (auto) 0.1 (0-0.6) 10^3/ul Absolute Basos (auto) 0.0 (0-0.2) 10^3/ul Absolute Nucleated RBC 0.0 10^3/ul Nucleated RBC % 0.0 INR (Anticoag Therapy) 1.02 (0.82-1.09) APTT 24.9 L (26.0-36.3) seconds Sodium (135-145) mmol/L Potassium (3.5-5.0) mmol/L Chloride (101-111) mmol/L Carbon Dioxide (22-32) mmol/L Anion Gap (2-11) mmol/L BUN (6-24) mg/dL Creatinine (0.51-0.95) mg/dL Est GFR ( Amer) (>60) Est GFR (Non-Af Amer) (>60) BUN/Creatinine Ratio (8-20) Glucose (70-100) mg/dL Lactic Acid (0.5-2.0) mmol/L Calcium (8.6-10.3) mg/dL Total Bilirubin (0.2-1.0) mg/dL AST (13-39) U/L ALT (7-52) U/L Alkaline Phosphatase (34-104) U/L Troponin I (<0.04) ng/mL C-Reactive Protein (<8.01) mg/L Total Protein (6.4-8.9) g/dL Albumin (3.2-5.2) g/dL Globulin (2-4) g/dL Albumin/Globulin Ratio (1-3) Urine Color Yellow Urine Appearance Cloudy Urine pH 5.0 (5-9) Ur Specific [place] 1.012 (1.010-1.030) Urine Protein 2+(100 mg/dl) A (Negative) Urine Ketones Trace A (Negative) Urine Blood 3+ A (Negative) Urine Nitrate Negative (Negative) Urine Bilirubin Negative (Negative) Urine Urobilinogen Negative (Negative) Ur Leukocyte Esterase 2+ A (Negative) Urine WBC (Auto) 3+(>20/hpf) A (Absent) Urine RBC (Auto) 3+(>10/hpf) A (Absent) Ur Squamous Epith Cells Present A (Absent) Urine Bacteria 1+ A (Absent) Urine Glucose Negative (Negative) 09/25/18 09/25/18 Range/Units 00:00 00:00 WBC (3.5-10.8) 10^3/uL RBC (3.70-4.87) 10^6 /uL Hgb (12.0-16.0) g/dL Hct (35-47) % MCV (80-97) fL MCH (27-31) pg MCHC (31-36) g/dL RDW (10.5-15) % Plt Count (150-450) 10^3/uL MPV (7.4-10.4) fL Neut % (Auto) % Lymph % (Auto) % [place] % (Auto) % Eos % (Auto) % Baso % (Auto) % Absolute Neuts (auto) (1.5-7.7) 10^3/ul Absolute Lymphs (auto) (1.0-4.8) 10^3/ul Absolute Monos (auto) (0-0.8) 10^3/ul Absolute Eos (auto) (0-0.6) 10^3/ul Absolute Basos (auto) (0-0.2) 10^3/ul Absolute Nucleated RBC 10^3/ul Nucleated RBC % INR (Anticoag Therapy) (0.82-1.09) APTT (26.0-36.3) seconds Sodium 140 (135-145) mmol/L Potassium 3.2 L (3.5-5.0) mmol/L Chloride 109 (101-111) mmol/L Carbon Dioxide 21 L (22-32) mmol/L Anion Gap 10 (2-11) mmol/L BUN 15 (6-24) mg/dL Creatinine 1.22 H (0.51-0.95) mg/dL Est GFR ( Amer) 56.5 (>60) Est GFR (Non-Af Amer) 46.7 (>60) BUN/Creatinine Ratio 12.3 (8-20) Glucose 146 H (70-100) mg/dL Lactic Acid 2.1 H* (0.5-2.0) mmol/L Calcium 8.7 (8.6-10.3) mg/dL Total Bilirubin 0.30 (0.2-1.0) mg/dL AST 12 L (13-39) U/L ALT 17 (7-52) U/L Alkaline Phosphatase 52 (34-104) U/L Troponin I 0.01 (<0.04) ng/mL C-Reactive Protein 80.98 H (<8.01) mg/L Total Protein 6.4 (6.4-8.9) g/dL Albumin 3.6 (3.2-5.2) g/dL Globulin 2.8 (2-4) g/dL Albumin/Globulin Ratio 1.3 (1-3) Urine Color Urine Appearance Urine pH (5-9) Ur Specific [place] (1.010-1.030) Urine Protein (Negative) Urine Ketones (Negative) Urine Blood (Negative) Urine Nitrate (Negative) Urine Bilirubin (Negative) Urine Urobilinogen (Negative) Ur Leukocyte Esterase (Negative) Urine WBC (Auto) (Absent) Urine RBC (Auto) (Absent) Ur Squamous Epith Cells (Absent) Urine Bacteria (Absent) Urine Glucose (Negative) Result Diagrams: 09/25/18 00:00 09/25/18 00:00 Lab Statement: Any lab studies that have been ordered have been reviewed, and results considered in the medical decision making process. - Radiology CXR Radiology Interpretation Completed By: ED Physician Summary of Radiographic Findings: No acute process, pending official report. abdomen x-ray Radiology Interpretation Completed By: ED Physician Summary of Radiographic Findings: Intact left ureteral stent is noted, pending official report. - EKG 2343 Cardiac Rate: Tachycardia - 130 BPM EKG Rhythm: Sinus Tachycardia Summary of EKG Findings: Nml axis, nml ST Course/Dx - Course Course Of Treatment: Nurses notes reviewed. - Diagnoses Provider Diagnoses: Severe sepsis, Ureterolithiasis, Pyelonephritis - Provider Notifications Discussed Care Of Patient With: Dionicio Garcia Time Discussed With Above Provider: 06:51 Instructed by Provider To: Other - 0651 - Patient's case was discussed with Dr. Garcia, Dr. Garcia recommends admission of the patient and is agreeable to consult on the patient's case. US to be ordered as well. 0709 - Patient's case was discussed with Dr. Rodriguez, Dr. Rodriguez accepts for admission. - Critical Care Time Critical Care Time: 30-74 min - CCT is EXCLUSIVE of separately billable procedures. Discharge - Sign-Out/Discharge Documenting (check all that apply): Patient Departure - ADMIT Patient Received Moderate/Deep Sedation with Procedure: No - Discharge Plan Condition: Good Disposition: ADMITTED TO [facility] Referrals: Emily Carr MD [Primary Care Provider] - - Attestation Statements Document Initiated by Scribe: Yes Documenting Scribe: Adriane Fitzpatrick Provider For Whom Scribe is Documenting (Include Credential): Dr. Samuel Martino MD Scribe Attestation: I, Adriane Valencia and Aron Fitzpatrick, scribed for Dr. Samuel Martino MD on at 0710. Status of Scribe Document: Ready
[2018-09-25] MEDS ORDERED: Acetaminophen TAB* 325 MG PO ONE (03:19)
[2018-09-25] MEDS ORDERED: Acetaminophen TAB* 325 MG PO PRN (08:40)
[2018-09-25] MEDS ORDERED: Nicotine Lozenge* 4 MG LOZENGE MT PRN (08:41)
[2018-09-25] MEDS ORDERED: Ondansetron INJ* 2 MG/ML VIAL IV SCH (09:00)
[2018-09-25] MEDS ORDERED: Ondansetron INJ* 2 MG/ML VIAL IV PRN (11:00)
[2018-09-25] MEDS: buPROPion SR TAB.SR* 150 MG PO SCH (11:39)
[2018-09-25] MEDS: Levothyroxine TAB* 50 MCG TAB PO SCH (11:39)
[2018-09-25] MEDS: NS 0.9% 1000 ML** 1,000 ML IV SCH ×2 (11:39→19:53)
[2018-09-25] MEDS: Cetirizine* 10 MG TAB PO SCH (11:39)
[2018-09-25] MEDS: Nicotine PATCH 14 MG/24 HR* PATCH TRANSDERM SCH (11:39)
--- NOTE | 2018-09-25 11:48 | HP ---
HISTORY AND PHYSICAL: DATE OF ADMISSION: 09/25/18 PRIMARY CARE PROVIDER: Dr. Jaleesa Muñoz, CC: Urology Dr. Alexis Mulligan CODE STATUS: Full. [employer]: Amado Christy, the patient's . SOURCE OF INFORMATION: HPI is obtained from the patient and review of chart. She is a good historian. CHIEF COMPLAINT: Fever and left flank pain. HISTORY OF PRESENT ILLNESS: This is a 48-year-old female with past medical history of dzc-nropvbc-wismueasi diabetes, hypothyroidism, anxiety, depression, and tobacco use with recently diagnosed nephrolithiasis, who presented to the emergency room on 09/23/18 with left flank pain and found to have left kidney hydronephrosis and obstructive calculi in the left uteropelvic junction. 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 She returned to the emergency room on 09/24/18 evening with a fever of 100.6 at home and recurrent left flank pain. The patient did report that she did pass 2 stones during the day on 09/24/18, but has had persistent left flank pain with rigors, fatigue, malaise, and poor appetite since being discharged from [facility]. She was discharged on Bactrim, which she reports she took 1 dose on 09/24/18. In the emergency room, the patient was sinus tachycardic to 130, febrile to 101.4, respiratory rate of 15, satting 100% on room air with blood pressure of 136/77. Labs showed a normal CBC, a BMP that was remarkable for a creatinine of 1.2, lactic acid elevated at 2.8, potassium 3.2, and CRP elevated at 80. UA was done, which showed blood and positive leuk esterase and protein, as well as bacteria. An abdominal radiograph showed left ureteral stent in place and 2 left renal stones with the prior stone displaced proximally and no evidence of hydronephrosis. A renal ultrasound also showed the same without any evidence of perinephric collection. An EKG was done that showed sinus tachycardia and a chest x-ray was done, which showed no active cardiopulmonary disease. The patient received ceftriaxone, gentamicin, and 3 liter LR bolus. Urology was consulted who recommended to admit the patient under the hospitalist service since she was refusing transfer to [facility] and Urology to be consulted. PAST MEDICAL HISTORY: Qrx-vuctuzh-zayrjydak diabetes, hypothyroidism, anxiety, depression, tobacco use, nephrolithiasis. PAST SURGICAL HISTORY: Status post tubal ligation, status post D and C x2. MEDICATIONS: Prior to admission: 1. Bupropion 150 mg p.o. daily. 2. Ezetimibe 10 mg p.o. q.a.m. 3. Levothyroxine 50 mcg p.o. q.a.m. 4. Loratadine 10 mg p.o. daily. 5. Metformin 500 mg p.o. b.i.d. 6. Pravastatin 80 mg p.o. q.p.m. ALLERGIES: PAXIL. FAMILY HISTORY: Mother and father are positive for hypertension. SOCIAL HISTORY: The patient lives with her . Alcohol: Reports scant to social use 1 to 2 drinks per month. Tobacco use is 1 pack per day x30 years. Illicits: Denies lifetime use. REVIEW OF SYSTEMS: Positive for fevers, chills, malaise. HEENT: Negative for vision changes, headaches, sore throat, oral complaints. Cardiovascular: Negative for chest pain, palpitations, orthopnea. Respiratory: Negative for shortness of breath, cough, pleuritic chest pain. GI: Negative for nausea, vomiting, diarrhea. Positive for flank pain. : Positive for dysuria, hematuria, and left flank pain. Musculoskeletal: Negative for myalgias, arthralgias, or new weakness. Skin: Negative for new rashes or lesions. Neurological: Negative for focal weakness or numbness. Psychiatric: Negative for depression or anxiety. Endocrine: Negative for polyuria or polydipsia. Heme: Negative for easy bruising, bleeding, or lymphadenopathy. Allergy: Negative for frequent infections. PHYSICAL EXAMINATION GENERAL: A pleasant woman in no acute distress, lying comfortably in ER stretcher. VITAL SIGNS: At the time of physical exam, temperature 99.2, heart rate 95, respiratory rate 16, satting 100% on room air with blood pressure 118/53. HEENT: Sclerae anicteric. Extraocular muscles intact. Pupils equal and reactive. Moist mucous membranes. NECK: Supple. No cervical lymphadenopathy or supraclavicular lymphadenopathy. RESPIRATORY: Clear to auscultation bilaterally in both lung hendrickson. CARDIAC: Regular rate and rhythm with no murmurs, rubs, or gallops. GI: Belly is obese, nontender, nondistended, normoactive bowel sounds. No organomegaly. Positive costovertebral angle tenderness on the left. BACK/SPINE: Negative for point tenderness. MUSCULOSKELETAL: She moves all 4 extremities spontaneously. EXTREMITIES: Negative for edema. 2+ pulses palpable in bilateral dorsalis pedis pulses. NEUROLOGIC: Cranial nerves II through XII are intact. No focal neurologic deficits. A and O x3. SKIN: Negative for new rashes or lesions. LABS AND STUDIES: White blood cell count of 9.9, hemoglobin of 11.2, hematocrit 34, platelets 307. Sodium 140, potassium 3.2, chloride 109, carbon dioxide 21, anion gap 10, BUN 15, creatinine 1.22, glucose 146, lactic acid 2.8 , calcium 8.7. Total bilirubin 0.3, AST 12, ALT 17, alkaline phosphatase 52. Troponin 0.01. CRP 80. UA was done, which shows 2+ protein, trace ketones, 3+ blood, 2+ leuk esterase, 1+ bacteria. Imaging done includes abdominal radiograph, which shows left ureteral stent in place and 2 left renal stones, prior stent displaced, and normal gas pattern. A renal ultrasound was done, which shows 2 left renal stones without perinephric collection or hydronephrosis. EKG was done that shows sinus tachycardia with no active signs of ischemia. Chest x-ray was done, which shows stigmata of chronic obstructive pulmonary disease but no active cardiopulmonary disease. Labs, imaging, and EKG reviewed by myself. ASSESSMENT AND PLAN: This is a 48-year-old female with past medical history of non- insulin-dependent diabetes, hypothyroidism, anxiety, depression, tobacco use, non obstructive new nephrolithiasis, 1 day status post left ureteral stent placement, who presents with sepsis secondary to likely urinary source and outpatient failure of pyelonephritis with outpatient Bactrim. 1. Sepsis. She meets 2/4 systemic inflammatory response syndrome criteria with positive lactic acid, most likely from a urinary source. The patient is on Bactrim oral for only 12 hours prior to admission. She has no evidence of perinephric collection. We will watch culture data and continue with IV ceftriaxone and consider this outpatient for failure of oral antibiotics. We will follow lactic acid. 2. Pyelonephritis, UTI. Will remain on ceftriaxone, fluids, and follow culture data. 3. Left nephrolithiasis and acute kidney injury. This is nonobstructive at this time. We will consult Urology who reports to just have patient follow in clinic upon discharge to discuss future lithotripsy. Continue to monitor for localized infections. Continue to monitor creatinine. 4. Qui-kextwdw-yorfrowiq diabetes. We will hold her home metformin secondary to acute kidney injury and place her on point of care glucose with meals and monitor, add low-dose sliding scale as needed. 5. Sinus tachycardia. This is likely infection induced. We will monitor on telemetry for 24 hours and see if it improves with fluid resuscitation. 6. Tobacco dependence. We will offer the patient nicotine replacement therapy. 7. Hypothyroidism. Continue home medications. 8. Anxiety. We will continue home Wellbutrin. 9. DVT prophylaxis: The patient is moderate risk. We will place on subcutaneous heparin. 10. Diet: We will place the patient on n.p.o. diet until Urology clears for any possible procedure. 11. Disposition: The patient is stable for admission to medical service on . 12. Code status is full. TIME SPENT: Forty minutes was spent in the planning of this admission with over half of that spent directly at the bedside with the patient. Plan of care was discussed with the patient and family, and they have no current questions, stable for admission. [id number]/[facility] #: [id number] MTDD
[2018-09-25] MEDS: Ezetimibe TAB* 10 MG PO SCH (12:02)
[2018-09-25 13:35] LABS: BUN/Creatinine Ratio 8.7 (8-20); Calcium 8.5 mg/dL (8.6-10.3); EGFR African American 67.9 (>60); EGFR Non-African American 56.1 (>60); Potassium 3.6 mmol/L (3.5-5.0)
[2018-09-25] MEDS: Heparin VIAL(*) 5000 UNITS/ML VIAL (FIVE THOUSAND) SUBCUT SCH ×2 (14:41→20:47)
[2018-09-25] MEDS: Atorvastatin* 10 MG TAB PO SCH (17:16)
--- NOTE | 2018-09-25 19:12 | CONS ---
GENITOURINARY CONSULTATION NOTE: DATE OF CONSULT: 09/25/18 LOCATION: The patient is in room 441. HISTORY OF PRESENT ILLNESS: I was asked by the hospitalist staff to see this 48 - year-old white female with left flank pain, left renal calculi, status post insertion left ureteral stent. Ms. Christy is a known stone former. She presented to the emergency room 2 days ago with symptoms of left renal colic. Her urine was infected. Noncontrast CT of the abdomen and pelvis showed a 1-cm calculus at the left ureteropelvic junction and another 1 cm calculus in the lower pole calyx of the left kidney. Because she needed urgent placement of a left ureteral stent and the nonavailability of Urology coverage at [facility] [place] [place] that day, the patient was transferred to [place] where she had urgent placement of a left ureteral stent. She was kept overnight on IV antibiotic and was discharged home on oral antibiotics. She initially did fine; however, she had recurrence of the left flank pain and recurrence of her fever. She presented back to the emergency room where she was noted to have a fever of 101.4, tachycardia of 130. Her urine analysis was positive for infection. Her CBC was normal and the creatinine was 1.2; however , the lactic acid was elevated at 2.8. The patient had a KUB, which showed the left ureteral stent in good position and the calculus at the left ureteropelvic junction had migrated into the kidney. Two calculi, each measuring about 1 cm in size, were noted in the mid and lower pole calyces of the left kidney. Renal ultrasound showed no hydronephrosis. The patient was admitted by the hospitalist service and after cultures were obtained, was started on ceftriaxone IV and on gentamicin. A consultation was obtained because of the history of renal calculus disease. I saw her on her evaluation this evening. She was very comfortable. She was afebrile and her flank pain had much improved. She is still on the IV fluids and antibiotics. The patient's past medical history is relevant for non-insulin dependent diabetes mellitus, hypothyroidism, anxiety, depression, and chronic smoking and past history of renal calculi. IMPRESSION: Left pyelonephritis with an obstructing left ureteral calculus, status post placement left ureteral stent. Reactivation of the pyelonephritis after stopping the IV antibiotics. PLAN: Considering the patient is not obstructed and the stent is in good position, the plan is to continue on the IV antibiotics until she is fully recovered. She can then be discharged on oral antibiotics. She will need definitive treatment of the left renal calculi, but this has to wait for at least 2 weeks until she is fully recovered from the pyelonephritis. Considering the patient's body habitus, will decide if she would be a candidate for shockwave lithotripsy or if she is going to need percutaneous treatment of the stones. [id number]/[facility] #: [id number] NOEL
[2018-09-25] MEDS: cefTRIAXone(*) 1 GM in NS 0.9% 50 ML* 50 ML IVPB SCH (20:33)
[2018-09-25] MEDS: traMADol TAB* 50 MG PO PRN (20:38)
[2018-09-25] MEDS: Nicotine Patch Removal NOTE FOLLOW UP SCH (20:41)
[2018-09-26] MEDS: Heparin VIAL(*) 5000 UNITS/ML VIAL (FIVE THOUSAND) SUBCUT SCH ×3 (05:27→21:52)
[2018-09-26 06:07] LABS: ABS Eosinophils 0.4 10^3/ul (0-0.6); ABS Lymphocytes 1.4 10^3/ul (1.0-4.8); ABS Monocytes 0.3 10^3/ul (0-0.8); ABS Neutrophils 2.9 10^3/ul (1.5-7.7); Eosinophil % 7.5 %; Hematocrit 32 % (35-47); Hemoglobin 10.8 g/dL (12.0-16.0); Lymphocyte % 28.4 %; Mean Corpuscular HGB Conc 34 g/dL (31-36); Mean Corpuscular Hemoglobin 28 pg (27-31); Mean Corpuscular Volume 83 fL (80-97); Mean Platelet Volume 7.5 fL (7.4-10.4); Platelet Count 283 10^3/uL (150-450); Red Blood Count 3.83 10^6 /uL (3.70-4.87); Red Cell Distribution Width 15 % (10.5-15)
[2018-09-26 06:28] LABS: BUN/Creatinine Ratio 8.5 (8-20); Calcium 8.4 mg/dL (8.6-10.3); EGFR African American 66.4 (>60); EGFR Non-African American 54.9 (>60); Potassium 3.6 mmol/L (3.5-5.0)
[2018-09-26] MEDS ORDERED: Dextrose 50% Syringe 50 ML* 25 GM/50 ML SYRINGE IV PUSH PRN (07:44)
[2018-09-26] MEDS: buPROPion SR TAB.SR* 150 MG PO SCH (07:58)
[2018-09-26] MEDS: Nicotine PATCH 14 MG/24 HR* PATCH TRANSDERM SCH (07:59)
[2018-09-26] MEDS: Cetirizine* 10 MG TAB PO SCH (07:59)
[2018-09-26] MEDS: Ezetimibe TAB* 10 MG PO SCH (07:59)
[2018-09-26] MEDS: Levothyroxine TAB* 50 MCG TAB PO SCH (07:59)
[2018-09-26] MEDS: Insulin LISPRO* 1 UNITS UNIT SUBCUT SCH ×2 (12:07→17:07)
--- NOTE | 2018-09-26 13:25 | PN ---
Subjective Date of Service: 09/26/18 Interval History: Ms. Christy is feeling much better today. She still has some fatigue and malaise. Denies CP, SOB, N/V. No further fevers. Urinating without difficulty. Fearful to return home and have symptoms recur. No concerns from nursing. Family History: Unchanged from Admission Social History: Unchanged from Admission Past Medical History: Unchanged from Admission Objective Active Medications: Acetaminophen (Tylenol Tab*) 650 mg PO Q6H PRN FEVER/PAIN Atorvastatin Calcium (Lipitor*) 10 mg PO 1700 ELLIE Bupropion HCl (Wellbutrin Sr Tab*) 150 mg PO DAILY ELLIE Cetirizine HCl (Zyrtec*) 10 mg PO DAILY ELLIE Dextrose (D50w Syringe 50 Ml*) 12.5 gm IV PUSH .FOR FS < 60 - SS PRN FS < 60 Ezetimibe (Zetia Tab*) 10 mg PO QAM [facility] Heparin Sodium (Porcine) (Heparin Vial(*)) 5,000 units SUBCUT Q8HR ELLIE Ceftriaxone Sodium 1 gm/ (Sodium Chloride) 50 mls @ 200 mls/hr IVPB Q24H [facility] Insulin Human Lispro (Humalog*) 0 units SUBCUT AC ELLIE; Protocol Levothyroxine Sodium (Synthroid Tab*) 50 mcg PO QAM [facility] Nicotine (Nicotine Patch 14 Mg/24 Hr*) 1 patch TRANSDERM DAILY [facility] Nicotine Polacrilex (Nicotine Lozenge*) 4 mg MT Q2H PRN CRAVINGS Ondansetron HCl (Zofran Inj*) 4 mg IV Q4H PRN NAUSEA/VOMITING Tramadol HCl (Ultram*) 50 mg PO Q8H PRN PAIN - SEVERE Vital Signs - 8 hr 09/26/18 09/26/18 09/26/18 07:11 07:12 11:05 Temperature 98.6 F 97.7 F Pulse Rate 76 73 Respiratory 16 16 16 Rate Blood Pressure 131/62 123/57 (mmHg) O2 Sat by Pulse 99 98 Oximetry Oxygen Devices in Use Now: None Appearance: Middle-aged female sitting in bed in NAD Eyes: No Scleral Icterus Ears/Nose/Mouth/Throat: Mucous Membranes Moist Neck: NL Appearance and Movements; NL JVP, Trachea Midline Respiratory: Symmetrical Chest Expansion and Respiratory Effort, Clear to Auscultation Cardiovascular: NL Sounds; No Murmurs; No JVD, RRR Abdominal: - - Mild suprapubic tenderness Extremities: No Edema Skin: No Rash or Ulcers Neurological: Alert and Oriented x 3 Lines/Tubes/Other Access: Clean, Dry and Intact Peripheral IV Nutrition: Taking PO's Result Diagrams: 09/26/18 05:35 09/26/18 05:35 Assess/Plan/Problems-Billing Assessment: Ms. Christy is a 48 yo F with PMH of DM2, HTN, and nephrolithiasis, s/p stent on 09/24/18 at [facility], presented to the ED the same day with a fever and was d/c'd home on Bactrim; who now presents with c/o continued flank pain and rigors and was found to meet sepsis criteria. - Patient Problems (1) UTI (urinary tract infection) Comment: - No clear evidence of pyelonephritis - Urine culture without growth, though culture from 09/23/18 grew pansensitive E. coli - Continue ceftriaxone (2) CHRISTIANE (acute kidney injury) Code(s): N17.9 - ACUTE KIDNEY FAILURE, UNSPECIFIED Comment: - Resolving - Postrenal secondary to obstruction (3) Severe sepsis Code(s): A41.9 - SEPSIS, UNSPECIFIED ORGANISM; R65.20 - SEVERE SEPSIS WITHOUT SEPTIC SHOCK Comment: - Resolved - Met criteria on admission fever, tachycardia, lactic acidosis; source presumed to be urinary - Plan as above (4) Nephrolithiasis Code(s): N20.0 - CALCULUS OF KIDNEY Comment: - No further difficulty urinating, dysuria, or flank pain - S/p stent placement on 09/24/18 at [facility] d/t hydronephrosis, and presented to the ED the same day with a fever and was d/c'd home on Bactrim; now back again meeting criteria for severe sepsis - Appreciate Urology consult; recommends continuing IV abx for now then changing to PO at d/c; will ultimately need definitive treatment for the stone once recovered (5) Diabetes mellitus Code(s): E11.9 - TYPE 2 DIABETES MELLITUS WITHOUT COMPLICATIONS Comment: - Excellent glucose control - A1c 5.9% in April - Continue Lispro SS; resume metformin (6) Hyperlipidemia Code(s): E78.5 - HYPERLIPIDEMIA, UNSPECIFIED Comment: - Continue atorvastatin, Zetia (7) Depression Code(s): F32.9 - MAJOR DEPRESSIVE DISORDER, SINGLE EPISODE, UNSPECIFIED Comment: - Continue bupropion (8) Hypothyroidism Code(s): E03.9 - HYPOTHYROIDISM, UNSPECIFIED Comment: - Continue levothyroxine (9) DVT prophylaxis Code(s): Z29.9 - ENCOUNTER FOR PROPHYLACTIC MEASURES, UNSPECIFIED Comment: - Heparin SQ (10) Full code status Code(s): Z78.9 - OTHER SPECIFIED HEALTH STATUS Comment: Status and Disposition: Inpatient. Anticipate d/c home when medically stable, possibly tomorrow. Attending: Kaveh Jensen
[2018-09-26] MEDS: Atorvastatin* 10 MG TAB PO SCH (17:07)
[2018-09-26] MEDS: cefTRIAXone(*) 1 GM in NS 0.9% 50 ML* 50 ML IVPB SCH (21:37)
[2018-09-26] MEDS: metFORMIN* 500 MG TAB PO SCH (21:52)
[2018-09-26] MEDS: traMADol TAB* 50 MG PO PRN (21:56)
[2018-09-26] MEDS: Nicotine Patch Removal NOTE FOLLOW UP SCH (21:57)
[2018-09-27] MEDS: Heparin VIAL(*) 5000 UNITS/ML VIAL (FIVE THOUSAND) SUBCUT SCH (05:14)
[2018-09-27 05:50] LABS: ABS Eosinophils 0.4 10^3/ul (0-0.6); ABS Lymphocytes 1.7 10^3/ul (1.0-4.8); ABS Monocytes 0.4 10^3/ul (0-0.8); ABS Neutrophils 2.5 10^3/ul (1.5-7.7); Eosinophil % 8.1 %; Hematocrit 31 % (35-47); Hemoglobin 10.4 g/dL (12.0-16.0); Lymphocyte % 34.4 %; Mean Corpuscular HGB Conc 33 g/dL (31-36); Mean Corpuscular Hemoglobin 28 pg (27-31); Mean Corpuscular Volume 83 fL (80-97); Mean Platelet Volume 7.3 fL (7.4-10.4); Platelet Count 296 10^3/uL (150-450); Red Blood Count 3.78 10^6 /uL (3.70-4.87); Red Cell Distribution Width 15 % (10.5-15)
[2018-09-27 06:11] LABS: BUN/Creatinine Ratio 9.4 (8-20); Calcium 8.7 mg/dL (8.6-10.3); EGFR African American 66.4 (>60); EGFR Non-African American 54.9 (>60); Potassium 3.6 mmol/L (3.5-5.0)
[2018-09-27] MEDS: Insulin LISPRO* 1 UNITS UNIT SUBCUT SCH ×2 (08:21→12:13)
[2018-09-27] MEDS: Levothyroxine TAB* 50 MCG TAB PO SCH (08:22)
[2018-09-27] MEDS: buPROPion SR TAB.SR* 150 MG PO SCH (08:22)
[2018-09-27] MEDS: metFORMIN* 500 MG TAB PO SCH (08:22)
[2018-09-27] MEDS: Cetirizine* 10 MG TAB PO SCH (08:22)
[2018-09-27] MEDS: Ezetimibe TAB* 10 MG PO SCH (08:23)
[2018-09-27] MEDS: Nicotine PATCH 14 MG/24 HR* PATCH TRANSDERM SCH (08:24)
[2018-09-27] MEDS ORDERED: Cefdinir cap* 300 MG CAP PO SCH (09:00)
[2018-09-27 12:26] VITALS: BP 119/47
--- NOTE | 2018-09-27 22:23 | DS ---
CC: Dr. Emily Carr; Dr. Dionicio Garcia* DISCHARGE SUMMARY: DATE OF ADMISSION: 09/25/18 DATE OF DISCHARGE: 09/27/18 PRIMARY CARE PROVIDER: Dr. Emily Carr. ATTENDING PHYSICIAN: Dr. Kaveh Jensen* (dictated by Monique Baker NP). PRIMARY DIAGNOSES: 1. Urinary tract infection. 2. Acute kidney injury, post renal secondary to obstruction. 3. Severe sepsis. 4. Nephrolithiasis. SECONDARY DIAGNOSES: 1. Diabetes mellitus, type 2. 2. Hyperlipidemia. 3. Depression. 4. Hypothyroidism. STUDIES WHILE IN THE HOSPITAL: Chest x-ray on 09/24/18 reads as no active cardiopulmonary disease. EKG on 09/24/18 shows sinus tachycardia with a rate of 130, QTC 478, small Q waves in inferior leads. Abdominal x-ray on 09/25/18 reads as left ureteral stent in place and appears intact. Two dominant mid and lower pole left renal stones are visualized measuring up to 1.3 cm maximum dimension. Previous stone at the renal pelvis/ ureteropelvic junction is displaced approximately compared with the prior CT. Left pelvic phlebolith noted, unremarkable bowel gas pattern and soft tissue contours. Renal ultrasound on 09/25/18 reads as left ureteral stent is noted, calculi lower pole left kidney. CONSULTATIONS WHILE IN THE HOSPITAL: Dr. Garcia with Urology on 09/25/18. HISTORY OF PRESENT ILLNESS AND HOSPITAL COURSE: Ms. Christy is a 48-year-old female with a past medical history of diabetes mellitus type 2, hypertension, and nephrolithiasis. Please see the history and physical by Dr. Rodriguez for a complete summary of the events leading up to this hospitalization. In short, the patient is status post ureteral stent placement on 09/24/[address] [facility]. She was discharged from their facility and later that day presented to our emergency room with a fever. She was discharged home on Bactrim, though presented again to the emergency room on 09/25/18 with continued complaints of fever and chills. In the emergency room, she was noted to meet criteria for severe sepsis with fever, tachycardia, and lactic acidosis. The source was determined to be urinary. She was additionally noted to have some acute kidney injury with a creatinine of 122, mild hypokalemia with a potassium of 3.2, and elevated CRP at 80. Urinalysis was indicative of urinary tract infection. The patient was admitted by the hospitalist service. Ultimately, the urine culture did not show any growth, though the urine culture from 2 days prior on 09/23/18 did grow 75,000 to 100,000 colonies of pansensitive E. coli. The patient here in the hospital was placed on ceftriaxone. She did improve on the ceftriaxone and vital signs normalized. T- max was 102.1 degrees Fahrenheit and that was on 09/25/18. The patient has been monitored on telemetry, and there has been no arrhythmias. She initially did have some sinus tachycardia, though at this point that has resolved. She reports feeling significantly better and has not had any further fevers or chills. At this point, creatinine has decreased to 1.06. Dr. Garcia did see the patient on 09/25/18, and at that point noted that her stent was in good position and advised that she can continue IV antibiotics here and be discharged on oral antibiotics. He noted that she will need to wait at least 2 weeks for treatment of her left renal calculi and she will need to be recovered from her pyelonephritis. Today, the patient reports feeling well. She has no further complaints and does feel comfortable returning home at this point as she has been fever-free for greater than 24 hours. She has been urinating well without difficulty. No dysuria, hematuria, or urinary frequency. On exam, she has no focal neurological deficits. Heart has a regular rate and rhythm without murmurs, rubs, or gallops. Lung are clear to auscultation without rhonchi, wheezes, or rubs. Physical assessment is otherwise benign. The patient has been up ambulating at her baseline and offers no complaints. Ms. Christy is stable for discharge today. Vitals signs are as follows: Temp 97.6, heart rate 65, respiratory rate 16, oxygen saturation 98% on room air, blood pressure 119/47. DISCHARGE MEDICATIONS: New medications: 1. Cefdinir 300 mg p.o. b.i.d. x 8 days. 2. Acetaminophen 650 mg p.o. q.6 hours p.r.n. fever or pain. Continued medications: 1. Zetia 10 mg p.o. daily. 2. Levothyroxine 50 mcg p.o. daily. 3. Loratadine 10 mg p.o. daily. 4. Metformin 500 mg p.o. b.i.d. 5. Bupropion 150 mg p.o. daily. 6. Pravastatin 80 mg p.o. daily. Discontinued medication: Bactrim. DISCHARGE PLAN: Ms. Christy will be discharged home. ACTIVITY: Will be as tolerated. DIET: Will be regular as tolerated. Medications are as noted above. The patient has been prescribed an 8-day course of cefdinir to complete a total of 10 days of antibiotic therapy for her urinary tract infection. This is presumed to be pyelonephritis. So, a longer course of antibiotics is necessary. She can stop taking the Bactrim she had been taking previously. Again, the E. coli that grew in her urine culture was pansensitive, although at this point the patient has responded well to ceftriaxone, so I felt as though a third generation cephalosporin was a reasonable choice. She can continue her other usual medications as noted above. She will need to follow up with her primary care provider in 4 to 7 days. She additionally will need to follow up with her urologist at [facility] for further treatment of her kidney stones and eventual removal of stent. I did speak with Dr. Garcia and he advised that it would be best for the patient to continue to follow up with them as there may be some difficulty due to the positioning of her kidney stones. The patient has been advised to return to the emergency room or the nearest hospital for any worsening of symptoms, shortness of breath, lightheadedness, dizziness, chest discomfort, high fever, chills, night sweats, loss of consciousness or any other worrisome signs or symptoms, DISCHARGE CONDITION: Stable. DISCHARGE DISPOSITION: Home. This is a summarized report of a complex medical history and hospital stay. For further details, please see the entire medical record. TIME SPENT: Approximately 40 minutes was spent on this discharge. MONIQUE BAKER, TABBY [id number]/[facility] #: [id number] NOEL
== END 2018-09-27 13:44 | disposition home or self-care (01) | DRG 872 ==
LOC: ED 23:12 → MEDTELE 09-25 08:34
PROVIDERS: ADMIT Internal Medicine; ATTEND Internal Medicine
DX: A41.9 Sepsis, unspecified organism (principal); N17.9 Acute kidney failure, unspecified; N12 Tubulo-interstitial nephritis, not specified as acute or chronic; F17.210 Nicotine dependence, cigarettes, uncomplicated; R65.20 Severe sepsis without septic shock; N20.0 Calculus of kidney; G47.30 Sleep apnea, unspecified; F41.9 Anxiety disorder, unspecified; E87.6 Hypokalemia; B96.20 Unspecified Escherichia coli [E. coli] as the cause of diseases classified elsewhere; E11.9 Type 2 diabetes mellitus without complications; E78.5 Hyperlipidemia, unspecified; F32.9 Major depressive disorder, single episode, unspecified; E03.9 Hypothyroidism, unspecified; Z79.84 Long term (current) use of oral hypoglycemic drugs; Z79.890 Hormone replacement therapy; Z88.8 Allergy status to other drugs, medicaments and biological substances; Z98.51 Tubal ligation status; Z82.49 Family history of ischemic heart disease and other diseases of the circulatory system; Z72.89 Other problems related to lifestyle; Z96.0 Presence of urogenital implants
CPT/HCPCS: 36415; 71045; 74018; 76775; 80048; 80053; 81003; 81015; 83605; 84484; 85025; 85610; 85730; 86140; 87040; 87086; 93005; 99284; A9270-GY; J0696; J1580; J1644